=== PATIENT | female | born 1950 | race Caucasian/White ===

== ENCOUNTER 2022-11-09 11:48 | Outpatient (CLI) | payer MEDICARE, MEDICAID, SELFPAY ==
[2022-11-09 12:12] LABS: Basophils Absolute Auto 0.1 K/mm3 (0.0-0.1); Basophils Percent Auto 0.5 % (0.2-1.2); Eosinophils Absolute Auto 0.9 K/mm3 (0-0.3); Eosinophils Percent Auto 4.5 % (0-4.4); Hemoglobin 13.5 g/dL (12.0-15.0); Immature Granulocyte Absolute 0.11 K/mm3 (0.00-0.031); Immature Granulocyte Percent A 0.6 % (0-0.5); Lymphocytes Absolute Auto 3.81 K/mm3 (0.9-3.2); Lymphocytes Percent Auto 19.7 % (18.3-44.2); Mean Corpuscular HGB Conc 32.1 g/dl (32-36); Mean Corpuscular Hemoglobin 28.2 pg (26-34); Mean Corpuscular Volume 87.9 fl (80-100); Mean Platelet Volume 9.6 fl (7.4-10.4); Monocytes Absolute Auto 1.2 K/mm3 (0.1-0.6); Neutrophils Absolute Auto 13.3 K/mm3 (1.3-6.7); Neutrophils Percent Auto 68.7 % (45.5-73.1); Platelet Count Result 339 k/mm3 (150-375); Red Blood Count 4.78 M/mm3 (4.2-5.4); Red Cell Distribution Width 14.5 % (11.5-14.5); White Blood Count 19.4 K/mm3 (4.5-10.0)
[2022-11-09 13:33] LABS: Alanine Aminotransferase 38 U/L (6-35); Albumin Level 4.3 g/dL (3.5-5.1); Alkaline Phosphatase 127 U/L (38-126); Anion Gap 9 mmol/L (8-16); Aspartate Amino Transferase 33 U/L (14-36); Bilirubin,Total 0.6 mg/dL (0.2-1.3); Blood Urea Nitrogen 34 mg/dL (7-17); CRP 0.9 mg/dL (<1.0); Calcium 9.7 mg/dL (8.4-10.2); Carbon Dioxide 28 mmol/L (22-30); Chloride 103 mmol/L (98-107); Estimated Glomerular Filt Rate 40; Glucose 65 mg/dL (65-110); Potassium 4.6 mmol/L (3.4-5.0); Sodium 140 mmol/L (137-145)
[2022-11-09 13:44] LABS: Erythrocyte Sedimentation Rate 16 mm/hr (0-20)
[2022-11-13 14:12] LABS: BCR/abl Prior Result Not Given
[2022-11-13 14:58] LABS: BCR/abl P210 Not Detected
[2022-11-13 14:59] LABS: BCR/abl P210 Chg YES
== END 2022-11-09 11:49 | disposition home or self-care (01) ==
LOC: ANHLAB 11:54
PROVIDERS: Visit Provider Internal Medicine Hematology & Oncology
DX: D72.829 Elevated white blood cell count, unspecified (principal)
CPT/HCPCS: 36415; 80053; 81207; 85025; 85652; 86140; 88184

== ENCOUNTER 2023-04-04 13:35 | Outpatient (CLI) | payer MEDICARE, MEDICAID, SELFPAY ==
[2023-04-04 13:51] LABS: Basophils Absolute Auto 0.1 K/mm3 (0.0-0.1); Basophils Percent Auto 0.4 % (0.2-1.2); Eosinophils Absolute Auto 0.5 K/mm3 (0-0.3); Eosinophils Percent Auto 2.9 % (0-4.4); Hematocrit 40.5 % (37.0-47.0); Hemoglobin 13.2 g/dL (12.0-15.0); Immature Granulocyte Absolute 0.09 K/mm3 (0.00-0.031); Immature Granulocyte Percent A 0.6 % (0-0.5); Lymphocytes Absolute Auto 3.45 K/mm3 (0.9-3.2); Mean Corpuscular HGB Conc 32.6 g/dl (32-36); Mean Corpuscular Hemoglobin 29.1 pg (26-34); Mean Corpuscular Volume 89.4 fl (80-100); Mean Platelet Volume 9.6 fl (7.4-10.4); Monocytes Absolute Auto 1.1 K/mm3 (0.1-0.6); Monocytes Percent Auto 6.8 % (2.6-8.5); Neutrophils Absolute Auto 10.5 K/mm3 (1.3-6.7); Neutrophils Percent Auto 67.3 % (45.5-73.1); Platelet Count Result 322 k/mm3 (150-375); Red Blood Count 4.53 M/mm3 (4.2-5.4); Red Cell Distribution Width 14.1 % (11.5-14.5); White Blood Count 15.7 K/mm3 (4.5-10.0)
[2023-04-04 13:57] LABS: Blood Urea Nitrogen 30 mg/dL (8-26); Carbon Dioxide 23 mmol/L (22-30); Chloride 104 mmol/L (98-109); Estimated Glomerular Filt Rate 49; Glucose 80 mg/dL (70-105); Ionized Calcium (POC) 1.24 mmol/L (1.11-1.31); Potassium 4.2 mmol/L (3.5-4.9); Sodium 140 mmol/L (138-146)
[2023-04-04 14:38] LABS: Alanine Aminotransferase 29 U/L (6-35); Albumin Level 3.9 g/dL (3.5-5.1); Alkaline Phosphatase 91 U/L (38-126); Anion Gap 6 mmol/L (8-16); Aspartate Amino Transferase 23 U/L (14-36); Bilirubin,Total 0.4 mg/dL (0.2-1.3); Blood Urea Nitrogen 31 mg/dL (7-17); Calcium 9.6 mg/dL (8.4-10.2); Carbon Dioxide 26 mmol/L (22-30); Chloride 104 mmol/L (98-107); Estimated Glomerular Filt Rate 49; Glucose 82 mg/dL (65-110); Potassium 4.3 mmol/L (3.4-5.0); Sodium 136 mmol/L (137-145)
== END 2023-04-04 13:36 | disposition home or self-care (01) ==
LOC: ANHLAB 13:38
PROVIDERS: Visit Provider Internal Medicine Hematology & Oncology
DX: D72.829 Elevated white blood cell count, unspecified (principal)
CPT/HCPCS: 36415; 80047; 80053; 85025

== ENCOUNTER 2023-10-04 11:07 | Outpatient (CLI) | payer MEDICARE, MEDICAID, SELFPAY ==
[2023-10-04 11:20] LABS: Basophils Absolute Auto 0.1 K/mm3 (0.0-0.1); Basophils Percent Auto 0.4 % (0.2-1.2); Eosinophils Absolute Auto 0.4 K/mm3 (0-0.3); Eosinophils Percent Auto 2.8 % (0-4.4); Hematocrit 41.8 % (37.0-47.0); Hemoglobin 13.4 g/dL (12.0-15.0); Immature Granulocyte Percent A 0.6 % (0-0.5); Lymphocytes Absolute Auto 3.63 K/mm3 (0.9-3.2); Lymphocytes Percent Auto 23.1 % (18.3-44.2); Mean Corpuscular HGB Conc 32.1 g/dl (32-36); Mean Corpuscular Hemoglobin 28.3 pg (26-34); Mean Corpuscular Volume 88.2 fl (80-100); Mean Platelet Volume 9.4 fl (7.4-10.4); Monocytes Absolute Auto 1.1 K/mm3 (0.1-0.6); Monocytes Percent Auto 6.8 % (2.6-8.5); Neutrophils Absolute Auto 10.4 K/mm3 (1.3-6.7); Neutrophils Percent Auto 66.3 % (45.5-73.1); Platelet Count Result 315 k/mm3 (150-375); Red Blood Count 4.74 M/mm3 (4.2-5.4); Red Cell Distribution Width 13.6 % (11.5-14.5); White Blood Count 15.7 K/mm3 (4.5-10.0)
== END 2023-10-04 11:08 | disposition home or self-care (01) ==
LOC: ANHLAB 11:09
PROVIDERS: Visit Provider Internal Medicine Hematology & Oncology
DX: D72.829 Elevated white blood cell count, unspecified (principal)
CPT/HCPCS: 36415; 85025

== ENCOUNTER 2025-02-17 11:20 | Outpatient (CLI) | payer MEDICARE, MEDICAID, SELFPAY ==
--- OUTSIDE RECORDS SUMMARY | 2025-02-17 11:29 | XMS_ITS | Clinical Summary ---
Author Organization [facility] Address [address] [facility], [place] [address] Phone Care Team Providers Care Asbestos Remover Name Role Phone Ruslan Kellogg MD Unavailable Ren Green MD Primary Care Provider [phone] Allergies Active Allergy Reactions Criticality Noted Date Comments Brimonidine Other (see Comments) 03/23/2016 RED EYE Ramipril Hives 03/23/2016 Azithromycin Diarrhea 03/23/2016 Brinzolamide Other (see Comments) 03/23/2016 RED EYES Celecoxib Shortness of Breath 03/23/2016 Cyclobenzaprine Vomiting,Other (see Comments) 03/23/2016 DIZZINESS,DROZZINE SS Dextroamphetamine Shortness of Breath 03/23/2016 Gabapentin Nausea,Vomiting 03/23/2016 DIZZINESS,DROZZINE S, HOT AND CLAMMY Clotrimazole Hives 03/23/2016 Hydrochlorothiazide Hives 03/23/2016 Hydrocodone-Acetaminophen Nausea,Vomiting 03/23 Hydromorphone Nausea,Other (see Comments) 03/23/2016 DIZZINESS, HOT&CLAMMY, DROZZINESS Kiwi Extract Swelling 03/23/2016 Levofloxacin In D5w Rash 03/23/2016 Trichophyton Shortness of Breath 03/23/2016 Adhesive Tape Itching 03/23/2016 Tramadol Nausea 03/23/2016 DIZZINESS, DROZZINESS Medications Ipratropium-Albut roberto (COMBIVENT IN) take 100 mcg by inhalation 4 times daily. Active fluticasone-salme terol (ADVAIR) 250-50 MCG/DOSE AEROSOL POWDER, BREATH ACTIVATED take 1 Puff by inhalation 2 times daily. Active Tiotropium Wedron Monohydrate (SPIRIVA HANDIHALER IN) take by inhalation daily. Active nystatin 349670 UNIT/GM Powder Apply 100,000 Units 3 times daily. Apply to affected area as directed. Active Nystatin (NYAMYC) 853437 UNIT/GM Powder 100,000 Units by Apply externally route 4 times daily. Active insulin regular (HUMULIN R;NOVOLIN R) 100 UNIT/ML Solution 100 Units by Subcutaneous route 4 times daily (before meals and nightly). Use as directed Active insulin detemir (LEVEMIR) 100 UNIT/ML Solution 100 Units by Subcutaneous route every morning. Active diclofenac sodium (VOLTAREN) 1 % Gel Apply 1 % 4 times daily. Active desoximetasone (TOPICORT) 0.25 % Cream Apply 0.25 % 2 times daily. Active Travoprost, PUNEET Free, 0.004 % Solution Place in affected eye(s). Active furosemide (LASIX) 40 MG Tablet Take 40 mg by mouth daily. Active carvedilol (COREG) 6.25 MG Tablet Take 6.25 mg by mouth 2 times daily. Active meclizine (ANTIVERT) 12.5 MG Tablet Take 12.5 mg by mouth every 8 hours as needed. Active atorvastatin (LIPITOR) 40 MG Tablet Take 40 mg by mouth daily. Active montelukast (SINGULAIR) 10 MG Tablet Take 10 mg by mouth every evening. Active potassium chloride (MICRO-K) 10 MEQ Capsule CR Take 10 mEq by mouth 2 times daily. Active lisinopril (PRINIVIL, ZESTRIL) 5 MG Tablet Take 5 mg by mouth daily. Active albuterol (PROVENTIL, VENTOLIN) (2.5 MG/3ML) 0.083% Nebulizer Soln 2.5 mg by Nebulization route once. Active triamcinolone (KENALOG) 0.1 % Cream Apply 2 times daily. Apply thin film to affected area(s) twice daily until healed. Active Misc. Devices MiscIndications:A sthma without status asthmaticus, mild intermittent, uncomplicated Supply and instructions: 1 Each 0 03/23/20 16 Active hydrocortisone (ANUSOL-HC) 2.5 % Cream Apply daily. Apply to rectum as directed. Active HYDROcodone-aceta minophen (NORCO) 5-325 MG Tablet Take 1 Tablet by mouth every 4 hours as needed for Pain. Active solifenacin (VESICARE) 10 MG Tablet Take 10 mg by mouth daily. Active metFORMIN (GLUCOPHAGE) 500 MG Tablet Take 500 mg by mouth 2 times daily (with meals). Active Loratadine-Pseudo ephedrine (CLARITIN-D 24 HOUR PO) Take by mouth. Activ e Semaglutide (OZEMPIC, 1 MG/DOSE, SC) 5 mg by Subcutaneous route Every Sunday. Active ipratropium-albut roberto (COMBIVENT RESPIMAT) 20-100 MCG/ACT Aerosol Solution Combivent Respimat 20 mcg-100 mcg/actuation solution for inhalation INL 1 PUFF PO QID PRN Active Netarsudil-Latano prost (Rocklatan) 0.02-0.005 % Solution Rocklatan 0.02 %-0.005 % eye drops INSTILL 1 DROP IN BOTH EYES AT BEDTIME Active Dapagliflozin Propanediol (Farxiga) 5 MG Tablet Take by mouth. Activ e INSULIN DEGLUDEC SC by Subcutaneous route. Active doxycycline hyclate (VIBRA-TABS) 100 MG Tablet Take 100 mg by mouth 2 times daily. Active Active Problems Problem Noted Date Diagnosed Date HARINDER on CPAP 03/23/2016 Morbid obesity due to excess calories 03/23/2016 Hypertension 03/23/2016 Type 2 diabetes mellitus without complication Asthma without status asthmaticus 03/23/2016 Encounters Date Type Department Care Team Description 01/01/2025 Telephone [facility] - Pulmonology & Sleep Medicine [facility] [address] [place] [phone] Ruslan Kellogg MD 12/15/2024 Telephone [facility] - Pulmonology & Sleep Medicine - [address] [place] [phone] Ruslan Kellogg MD 12/09/2024 Telephone [facility] - Pulmonology & Sleep Medicine - [address] [place] [phone] Ruslan Kellogg MD from Last 3 Months Family History Medical History Relation Name Comments No Known Problems Brother Diabetes Father Heart Surgery Father No Known Problems Maternal Grandfather No Known Problems Maternal Grandmother Asthma Mother Chronic Obstructive Pulmonary Disease Mother Diabetes Mother No Known Problems Paternal Grandfather No Known Problems Paternal Grandmother Diabetes Sister YUNIEL Relation Name Status Comments Brother Alive Father Alive Maternal Grandfather Maternal Grandmother Mother Alive Paternal Grandfather Paternal Grandmother Sister YUNIEL Alive Social History Tobacco Use Types Packs/Day Years Used Date Smoking Tobacco: Never Smokeless Tobacco: Never Tobacco Cessation:Counseling Given: No Alcohol Use Standard Drinks/Week Comments No 0 (1 standard drink = 0.6 oz pur e alcohol) Sexually Active Control Partners Comments Not Currently Comments No Sex and Gender Information Value Date Recorded Sex Assigned at Not on file Legal Sex Female 12:33 AM CDT Gender Identity Not on file Sexual Orientation Not on file Last Filed Vital Signs Vital Sign Reading Time Taken Comments Blood Pressure 134/70 11/13/2024 11:45 AM SKIN THERAPIST Pulse 94 11/13/2024 11:45 AM SKIN THERAPIST Temperature 36.3 C (97.3 F) 11/13/2024 11:45 AM SKIN THERAPIST Respiratory Rate 18 11/13/2024 11:4 5 AM SKIN THERAPIST Oxygen Saturation 94% 11/13/2024 11: 45 AM SKIN THERAPIST Inhaled Oxygen Concentration - - Weight 100.6 kg (221 lb 11.2 oz) 2024 11:45 AM SKIN THERAPIST Height 165.1 cm (5' 5 ) 11/13/2024 11:4 5 AM SKIN THERAPIST Body Mass Index 36.89 11/13/2024 11:45 AM SKIN THERAPIST Plan of Treatment Upcoming Encounters Date Type Department Care Team (Late st Contact Info) Description 05/15/2025 11:30 AM CDT Office Visit [facility] - Pulmonology & Sleep Medicine - [address] [place] [phone] Ruslan Kellogg MD [address] [place] [phone] Health Maintenance Due Date Last Done Comments DEXA Bone Density 1950 Diabetes: Eye Exam 1950 Diabetes: Foot Exam 1950 Diabetes: Hemoglobin A1c 1950 Hepatitis C Virus (HCV) Screening 1950 Mammogram 1950 TdaP Immunization 1950 Diabetes: Nephropathy Screening 12/20/1969 Cologuard 12/20/2001 Immunochemical Fecal Occult Blood 12/20/2001 Respiratory Syncytial Virus (RSV) Immunization (Adult) (1 - Risk 60-74 years 1-dose series) 2011 Zoster Immunization (2 of 2) 11/05/2018 09/10/2018 SARS-COV-2 Immunization ( season) 2024 06/12/2023, 04/12/2022, 08/30/2021, Additional history exists Colonoscopy 06/12/2026 06/12/2016 Colorectal Cancer Screening 06/12/2026 06/12/2016 Pneumococcal Immunization (50+ years) Completed 06/30/2019, 01/15/2019, 07/19/2017, Additional history exists Pneumococcal Immunization Combined Discontinued 06/30/2019, 01/15/2019, 07/19/2017, Additional history exists Influenza Immunization Completed , 06/12/2023, 07/19/2022, Additional history exists Hepatitis B Immunization Aged Out No longer eligible based on patient's age to complete this topic Meningococcal Immunization (ACWY) Aged Out No longer eligible based on patient's age to complete this topic Rotavirus Immunization Aged Out No lo nger eligible based on patient's age to complete this topic Insurance [place] Member Subscriber Plan / Payer (Ef fective for All Dates) Name:Jessie Macdonald Relation to Subscriber:Self Name:Jessie Macdonald Payer ID:[id number] Group ID:Not on file Type:Not on file Address: [place] [phone] MEDICARE C [facility] Care Teams Asbestos Remover Relationship Specialty Start Date End Date Ren Green MD [address] [place] [phone] PCP - General Internal Medicine 07/16/18 Ruslan Kellogg MD [address] [place] [phone] Consulting Physician Pulmonary Disease 03/23/16
--- OUTSIDE RECORDS SUMMARY | 2025-02-17 11:29 | XMS_ITS | CONTINUITY OF CARE DOCUMENT ---
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 Name Role Phone Yovani Ramos MD Unavailable SOPHIE RAWLS MD Unavailable [phone] SOPHIE RAWLS MD Unavailable PROBLEMS Condition Status Date Provider Notes Asthma active SADE THOMPSON MD CHF active SADE THOMPSON MD Osteoarthrosis, generalized, involving unspecified site active SADE THOMPSON MD Personal history of unspecif ied malignant neoplasm active SADE THOMPSON MD ENCOUNTERS Date Type Provider Location Encounter Diag nosis - In-person encounter Office Visit SADE THOMPSON MD [place] [facility] - In-person encounter Office Visit SADE THOMPSON [facility] [place] [facility] - In-person encounter Office Visit SADE THOMPSON MD [place] [facility] - In-person encounter Office Visit SADE THOMPSON MD [place] [facility] - In-person encounter Office Visit S[facility] - In-person encounter Office Visit S[facility] - In-person encounter Office Visit SADE [facility] - In-[facility] encounter [facility] [place] [facility] - In-person encounter Office Visit SADE THOMPSON [facility] - In-person encounter Office Visit SADE THOM[facility] - In-person encounter Office Visit SADE THOM[facility] - In-person encounter Office Visit SADE THOM[facility] - In-person encounter Office Visit SADE THOM[facility] - In-person encounter Office Visit SADE THOM[facility] - In-person encounter Office Visit SADE TH[facility] - In-person encounter Office Visit SADE TH[facility] - In-person encounter Office Visit SADE TH[facility] - In-person encounter Office Visit SADE TH[facility] - In-person encounter Office Visit SADE TH[facility] - In-person encounter Office Visit SADE [facility] - In-person encounter Office Visit SADE [facility] - In-person encounter Office Visit SADE TH[facility] - In-person encounter Office Visit S[facility] - In-person encounter Office Visit [facility] - In-person encounter Office Visit SADE [facility] - In-person encounter Office Visit SADE [facility] - In-person encounter Office Visit SADE [facility] - In-person encounter Office Visit SADE TH[facility] - In-person encounter Office Visit SADE TH[facility] - In-person encounter Office Visit SADE THOM[facility] - In-person encounter Office Visit SADE [facility] - In-person encounter Office Visit SADE TH[facility] - In-person encounter Office Visit SADE THOMPS[facility] - In-person encounter Office Visit Danielle Chang [facility] - In-person encounter Office Visit Danielle [facility] - In-person encounter Office Visit Danielle Chang [facility] - In-person encounter Office Visit SADE THOMPSON MD [facility] - In-person encounter Office Visit SADE THOMPSON MD [facility] - In-person encounter Office Visit SADE THOMPSON [facility] - In[facility]person encounter Office Visit SADE THOMPSON MD [facility] - In-person encounter Office Visit SADE THOMPSON MD [facility] Personal history of unspecified malignant neoplasm - In-person encounter Office Visit SADE THOMPSON MD [facility] - In-person encounter Office Visit SADE THOMPSON MD [place] [facility] - In-person encounter Office Visit SADE THOMPSON MD [place] [facility] Osteoarthrosis, generalized, involving unspecified site - In-person encounter Office Visit SADE THOMPSON MD [place] [facility] - In-person encounter Office Visit Dianakeeley Chang [place] [facility] - In-person encounter Office Visit Danielle Chang [facility] - In-person encounter Office Visit Danielle Chang [facility] - In-person encounter Office Visit Danielle [facility] - In-person encounter Office Visit Danielle [facility] - In-person encounter Office Visit Danielle [facility] - In-person encounter Office Visit Danielle [facility] - In-person encounter Office Visit Danielle [facility] - In-person encounter Office Visit Danielle [facility] - In-person encounter Office Visit Dianakeeley Bernardo [facility] - In-person encounter Office Visit Danielle [facility] - In-person encounter Office Visit Danielle [facility] - In-person encounter Office Visit Danielle [facility] - In-person encounter Office Visit Danielle Chang [facility] - In-person encounter Office Visit Danielle [facility] - In-person encounter Office Visit Danielle [facility] - In-person encounter Office Visit Danielle [facility] - In-person encounter Office Visit Mercedes Saravia [facility] - In-person encounter Office Visit Danielle [facility] - In-person encounter Office Visit [facility] - In-person encounter Office Visit [facility] Office - In-person encounter Office Visit [facility] Office - In-person encounter Office Visit [facility] Office - In-person encounter Office Visit [facility] Office - In-person encounter Office Visit [facility] Office ALLERGIES Allergy Name Onset Date Reaction Criticality Status Z CARROLL High Criticality active LEVAQUIN Low Criticality active CELEBREX Low Criticality active HYDROCHLOROTHIAZIDE Low Criticality active GABAPENTIN Low Criticality active RESULTS Date Observation Value Provider Reference Range Interpretation Location basophil count, absolute 0.0 x10E3/uL [facility] 0.0-0.2 Eosinophil Absolute Count 0.5 X10E3/UL [facility] 0.0-0.4 High monocyte count, blood, automated 1.1 X10E3/UL [facility] 0.1-0.9 High lymphocyte count, blood, automated 3.4 X10E3/UL [facility] 0.7-3.1 High Absolute Neutrophils 11.3 X10E3/UL [facility] 1.4-7.0 High basophils as percent of blood leukocytes 0 % [facility] Not Estab. eosinophils as percent of blood leukocytes 3 % [facility] Not Estab. monocytes as percent of blood leukocytes 7 % [facility] Not Estab. lymphocytes as percent of blood leukocytes 21 % [facility] Not Estab. neutrophils as percent of blood leukocytes 69 % [facility] Not Estab. platelet count 319 X10E3/UL [facility] [id number] 2592/03/ 02 red blood cell distribution width 15.0 % [facility] 12.3-15.4 mean corpuscular hemoglobin concentration, RBC 32.1 G/DL [facility] 31.5-35.7 mean corpuscular hemoglobin, RBC 28.4 pg [facility] 26.6-33.0 mean corpuscular volume, RBC 88 fL [facility] 79-97 hematocrit, blood 38.6 % [facility] 34.0-46.6 hemoglobin, blood 12.4 g/dL [facility] 11.1-15.9 erythrocyte (RBC) count 4.37 X10E6/UL [facility] 3.77-5.28 leukocyte count, blood 16.4 X10E3/UL [facility] 3.4-10.8 High lipoprotein, beta, serum, point, quantitative, calculated 55 mg/dL [facility] 0-99 very low density lipoproteins 45 mg/dL [facility] 5-40 High HDL cholesterol, serum 37 mg/dL [facility] >39 Low triglyceride, serum, random 225 mg/dL [facility] 0-149 High cholesterol, serum 137 mg/dL [facility] [phone]/03/ 02 alanine aminotransferase (SGPT), serum 16 1/L [facility] 0-32 aspartate aminotransferase (SGOT), serum 18 1/L [facility] 0-40 alkaline phosphatase, serum 84 1/L [facility] 39-117 bilirubin, serum, total 0.3 mg/dL [facility] 0.0-1.2 albumin/globulin ratio, serum 1.5 [facility] 1.2-2.2 globulin, serum 2.9 [facility] 1.5-4.5 albumin, serum 4.3 g/dL [facility] 3.6-4.8 protein, total, serum 7.2 g/dL [facility] 6.0-8.5 calcium, serum 10.5 mg/dL [facility] 8.7-10.3 High carbon dioxide, venous blood 24 mmol/L [facility] 18-29 chloride, serum 99 mmol/L [facility] 96-106 potassium, serum 5.2 mmol/L [facility] 3.5-5.2 sodium, serum 141 mmol/L [facility] 145-267 7937/03/ 02 urea nitrogen/creatinine ratio, serum 24 [facility] 12-28 eGFR if not 42 mL/min/{1.7 3_m2} [facility] >59 Low creatinine, serum 1.32 mg/dL [facility] 0.57-1.00 High urea nitrogen, blood 32 mg/dL [facility] 8-27 High blood glucose, random 105 mg/dL [facility] 65-99 High hemoglobin A1C, blood, as % of total hemoglobin 7.1 % [facility] 4.8-5.6 High thyroid stimulating hormone, serum 0.158 ??IU/ML [facility] 0.270 - 4.200 Low very low density lipoproteins 56.8 mg/dL [facility] 5.0 - 40.0 High LDL/HDL (low-density lipoprotein/high-den sity lipoprotein) ratio 1.9 RATIO [facility] - lipoprotein, beta, serum, point, quantitative, calculated 67.2 (?) [facility] 0.0 - 100.0 HDL cholesterol, serum 36.0 mg/dL [facility] 45.0 - 65.0 Low cholesterol, serum 160.0 mg/dL [facility] 0.0 - 200.0 triglyceride, serum, fasting 284.0 mg/dL [facility] 0.0 - 150.0 High anion gap, serum 20.2 [facility] - albumin/globulin ratio, serum 1.4 g/dL [facility] 1.1 - 2.5 globulin, serum 3.2 [facility] 2.3 - 3.8 urea nitrogen/creatinine ratio, serum 31.4 [facility] Estimated Glomerular Filtration Rate (calc) 40.1 (?) [facility] 59.0 - Low chloride, serum [facility].8 [facility] 107.0 potassium, serum 5.0 mmol/L [facility] 3.5 - 5.1 sodium, serum 140.0 mmol/L [facility] 136.0 - 145.0 creatinine, serum 1.4 mg/dL [facility] 0.5 - 1.0 High carbon dioxide, venous blood 20.0 mmol/L [facility] 23.0 - 31.0 Low albumin, serum 4.5 g/dL [facility] 3.5 - 5.2 calcium, serum 10.1 mg/dL [facility] 8.6 - 10.2 aspartate aminotransferase (SGOT), serum 17.0 1/L [facility] 0.0 - 32.0 alkaline phosphatase, serum 96.0 1/L [facility] 40.0 - 130.0 alanine aminotransferase (SGPT), serum 24.0 1/L [facility] 0.0 - 33.0 protein, total, serum 7.7 g/dL [facility] 6.6 - 8.7 bilirubin, serum, total 0.3 mg/dL [facility] 0.0 - 1.2 urea nitrogen, blood 44.0 mg/dL [facility] 8.0 - 23.0 High blood glucose, random 178.0 mg/dL [facility] 74.0 - 99.0 High red blood cell distribution width, size density 49.2 fL [facility] - immature granulocytes, percentage of total cells, blood 0.7 % [facility] - nucleated red blood cells as percent of blood leukocytes 0.0 % [facility] - red blood cell (erythrocyte) count, per high power field 0.0 10*3/UL [facility] - eosinophils as percent of blood leukocytes 4.1 % [facility] - neutrophils as percent of blood leukocytes 65.6 % [facility] - Absolute Neutrophils 10.5 CELLS/UL [facility] 1.5 - 7.8 High basophils as percent of blood leukocytes 0.6 % [facility] - Absolute Basophils 0.1 CELLS/UL [facility] 0.0 - 0.2 monocytes as percent of blood leukocytes 5.2 % [facility] - Absolute Monocytes 0.8 CELLS/UL [facility] 0.2 - 1.0 lymphocytes as percent of blood leukocytes 23.8 % [facility] - Absolute Lymphocytes 3.8 CELLS/UL [facility] 0.9 - 3.9 mean platelet volume 11.9 (?) [facility] - platelet count 108.0 THOUSAND/UL [facility] 100.0 - 400.0 mean corpuscular hemoglobin concentration, RBC 31.4 G/DL [facility] 31.0 - 38.0 mean corpuscular hemoglobin, RBC 28.6 pg [facility] 25.0 - 35.0 mean corpuscular volume, RBC 91.2 fL [facility] 75.0 - 100.0 hematocrit, blood 40.5 % [facility] 35.0 - 55.0 hemoglobin, blood 12.7 g/dL [facility] 11.5 - 16.5 erythrocyte count, whole blood 4.4 MILLION/UL [facility] 3.5 - 5.5 hemoglobin A1C, blood, as % of total hemoglobin 8.5 % [facility] 4.0 - 5.6 High thyroid stimulating hormone, serum 0.027 ??IU/ML [facility] 0.270 - 4.200 Low very low density lipoproteins 53.4 mg/dL [facility] 5.0 - 40.0 High LDL/HDL (low-density lipoprotein/high-den sity lipoprotein) ratio 1.6 [facility] - lipoprotein, beta, serum, point, quantitative, calculated 67.6 (?) [facility] 0.0 - 100.0 HDL cholesterol, serum 43.0 mg/dL [facility] 45.0 - 65.0 Low cholesterol, serum 164.0 mg/dL [facility] 0.0 - 200.0 triglyceride, serum, fasting 267.0 mg/dL [facility] 0.0 - 150.0 High anion gap, serum 18.4 [facility] - albumin/globulin ratio, serum 1.4 g/dL [facility] 1.1 - 2.5 globulin, serum 3.0 [facility] 2.3 - 3.8 urea nitrogen/creatinine ratio, serum 31.1 [facility] - Estimated Glomerular Filtration Rate (calc) 67.0 (?) [facility] 59.0 - chloride, serum 101.6 mmol/L [facility] 98.0 - 107.0 potassium, serum 4.9 mmol/L [facility] 3.5 - 5.1 sodium, serum 142.0 mmol/L [facility] 136.0 - 145.0 creatinine, serum 0.9 mg/dL [facility] 0.5 - 1.0 carbon dioxide, venous blood 22.0 mmol/L [facility] 23.0 - 31.0 Low albumin, serum 4.2 g/dL [facility] 3.5 - 5.2 calcium, serum 10.5 mg/dL [facility] 8.6 - 10.2 High aspartate aminotransferase (SGOT), serum 26.0 1/L [facility] 0.0 - 32.0 alkaline phosphatase, serum 105.0 1/L [facility] 40.0 - 130.0 alanine aminotransferase (SGPT), serum 33.0 1/L [facility] 0.0 - 33.0 protein, total, serum 7.2 g/dL [facility] 6.6 - 8.7 bilirubin, serum, total 0.4 mg/dL [facility] 0.0 - 1.2 urea nitrogen, blood 28.0 mg/dL [facility] 8.0 - 23.0 High blood glucose, random 192.0 mg/dL [facility] 74.0 - 99.0 High red blood cell distribution width, size density 45.6 fL [facility] - immature granulocytes, percentage of total cells, blood 0.6 % [facility] - nucleated red blood cells as percent of blood leukocytes 0.0 % [facility] - red blood cell (erythrocyte) count, per high power field 0.0 10*3/UL [facility] eosin[facility] as percent of blood leukocytes 3.2 % [facility] - neutrophils as percent of blood leukocytes 65.9 % [facility] - Absolute Neutrophils 10.5 CELLS/UL [facility] 1.5 - 7.8 High basophils as percent of blood leukocytes 0.6 % [facility] - Absolute Basophils 0.1 CELLS/UL [facility] 0.0 - 0.2 monocytes as percent of blood leukocytes 5.9 % [facility] Absolute Monocytes 0.9 CELLS/UL [facility] 0.2 - 1.0 lymphocytes as percent of blood leukocytes 23.8 % [facility] - Absolute Lymphocytes 3.8 CELLS/UL [facility] 0.9 - 3.9 mean platelet volume 11.4 (?) [facility] - platelet count 229.0 THOUSAND/UL [facility] 100.0 - 400.0 mean corpuscular hemoglobin concentration, RBC 31.1 G/DL [facility] 31.0 - 38.0 mean corpuscular hemoglobin, RBC 27.5 pg [facility] 25.0 - 35.0 mean corpuscular volume, RBC 88.4 fL [facility] 75.0 - 100.0 hematocrit, blood 47.3 % [facility] 35.0 - 55.0 hemoglobin, blood 14.7 g/dL [facility] 11.5 - 16.5 erythrocyte count, whole blood 5.4 MILLION/UL [facility] 3.5 - 5.5 hemoglobin A1C, blood, as % of total hemoglobin 10.7 % [facility] 4.0 - 5.6 High thyroid stimulating hormone, serum 0.082 ??IU/ML [facility] 0.270 - 4.200 Low very low density lipoproteins 42.4 mg/dL [facility] 5.0 - 40.0 High LDL/HDL (low-density lipoprotein/high-den sity lipoprotein) ratio 1.7 RATIO [facility] - lipoprotein, beta, serum, point, quantitative, calculated 83.6 (?) [facility] 0.0 - 100.0 HDL cholesterol, serum 48.0 mg/dL [facility] 45.0 - 65.0 cholesterol, serum 174.0 mg/dL [facility] 0.0 - 200.0 triglyceride, serum, fasting 212.0 mg/dL [facility] 0.0 - 150.0 High anion gap, serum 15.6 [facility] - albumin/globulin ratio, serum 2.7 g/dL [facility] 1.1 - 2.5 High globulin, serum 3.3 [facility] 2.3 - 3.8 urea nitrogen/creatinine ratio, serum 27.5 [facility] - Estimated Glomerular Filtration Rate (calc) 48.1 (?) [facility] 59.0 - Low chloride, serum 97.4 mmol/L [facility] 98.0 - 107.0 Low potassium, serum 4.6 mmol/L [facility] 3.5 - 5.1 sodium, serum 139.0 mmol/L [facility] 136.0 - 145.0 creatinine, serum 1.2 mg/dL [facility] 0.5 - 1.0 High carbon dioxide, venous blood 26.0 mmol/L [facility] 23.0 - 31.0 albumin, serum 4.6 g/dL [facility] 3.5 - 5.2 calcium, serum 10.0 mg/dL [facility] 8.6 - 10.2 aspartate aminotransferase (SGOT), serum 20.0 1/L [facility] 0.0 - 32.0 alkaline phosphatase, serum 98.0 1/L [facility] 40.0 - 130.0 alanine aminotransferase (SGPT), serum 29.0 1/L [facility] 0.0 - 33.0 protein, total, serum 7.9 g/dL [facility] 6.6 - 8.7 bilirubin, serum, total 0.4 mg/dL [facility] 0.[facility] - 1.2 urea nitrogen, blood 33.0 mg/dL [facility] 8.0 - 23.0 High blood glucose, random 192.0 mg/dL [facility] 74.0 - 99.0 High red blood cell distribution width, size density 49.1 fL [facility] immature granulocytes, percentage of total cells, blood 0.7 % [facility] nucleated red blood cells as percent of blood leukocytes 0.0 % [facility] red blood cell (erythrocyte) count, per high power field 0.0 10*3/UL [facility] eosinophils as percent of blood leukocytes 3.1 % [facility] neutrophils as percent of blood leukocytes 61.6 % [facility] Absolute Neutrophils 8.4 CELLS/UL [facility] 1.5 - 7.8 [facility] basophils as percent of blood leukocytes 0.6 % [facility] Absolute Basophils 0.1 CELLS/UL [facility] 0.0 - 0.2 monocytes as percent of blood leukocytes 6.6 % [facility] Absolute Monocytes 0.9 CELLS/UL [facility] 0.2 - 1.0 lymphocytes as percent of blood leukocytes 27.4 % [facility] Absolute Lymphocytes 3.8 CELLS/UL [facility] 0.9 - 3.9 mean platelet volume 10.8 (?) [facility] - platelet count 211.0 THOUSAND/UL [facility] 100.0 - 400.0 mean corpuscular hemoglobin concentration, RBC 30.1 G/DL [facility] 31.0 - 38.0 Low mean corpuscular hemoglobin, RBC 27.5 pg [facility] 25.0 - 35.0 mean corpuscular volume, RBC 91.4 fL [facility] 75.0 - 100.0 hematocrit, blood 45.5 % [facility] 35.0 - 55.0 hemoglobin, blood 13.7 g/dL [facility] 11.5 - 16.5 erythrocyte count, whole blood 5.0 MILLION/UL [facility] 3.5 - 5.5 hemoglobin A1C, blood, as % of total hemoglobin 8.0 % [facility] 4.0 - 6.0 High red blood cell distribution width, size density 52.4 fL [facility] - immature granulocytes, percentage of total cells, blood 0.6 % [facility] - nucleated red blood cells as percent of blood leukocytes 0.1 % [facility] - red blood cell (erythrocyte) count, per high power field 0.0 10*3/UL [facility] - eosinophils as percent of blood leukocytes 3.3 % [facility] - neutrophils as percent of blood leukocytes 61.3 % [facility] - Absolute Neutrophils 9.7 CELLS/UL [facility] 1.5 - 7.8 High basophils as percent of blood leukocytes 0.6 % [facility] - Absolute Basophils 0.1 CELLS/UL [facility] 0.0 - 0.2 monocytes as percent of blood leukocytes 5.9 % [facility] - Absolute Monocytes 0.9 CELLS/UL [facility] 0.2 - 1.0 lymphocytes as percent of blood leukocytes 28.3 % [facility] - Absolute Lymphocytes 4.5 CELLS/UL [facility] 0.9 - 3.9 High mean platelet volume 10.5 (?) [facility] - platelet count 343.0 THOUSAND/UL [facility] 100.0 - 400.0 mean corpuscular hemoglobin concentration, RBC 30.3 G/DL [facility] 31.0 - 38.0 Low mean corpuscular hemoglobin, RBC 27.6 pg [facility] 25.0 - 35.0 mean corpuscular volume, RBC 91.2 fL [facility] 75.0 - 100.0 hematocrit, blood 40.3 % [facility] 35.0 - 55.0 hemoglobin, blood 12.2 g/dL [facility] 11.5 - 16.5 erythrocyte count, whole blood 4.4 MILLION/UL [facility] 3.5 - 5.5 hemoglobin A1C, blood, as % of total hemoglobin 7.0 % [facility] 4.0 - 6.0 High very low density lipoproteins 55.0 mg/dL [facility] 5.0 - 40.0 High LDL/HDL (low-density lipoprotein/high-den sity lipoprotein) ratio 1.8 RATIO [facility] - lipoprotein, beta, serum, point, quantitative, calculated 72.0 (?) [facility] 0.0 - 100.0 HDL cholesterol, serum 39.0 mg/dL [facility] 45.0 - 65.0 Low cholesterol, serum 166.0 mg/dL [facility] 0.0 - 200.0 triglyceride, serum, fasting 275.0 mg/dL [facility] 0.0 - 150.0 High thyroid stimulating hormone, serum 0.049 ?IU/ML [facility] 0.270 - 4.200 Low anion gap, serum 19.5 [facility] - albumin/globulin ratio, serum 2.5 g/dL [facility] 1.1 - 2.5 High globulin, serum 3.2 [facility] 2.3 - 3.8 urea nitrogen/creatinine ratio, serum 38.9 [facility] - Estimated Glomerular Filtration Rate (calc) 67.2 (?) [facility] 59.0 - chloride, serum 100.5 mmol/L [facility] 98.0 - 107.0 potassium, serum 5.3 mmol/L [facility] 3.5 - 5.1 High sodium, serum 140.0 mmol/L [facility] 136.0 - 145.0 creatinine, serum 0.9 mg/dL [facility] 0.5 - 0.9 carbon dioxide, venous blood 20.0 mmol/L [facility] 23.0 - 31.0 Low albumin, serum 4.4 g/dL [facility] 3.5 - 5.2 calcium, serum 10.1 mg/dL [facility] 8.6 - 10.2 aspartate aminotransferase (SGOT), serum 16.0 1/L [facility] 0.0 - 32.0 alkaline phosphatase, serum 81.0 1/L [facility] 40.0 - 130.0 alanine aminotransferase (SGPT), serum 23.0 1/L [facility] 0.0 - 33.0 protein, total, serum 7.6 g/dL [facility] 6.6 - 8.7 bilirubin, serum, total 0.3 mg/dL [facility] 0.0 - 1.2 urea nitrogen, blood 35.0 mg/dL [facility] 8.0 - 23.0 High blood glucose, random 142.0 mg/dL [facility] 74.0 - 99.0 High thyroid stimulating hormone, serum 0.03 u[IU]/mL [facility] 0.270-4.20 Low thyroxine, serum, free 1.16 ng/dL [facility] 0.93-1.7 Normal thyroxine, serum, total 7.10 ug/dL [facility] 4.5-11.7 Normal hemoglobin A1C, blood, as % of total hemoglobin 8.2 % [facility] Normal bilirubin, serum, total 0.4 mg/dL [facility] 0-1.2 Normal alanine aminotransferase (SGPT), serum 19 1/L [facility] 0-33 Normal aspartate aminotransferase (SGOT), serum 15 1/L [facility] 0-32 Normal alkaline phosphatase, serum 95 1/L [facility] 35-104 Normal albumin/globulin ratio, serum 1.4 ratio [facility] 1.0-2.6 Normal globulin, serum 2.9 [facility] 1.6-4.0 Normal albumin, serum 4.2 g/dL [facility] 3.97-4.94 Normal protein, total, serum 7.1 g/dL [facility] 6.6-8.7 Normal calcium, serum 9.6 mg/dL [facility] 8.6-10.0 Normal blood glucose, random 226 mg/dL [facility] 74-109 High eGFR if 109 mL/min/{1.7 3_m2} [facility] >60 Normal eGFR if not 90 mL/min/{1.7 3_m2} [facility] >60 Normal urea nitrogen/creatinine ratio, serum 21.4 ratio [facility] 8.0-25.0 Normal creatinine, serum 0.7 mg/dL [facility] 0.50-0.90 Normal urea nitrogen, blood 15 mg/dL [facility] 6-20 Normal carbon dioxide, venous blood 25 mmol/L [facility] 22-29 Normal chloride, serum 98 MEQ/L [facility] 98-107 Normal potassium, serum 4.8 MEQ/L [facility] 3.5-5.1 Normal sodium, serum 140 MEQ/L [facility] 136-145 Normal LDL/HDL (low-density lipoprotein/high-den sity lipoprotein) ratio 1.1 RATIO [facility] 0.2-4.3 Normal VLDL cholesterol 37 mg/dL [facility] 8-41 Normal lipoprotein, beta, serum, point, quantitative, calculated 59 mg/dL [facility] 0-130 Normal cholesterol/HDL ratio, serum, percent 2.8 ratio [facility] 1.5-5.6 Normal HDL cholesterol, serum 52 mg/dL [facility] 65 Low triglyceride, serum, fasting 184 mg/dL [facility] Normal cholesterol, serum 148 mg/dL [facility] 0-199 Normal basophils, absolute, manual 0.07 K/UL [facility] 0.0-0.1 Normal basophils as percent of blood leukocytes 0.6 % [facility] 0.3-0.9 Normal eosinophils, absolute, manual 0.22 K/UL [facility] 0.1-0.5 Normal eosinophils as percent of blood leukocytes 2.0 % [facility] 1.1-7.6 Normal monocyte count, blood 1.14 10*3/mm3 [facility] 0.2-0.7 High monocytes as percent of blood leukocytes 10.1 % [facility] 4.2-11.2 Normal lymphocytes as percent of blood leukocytes 3.53 K/UL [facility] 0.6-3.4 High lymphocytes, absolute 31.4 % [facility] 19.8-46.2 Normal neutrophil count, absolute 6.29 K/uL [facility] 1.9-5.9 High neutrophils as percent of blood leukocytes 55.9 % [facility] 42.7-72.4 Normal mean platelet volume 9.3 % [facility] 7.4-9.9 Normal red blood cell distribution width 12.8 % [facility] 10.9-14.6 Normal platelet count 93 10*3/mm3 [facility] 165-429 Low mean corpuscular hemoglobin concentration, RBC 33.5 % [facility] 32.5-34.5 Normal mean corpuscular hemoglobin, RBC 29.2 pg [facility] 21.5-33.3 Normal mean corpuscular volume, RBC 87 fL [facility] 76-98 Normal hematocrit, blood 38.7 % [facility] 34.4-47.3 Normal hemoglobin, blood 13.0 g/dL [facility] 11.8-15.6 Normal erythrocyte (RBC) count 4.45 M/UL [facility] 3.8-5.5 Normal leukocyte count, blood 11.2 10*3/mm3 [facility] 3.7-8.9 High Clostridium difficile toxin A+B, serum, quantitative Negative [facility] Negative thyroxine, serum, total 9.1 ug/dL [facility] 4.5-12.0 thyroid stimulating hormone, serum 0.031 u[IU]/mL [facility] 0.450-4.500 Low lipoprotein, beta, serum, point, quantitative, calculated 57 mg/dL [facility] 0-99 very low density lipoproteins 23 mg/dL [facility] 5-40 HDL cholesterol, serum 40 mg/dL [facility] >39 triglyceride, serum, random 113 mg/dL [facility] 0-149 cholesterol, serum 120 mg/dL [facility] [phone]/03/ 20 alanine aminotransferase (SGPT), serum 15 1/L [facility] 0-40 aspartate aminotransferase (SGOT), serum 14 1/L [facility] 0-40 alkaline phosphatase, serum 90 1/L [facility] 25-150 bilirubin, serum, total 0.4 mg/dL [facility] 0.0-1.2 albumin/globulin ratio, serum 1.3 [facility] 1.1-2.5 globulin, serum 2.9 [facility] 1.5-4.5 albumin, serum 3.9 g/dL [facility] 3.5-5.5 protein, total, serum 6.8 g/dL [facility] 6.0-8.5 calcium, serum 9.5 mg/dL [facility] 8.7-10.2 carbon dioxide, venous blood 26 mmol/L [facility] 20-32 chloride, serum 104 mmol/L [facility] 97-108 potassium, serum 4.4 mmol/L [facility] 3.5-5.2 sodium, serum 141 mmol/L [facility] [phone]/03/ 20 urea nitrogen/creatinine ratio, serum 24 [facility] 9-23 High eGFR if 110 mL/min/{1.7 3_m2} [facility] >59 eGFR if not 95 mL/min/{1.7 3_m2} [facility] >59 creatinine, serum 0.70 mg/dL [facility] 0.57-1.00 urea nitrogen, blood 17 mg/dL [facility] 6-24 blood glucose, random 104 mg/dL [facility] 65-99 High basophil count, absolute 0.0 x10E3/uL [facility] 0.0-0.2 Eosinophil Absolute Count 0.6 X10E3/UL [facility] 0.0-0.4 High monocyte count, blood, automated 0.8 X10E3/UL [facility] 0.1-1.0 lymphocyte count, blood, automated 4.9 X10E3/UL [facility] 0.7-4.5 High Absolute Neutrophils 9.2 X10E3/UL [facility] 1.8-7.8 High basophils as percent of blood leukocytes 0 % [facility] 0-3 eosinophils as percent of blood leukocytes 4 % [facility] 0-7 monocytes as percent of blood leukocytes 5 % [facility] 4-13 lymphocytes as percent of blood leukocytes 31 % [facility] 14-46 neutrophils as percent of blood leukocytes 60 % [facility] 40-74 platelet count 362 X10E3/UL [facility] [phone]/03/ 20 red blood cell distribution width 14.3 % [facility] 11.7-15.0 mean corpuscular hemoglobin concentration, RBC 31.9 G/DL [facility] 32.0-36.0 Low mean corpuscular hemoglobin, RBC 27.2 pg [facility] 27.0-34.0 mean corpuscular volume, RBC 85 fL [facility] 80-98 hematocrit, blood 42.9 % [facility] 34.0-44.0 hemoglobin, blood 13.7 g/dL [facility] 11.5-15.0 erythrocyte (RBC) count 5.04 X10E6/UL [facility] 3.80-5.10 leukocyte count, blood 15.6 X10E3/UL [facility] 4.0-10.5 High HISTORY OF MEDICATION USE Medication Status Instructions Dates Provider Indications Com ments ADVAIR DISKUS 250-50 MCG/DOSE INHALATION AEROSOL POWDER BREATH ACTIVATED active use one inhalation by mouth twice daily 2 Brissa Patel ACCU-CHEK SOFTCLIX LANCETS active test 6 times daily 8 Brissa Patel dx E11.9 MECLIZINE HCL 12.5 MG ORAL TABLET active take one tablet by mouth twice daily 8 Brissa Patel POTASSIUM CHLORIDE ANTONIO ER 10 MEQ ORAL TABLET EXTENDED RELEASE active 1 TABLET DAILY 1 SADE THOMPSON MD LASIX 40 MG ORAL TABLET active ALTERNATE TAKING 1 TABLET DAILY AND 2 TABLETS DAILY 1 SADE THOMPSON MD LISINOPRIL 5 MG ORAL TABLET active ONE TAB. DAILY 2 SADE THOMPSON MD HUMULIN N 100 UNIT/ML SUBCUTANEOUS SUSPENSION active 15 units twice daily 1 SADE THOMPSON MD LANTUS 100 UNIT/ML SUBCUTANEOUS SOLUTION active INJECT 50 UNITS IN THE MORNING 1 SADE THOMPSON MD POTASSIUM CHLORIDE ANTONIO ER 10 MEQ ORAL TABLET EXTENDED RELEASE completed ONE TAB. DAILY 5 - 9 SADE THOMPSON MD VISINE SOLUTION active 5 SADE THOMPSON MD MONTELUKAST SODIUM 10 MG ORAL TABLET active ONE TABLET DAILY 5 SADE THOMPSON MD LIPITOR 40 MG ORAL TABLET active ONE TAB. DAILY 5 SADE THOMPSON MD LASIX 40 MG ORAL TABLET completed ONE TABLET DAILY 5 - 9 SADE THOMPSON MD ASPIRIN 81 MG ORAL TABLET active ONE TAB. DAILY 5 SADE THOMPSON MD COREG 6.25 MG ORAL TABLET active ONE TAB twice a day 1 Yovani Ramos MD TOPICORT 0.25 % EXTERNAL CREAM completed APPLY LOCALLY TWICE DAILY 5 - 9 SADE THOMPSON MD ADVAIR DISKUS 250-50 MCG/DOSE INHALATION AEROSOL POWDER BREATH ACTIVATED completed 1 PUFF TWICE DAILY 5 - 9 SADE THOMPSON MD SPIRIVA HANDIHALER 18 MCG INHALATION CAPSULE completed 1 PUFF DAILY 5 - 9 SADE THOMPSON MD COMBIVENT RESPIMAT 20-100 MCG/ACT INHALATION AEROSOL SOLUTION active 2 PUFFS FOUR TIMES DAILY 5 SADE THOMPSON MD ALBUTEROL SULFATE (2.5 MG/3ML) 0.083% INHALATION NEBULIZATION SOLUTION active USE IN NEBULIZER THREE TIMES DAILY NEEDED 8 SADE THOMPSON MD CEPHALEXIN 500 MG ORAL CAPSULE completed one tab four times daily until gone - 5 SADE THOMPSON MD MEDROL TABLET THERAPY PACK completed as per instructions - 5 SADE THOMPSON MD INSURANCE PROVIDERS Payer name Policy type / Coverage type [employer] A[employer] MEDICARE ADVANTAGE ([facility] P[facility]) Other [id number] [facility] Medicaid 2 [id number] TREATMENT PLAN Date Name Stress Regaden[facility]on HEMOGLOBIN A1c TSH, 3RD GENERATION W/REFLEX TO FT4 LIPID PANEL COMPREHENSIVE METABO LIC PANEL, W/EGFR CBC (INCLUDES DIFF/P LT) TSH, 3RD GENERATION W/REFLEX TO FT4 HEMOGLOBIN A1c LIPID PANEL COMPREHENSIVE METABO LIC PANEL, W/EGFR CBC (INCLUDES DIFF/P LT) HEMOGLOBIN A1c TSH, 3RD GENERATION W/REFLEX TO FT4 LIPID PANEL COMPREHENSIVE METABO LIC PANEL W/EGFR CBC (INCLUDES DIFF/P LT) TSH, 3RD GENERATION W/REFLEX TO FT4 HEMOGLOBIN A1c LIPID PANEL COMPREHENSIVE METABO LIC PANEL W/EGFR CBC (INCLUDES DIFF/P LT) LIPID PANEL TSH, 3RD GENERATION W/REFLEX TO FT4 HEMOGLOBIN A1c COMPREHENSIVE METABO LIC PANEL W/EGFR CBC (INCLUDES DIFF/P LT) DLCO Order - [id number] FRC Order - [id number] FVC Order - [id number] DLCO Order - [id number] FRC Order - [id number] FVC Order - [id number] HISTORY OF PROCEDURES Procedure Date Procedure Name Provider Procedure Notes S tatus BLOOD COUNT HEMOGLOBIN SADE THOMPSON MD completed FVC - 62512 SADE THOMPSON MD complete d FRC - 99459 SADE THOMPSON MD complete d DLCO - 77085 SADE THOMPSON MD complet ed BLOOD COUNT HEMOGLOBIN SADE THOMPSON MD completed BLOOD COUNT HEMOGLOBIN SADE THOMPSON MD completed ePrescribe - Check t his box if eRx is used SADE THOMPSON MD completed
--- OUTSIDE RECORDS SUMMARY | 2025-02-17 11:29 | XMS_ITS | Data Portability ---
Author Organization [place] [facility] [place] [facility], Main Office Address [address] [place] [address] Care Team Providers Care Medical Assisting Instructor Name Role Phone SOPHIE GREEN Primary Care Provider SOPHIE GREEN Referring Provider Assessment Encounter Date Assessment Date Assessment LastModified by Organization Details LastModified Time 02/21/2024 02/21/2024 This note is dictated and transcribed by [employer]. C[employer] variances may occur. Despite proofreading, typographical errors may occur. Occasional wrong-word or 'bdfdu-i-stvh' substitutions may have occurred due to the inherent limitations of voice recording. Read the chart carefully and recognize, using context, where substitutions have occurred. Not available 02/21/2024 11:49:04 05/06/2024 05/06/2024 This note is dictated and transcribed by [employer]. [employer]per variances may occur. Despite proofreading, typographical errors may occur. Occasional wrong-word or 'zqiuw-o-uxjb' substitutions may have occurred due to the inherent limitations of voice recording. Read the chart carefully and recognize, using context, where substitutions have occurred. Not available 05/07/2024 09:18:45 07/29/2024 07/29/2024 This note is dictated and transcribed by [employer]. C[employer]per variances may occur. Despite proofreading, typographical errors may occur. Occasional wrong-word or 'oykoy-v-rqwk' substitutions may have occurred due to the inherent limitations of voice recording. Read the chart carefully and recognize, using context, where substitutions have occurred. Not available 07/29/2024 14:32:22 11/05/2024 11/05/2024 This note is dictated and transcribed by [employer]. C[employer]per variances may occur. Despite proofreading, typographical errors may occur. Occasional wrong-word or 'ljwgs-h-ocgz' substitutions may have occurred due to the inherent limitations of voice recording. Read the chart carefully and recognize, using context, where substitutions have occurred. Not available 11/06/2024 08:42:03 02/10/2025 02/10/2025 This note is dictated and transcribed by [employer]. C[employer] Mason Helper variances may occur. Despite proofreading, typographical errors may occur. Occasional wrong-word or 'ahwaq-z-pyzm' substitutions may have occurred due to the inherent limitations of voice recording. Read the chart carefully and recognize, using context, where substitutions have occurred. Not available 02/10/2025 11:49:46 Plan of Treatment Reminders Order Date Submit Date Provider Last Modified By Organization Details Last Modified Time Details Appointments Establish ed Patient 15 2024 11:00A M Howard Hauser DPM Not available Not available Not available Lab None recorded. Referral None recorded. Procedures None recorded. Surgeries None recorded. Imaging None recorded. Medication Orders None recorded. Patient TargetsNo targets recorded. Patient InstructionsNo instructions recorded. Reason for Referral None Reported. Results Created Date Observation Date Name Description Value Unit Range Abnormal Flag Note LastModifiedBy Organization Detail LastModifiedTime 03/28/20 24 03/28/2024 DEXA, axial skele ton [facility] [address] [place] [address] Patien t Name: CHIKI MACDONALD Access ion #: [id number] Sex: F : 1950 2 Dictat ed By: Morena Portillo Attend ing Physic rafy: JULIUS GREEN Orderi Physic rafy: JULIUS GREEN Exam Date: 2023 12:19 PM Exam Name: XR DEXA-H IPS PELVIS SPINE Admitt ing Diagno sis(es ): INDICA TION: 73 years old, Female ; post menopa usal state. Osteop orosis screen ing. DEXA SCAN: BONE DENSIT Y REPORT : AP SPINE (L1-L4 ) : T Score: 7.0, this is likely over measur ed due to sclero tic degene rative endpla te change s. LEFT HIP TOTAL : T Score: 0.7 RT HIP TOTAL : T Score: 0.2 TOTAL BILAT HIP AVG: T Score: 0.5 10 YEAR FRACTU RE RISK* Not provid ed. IMPRES ANKITA: Normal bone minera l densit y of the bilate ral hips and lumbar spine. ------ ------ ------ ------ ------ ------ ------ ------ ----- *FRAX versio n 3.08. Fractu re probab ility calcul ated for an untrea marilee patien t. Fractu re probab ility may be lower if the patien t has receiv ed treatm ent. T-scor e: compar betito by rosa robles deviat ion ([place]) to a young adult popula tion, matche d for sex and ethnic ity (used for postme nopaus al women and men >50 years) and classi fied by WHO criter ia. Page 1 [facility] [address] [place] [address] [phone] Patien t Name: CHIKI MACDONALD Access ion #: [id number] Sex: F : 1950 2 Dictat ed By: Morena Portillo Attend ing Physic rafy: SINAI MORTENSEN [facility] Physic rafy: JULIUS GREEN Exam Date: 2023 12:19 PM Exam Name: XR DEXA-H IPS PELVIS SPINE Admitt ing Diagno sis(es ): -1.0: normal <-1.0 to >-2.5: osteop enia -2.5: osteop orosis -2.5 plus fragil ity fractu re: severe osteop orosis Z-scor e: compar ed by [place] to an age, sex, and ethnic ity popula tion (used for premen opausa l women, men <50 years, and childr en instea d of T-scor e WHO criter ia 4) <-2.0: below expect ed range/ low bone densit y for age, and a cause should be sought Electr onical ly Signed by: Morena Portillo at 2023 12:38: 41 PM Page 2 [email or web address] [facility] (Imaging) [address] [place], [address], 04/06/2024 10:52:59 04/18/2004/16/2024 MAMMO , scree ben, digit al, bilat eral [facility] [address] [place] [address] Patien t Name: CHIKI MACDONALD Access ion #: [id number] Sex: F : 1950 5 Dictat ed By: Morena Portillo Attend ing Physic rafy: JULIUS GREEN Orderi ng Physic rafy: JULIUS GREEN Exam Date: 2023 12:55 PM Exam Name: MG DIG MAMMO SCRN BILAT Admitt ing Diagno sis(es ): CLINIC AL INDICA TION: Screen ing COMPAR BETITO STUDY: 04/25/21 ; 0 TECHNI QUE: Using a full field digita l 2D mammog jimmy unit CC and MLO views of both breast s are perfor med. FINDIN GS: BREAST COMPOS ITION: B - There are scatte red areas of fibrog landul ar densit y in the bilate ral breast s. No suspic ious masses , rain ectura l distor tion, asymme tries or suspic ious calcif icatio ns in both breast s. IMPRES ANKITA: No eviden ce of malign thomas. FOLLOW UP RECOMM ENDATI ON: Recomm end annual mammog alyx. BIRADS : 2 - Benign Electr onical ly Signed by: Morena Portillo at 2023 13:57: 38 PM Page 1 [email or web address] [facility] ([facility]) [address] [place], [address], 06/05/2024 11:20:59 Result Notes None recorded. Problems Name Problem SNOMED Code Status Onset Date Resolution Date Notes Provider Name and Address Organization Details Recorded Time Metatarsa lgia 09095800 Completed 201810/01/2019 Not Available [facility] 3 01:18:01 Paronychi a of toe of right foot 24970371522 053490 Active 2020 Not Available [facility] 3 20:40:18 Paronychi a of toe of right foot 47768834095 035803 Completed 201910/14/2020 Not Available [facility] 3 01:18:01 History of diabetic foot ulcer 00967739742 775933 Active 2020 Not Available [facility] 3 20:40:18 Leukocyto sis 508779023 Active 2022 Not Available [facility] 3 20:40:18 Hammer toe 028074079 Active 2017 Howard Hauser DPM [address], [address], [place], [address] , [employer] 5 13:50:00 Hammer toe 465102664 Active 2020 Not Available [facility] 3 20:40:18 Postopera tive care Active 2021 Not Available [facility] 3 20:40:18 Hyperchol esterolem ia 10821478 Active 2017 Not Available [facility] 3 20:40:18 Pain of right shoulder joint 75827306042 057921 Active 2021 Not Available [facility] 3 20:40:18 White blood cell count outside reference range 336787763 Active 2022 Not Available [facility] 3 20:40:18 Asthma 504412326 Active 2017 Not Available [facility] 3 20:40:18 Callosity on toe 459215067 Active 2017 Howard Hauser DPM [address], [address], [place], [address] , [employer] 5 13:49:48 Abdominal pain 50742697 Active 2021 Not Available [facility] 3 20:40:18 Neuropath y due to diabetes mellitus 092304630 Active 2017 Not Available [facility] 3 20:40:18 Ankle pain 362437925 Completed 201810/14/2020 Not Available [facility] 3 01:18:02 Unable to cut own toenails 373343851 Active 2021 Not Available [facility] 3 20:40:18 Ulcer of toe 469164326 Active 2020 Not Available [facility] 3 20:40:18 Ulcer of toe 462590815 Completed 201710/01/2019 Not Available [facility] 3 01:18:02 Ulcer of toe 823744805 Active 2021 Not Available [facility] 3 20:40:18 Type 2 diabetes mellitus without complicat ion 329360233 Active 2021 Not Available [facility] 3 20:40:18 Sinusitis 62917030 Active 2021 Not Available [facility] 3 20:40:18 Disorder of eye 361405018 Active 2017 Not Available [facility] 3 20:40:18 Arthritis 8711198 Active 2017 Not Available [facility] 3 20:40:18 Hypertens anu disorder 00589300 Active 2017 Not Available [facility] 3 20:40:18 Neuropath y 214147899 Active 2021 Not Available [facility] 3 20:40:18 Vertigo 236265195 Active 2021 Not Available [facility] 3 20:40:18 Periphera l arterial occlusive disease 642288107 Active 2017 Not Available [facility] 3 20:40:18 Onychomyc osis of toenails 565548603 Active 2020 Not Available [facility] 3 20:40:18 Lymphedem a of lower extremity 184984755 Active 2017 Not Available [facility] 3 20:40:18 Dizziness 387183276 Active 2017 Not Available [facility] 3 20:40:18 Obesity 355648312 Active 2017 Not Available [facility] 3 20:40:19 Diabetic periphera l neuropath y 721579379 Active 2017 Not Available [facility] 3 20:40:19 Avulsion of toenail 800318851 Completed 201810/01/2019 Not Available [facility] 3 01:18:03 Pressure ulcer of toe of left foot stage 1 Active 2020 Not Available [facility] 3 20:40:19 Pain of right knee joint 76697236792 4100 Active 2021 Not Available [facility] 3 20:40:19 Foot pain 88334095 Completed 201810/01/2019 Not Available [facility] 3 01:18:04 Coronary arteriosc lerosis 26912668 Active 2017 Not Available [facility] 3 20:40:19 Blister of toe without infection 76637330 Completed 201810/01/2019 Not Available [facility] 3 01:18:04 Hyperlipi demia 20610177 Active 2017 Not Available [facility] 3 20:40:19 Essential hypertens ion 54793884 Active 2017 Not Available [facility] 3 20:40:19 Diabetes mellitus 88149123 Active 2017 Not Available [facility] 3 20:40:19 Sleep apnea 13662094 Active 2017 Not Available [facility] 3 20:40:19 Sebaceous cyst of skin 545246102 Active 2021 Not Available [facility] 3 20:40:19 Leukopeni a 53122205 Active 2022 Not Available [facility] 3 20:40:19 Cardiomyo betzy 64115190 Active 2021 Not Available [facility] 3 20:40:19 Disorder of intestine 52321319 Active 2017 Not Available [facility] 3 20:40:19 Dystrophi simon mccabe 92544561 Active 2021 Howard Hauser DPM [address], [address], [place], [address] , [employer] 5 13:50:24 Dystrophi simon santouium 74828318 Completed 201810/14/2020 Howard Hauser DPM [address], [address], [place], [address] , [employer] 5 13:50:24 Type 2 diabetes mellitus 09338658 Active 2022 Not Available [facility] 3 20:40:19 Open wound of toe 439111770 Active 2022 Not Available [facility] 3 20:40:18 Hammer toe 907417131 Active 2022 Not Available [facility] 3 20:40:18 Skin ulcer of toe due to diabetes mellitus type 2 76088554498 957152 Active 2022 Not Available [facility] 3 20:40:18 Open wound of toe 628954370 Active 2023 Howard Hauser DPM [address], [address], [place], [address] , [employer] 4 09:32:41 Acquired right mallet toe 81256581103 313747 Active 2023 Howard Hauser DPM [address], [place], [address] , [employer] 4 13:02:46 Notes:Some problems listed i n Documents: #[id number], #[id number] could not be added to this patient's chart. Please review these documents and add these problems to the patient's chart manually as needed. Problem Notes None recorded. Procedures Surgical History Date Name Laterality Status Provider Name and Address Organization Details Recorded Time 025 Nail Debridement completed [address], [place], [address], [email or web address] [facility] [email or web address] 02/10/2025 13:47:29 025 Callus Debridement 2-[address], [place], [address], [email or web address] [facility] [email or web address] 02/10/2025 13:47:18 025 Nail Debridement completed T[address], [address], [place], [address], [email or web address] [facility] [email or web address] 11/06/2024 08:37:15 025 Callus Debridement 2-4 completed T[address], [address], [place], [address], [email or web address] [facility] [email or web address] 11/06/2024 08:37:19 024 Nail Debridement completed TAMAR [address], [address], [place], [address], [email or web address] 07/29/2024 14:30:29 024 Blank Procedure Note completed T[address], [address], [place], [address], [email or web address] [facility] [email or web address] 07/29/2024 14:34:38 024 Callus Debridement, One completed TAMAR [address], [address], [place], [address], [email or web address] [facility] [email or web address] 07/29/2024 14:31:14 024 Nail Debridement completed T[address], [address], [place], [address], [facility] [employer] [facility] [employer] 05/07/2024 09:19:46 024 Callus Debridement, One completed TAMAR [address], [address], [place], [address], [facility] 05/07/2024 09:18:04 024 Flexor Tenotomy completed Howard Hauser DPM [address], [address], [place], [address], [facility] [employer] [facility] 02/12/2024 13:58:36 024 Callus Debridement 2-4 completed Howard Hauser DPM [address], [address], [place], [address], [facility] [employer] [facility] 02/12/2024 14:01:29 024 Nail Debridement completed Howard Hauser DPM [address], [address], [place], [address], [facility] [employer] [facility] 11/15/2023 09:32:26 024 Wound Care-Podiatry completed Howard Hauser DPM [address], [address], [place], [address], [facility] [employer] [facility] 11/13/2023 14:07:43 023 Nail Debridement completed Howard Hauser DPM [address], [address], [place], [address], [facility] [employer] [facility] 08/07/2023 14:55:36 023 Wound Care-Podiatry completed Howard Hauser DPM [address], [address], [place], [address], [facility] [employer] [facility] 08/07/2023 14:55:22 023 Callus Debridement, One completed Howard Hauser DPM [address], [address], [place], [address], [facility] [employer] [facility] 08/07/2023 14:55:59 023 Nail Debridement completed Howard Hauser DPM [address], [address], [place], [address], [facility] [employer] [facility] 04/26/2023 16:01:34 023 Wound Care-Podiatry completed Howard Hauser DPM [address], [address], [place], [address], [facility] [employer] [facility] [place] [facility] 04/26/2023 16:01:13 023 Callus Debridement, One completed Howard Hauser DPM [address], [address], [place], [address], [facility] [place] [facility] 04/26/2023 16:02:47 023 Nail Debridement completed Howard Hauser DPM [address], [address], [place], [address], [facility] [employer] [facility] [place] [facility] 01/25/2023 12:33:07 023 Callus Debridement 2-4 completed Howard Hauser DPM [address], [address], [place], [address], [facility] [place] [facility] 01/25/2023 12:32:58 019 Most Recent Bone Density completed Not Available [facility] 11/22/2022 01:12:00 016 Date of Last Colonoscopy completed Not Available [facility] 11/22/2022 01:12:00 016 Colon ca scrn not hi rsk ind completed Not Available [facility] 11/22/2022 01:12:02 Hysterectomy completed Not Available [facility] 11/22/2022 01:12:02 Gastrointestinal Surgery completed Not Available [facility] 11/22/2022 01:12:02 Tonsillectomy completed Not Available [facility] 11/22/2022 01:12:02 Appendectomy completed Not Available [facility] 11/22/2022 01:12:02 Imaging Results None recorded. Procedure Notes None recorded. Medical Equipment None Reported. Allergies Allergen ID Allergen Name Allergen Category Reaction Reaction Severity Criticality Documentation Date Start Date Code Code System Note Provider Name and Address Organization Details Recorded Time 2331 Ultram medicatio n dizziness nausea Not available Not available Not available 11/22/2022 19938 6 RxNorm Not Available [facility] 01:25:00 2332 pantopraz ole medicatio n diarrhea severe Not available 11/22/2022 69831 RxNorm Not Available [facility] 3 01:25:00 2333 nickel environme nt rash Not available Not available 11/22/2022 56530 29 RxNorm Not Available [facility] 3 01:25:00 2334 mold extract environme nt other Not available Not available 11/22/2022 87675 8 RxNorm sinus drain age Not Available [facility] 3 01:25:01 2335 Levaquin medicatio n rash Not available Not available 11/22/2022 21228 2 RxNorm Not Available [facility] 3 01:25:01 2336 kiwi fruit extract food edema Not available Not available 11/22/2022 46300 01 RxNorm Not Available [facility] 3 01:25:01 2337 hydrocodo ne Not available vomiting Not available Not available 11/22/2022 5489 RxNorm high dose Not Available [facility] 3 01:25:01 2338 hydrochlo rothiazid e medicatio n hives Not available Not available 11/22/2022 5487 RxNorm Not Available [facility] 3 01:25:01 2339 Gyne-Lotr imin medicatio n hives Not available Not available 11/22/2022 51184 5 RxNorm Not Available [facility] 3 01:25:01 2340 gabapenti n medicatio n dizziness Not available Not available 11/22/2022 30007 RxNorm Not Available [facility] 3 01:25:01 2341 Dilaudid medicatio n dizziness Not available Not available 11/22/2022 57396 3 RxNorm Not Available [facility] 3 01:25:02 2342 Acetamino phen / Propoxyph milena medicatio n respirato ry distress Not available Not available 11/22/2022 00940 RxNorm Not Available [facility] 3 01:25:02 2343 cyclobenz aprine medicatio n dizziness Not available Not available 11/22/2022 07387 RxNorm Not Available [facility] 3 01:25:02 2344 Celebrex medicatio n respirato ry distress Not available Not available 11/22/2022 66414 7 RxNorm Not Available [facility] 3 01:25:02 2345 cefdinir medicatio n Not available Not available Not available 11/22/20222018 76615 RxNorm Not Available [facility] 3 01:25:02 2346 Azopt medicatio n eye redness Not available Not available 11/22/2022 24970 2 RxNorm Not Available [facility] 3 01:25:02 2347 azithromy luz medicatio n diarrhea severe Not available 11/22/2022 87057 RxNorm Not Available [facility] 3 01:25:02 2348 Augmentin medicatio n diarrhea vomiting severe moderate Not available 11/22/20222021 80242 2 RxNorm Not Available [facility] 3 01:25:03 2349 Altace medicatio n hives Not available Not available 11/22/2022 22995 8 RxNorm Not Available [facility] 3 01:25:03 2350 Alphagan medicatio n eye redness Not available Not available 11/22/2022 73349 8 RxNorm Not Available [facility] 3 01:25:03 2351 adhesive tape environme nt,medica tion hives Not available Not available 11/22/2022 55131 UNK Not Available [facility] 3 01:25:03 Medications Name Sig Start Date Stop Date Status Note LastModified by Organization Details LastModified Time Prescriptio n - Change active Not Available Not Available N ot Available insulin syringe/u-1 00/1ml/31g x 5/1 6 31g x 5/16 1 ml misc 02/11 completed Not Available Not Available Not Available furosemide 40 mg tablet TAKE 1 TABLET BY MOUTH EVERY DAY active Not Available Not Available No t Available latanoprost 0.005 % eye drops INSTILL 1 DROP INTO EACH EYE EVERY NIGHT AT BEDTIME active Not Available Not Available No t Available atorvastati n 40 mg tablet TAKE 1 TABLET BY MOUTH EVERY DAY IN THE EVENING active Not Available Not Available No t Available terbinafine HCl 1 % topical cream APPLY TO THE AFFECTED AND SURROUNDI NG AREAS OF SKIN BY TOPICAL ROUTE ONCE DAILY 02/11 completed Not Available Not Available Not Available metformin 500 mg tablet TK 1 T PO BID 07/22 completed Not Available Not Available Not Available fluticasone 250 mcg-salmete rol 50 mcg/dose blistr powdr for inhalation INHALE 1 PUFF BY MOUTH TWICE DAILY active Not Available Not Available No t Available carvedilol 6.25 mg tablet TAKE 1 TABLET BY MOUTH DAILY active Not Available Not Available No t Available doxycycline hyclate 100 mg capsule TAKE 1 CAPSULE BY MOUTH TWICE DAILY FOR 10 DAYS active Not Available Not Available No t Available desoximetas one 0.25 % topical cream APPLY A THIN LAYER TO THE AFFECTED AREA(S) BY TOPICAL ROUTE 2 TIMES PER DAY ; RUB IN GENTLY AND COMPLETEL Y 02/15 completed Not Available Not Available Not Available clindamycin HCl 300 mg capsule Take 1 capsule every 6 hours by oral route as directed for 7 days. active Not Available Not Available No t Available albuterol sulfate 2.5 mg/3 mL (0.083 %) solution for nebulizatio n Inhale 1 mL every 6 hours by inhalatio n route as needed for 90 days. active Not Available Not Available No t Available hydrocodone 5 mg-acetamin ophen 325 mg tablet TK 1 T PO BID 03/20 completed Not Available Not Available Not Available prednisone 20 mg tablet Take 2 tablets every day by oral route for 5 days. active Not Available Not Available No t Available Accu-Chek Softclix Lancets U 6 TIMES A DAY active Not Available Not Available No t Available meclizine 12.5 mg tablet TAKE 1 TABLET BY MOUTH FOUR TIMES DAILY NEEDED active Not Available Not Available No t Available potassium chloride ER 10 mEq tablet,exte nded release TK 1 T PO QD 05/21 completed Not Available Not Available Not Available acetaminoph en 300 mg-codeine 30 mg tablet TAKE 1 TABLET BY MOUTH EVERY 6 HOURS NEEDED FOR SEVERE PAIN 02/15 completed Not Available Not Available Not Available acetaminoph en 500 mg tablet Take 2 tablets 3 times a day by oral route. 04/27 completed Not Available Not Available Not Available triamcinolo ne acetonide 0.1 % topical cream APPLY TOPICALLY TO RASH DAILY active Not Available Not Available No t Available amoxicillin 500 mg tablet 08/26 completed Not Available Not Available Not Available glimepiride 1 mg tablet TAKE 1/2 TABLET BY MOUTH EVERY DAY IN THE MORNING active Not Available Not Available No t Available cefadroxil 500 mg capsule TK ONE C PO BID 03/20 completed Not Available Not Available Not Available OneTouch Ultra Test strips USE TO TEST BLOOD SUGAR FOUR TIMES DAILY active Not Available Not Available No t Available cephalexin 500 mg capsule TK ONE C PO BID 03/20 completed Not Available Not Available Not Available Humulin R Regular U-100 Insulin 100 unit/mL injection solution ADMINISTE R 15 UNITS UNDER THE SKIN DAILY active Not Available Not Available No t Available pantoprazol e 40 mg tablet,laine yed release TAKE 1 TABLET BY MOUTH EVERY DAY 05/17 completed Not Available Not Available Not Available erythromyci n 5 mg/gram (0.5 %) eye ointment APPLY SMALL AMOUNT TO SURGICAL SITE THREE TIMES DAILY BEGINNING AFTER SURGERY 02/11 completed Not Available Not Available Not Available docusate sodium 100 mg capsule Take 2 capsules twice a day by oral route as needed. 2017 active Not Available Not Available Not Avai lable Advil 200 mg tablet Take 2 tablets every 6 hours by oral route. 04/27 completed Not Available Not Available Not Available omeprazole 20 mg capsule,del ayed release TAKE 1 CAPSULE BY MOUTH EVERY DAY active Not Available Not Available No t Available insulin syringe U-100 with needle 1 mL 31 gauge x 5/16 USE 6 TIMES PER DAY DIRECTED active Not Available Not Available No t Available montelukast 10 mg tablet TAKE 1 TABLET BY MOUTH DAILY active Not Available Not Available No t Available bisacodyl 5 mg tablet,laine yed release TAKE 6 TABLET BY MOUTH ONCE AT 8 AM ON 05/29 active Not Available Not Available No t Available lisinopril 5 mg tablet TAKE 1 TABLET BY MOUTH DAILY active Not Available Not Available No t Available mupirocin 2 % topical ointment APPLY A SMALL AMOUNT TO THE AFFECTED AREA ON TOE ULCERS THREE TIMES DAILY active Not Available Not Available No t Available azelastine 137 mcg (0.1 %) nasal spray [place] 2 sprays twice a day by intranasa l route for 30 days. active Not Available Not Available No t Available Aspir-81 mg tablet,laine yed release Take 1 tablet every day by oral route. 2017 active Not Available Not Available Not Avai lable insulin syringe U-100 with needle 1 mL 30 gauge x 7/16 U UTD 6 TIMES D 04/27 completed Not Available Not Available Not Available ondansetron 4 mg disintegrat ing tablet DISSOLVE 1 T ON TONGUE Q 8 H PRN 04/20 completed Not Available Not Available Not Available cefdinir 300 mg capsule Take 1 capsule twice a day by oral route for 7 days. active Not Available Not Available No t Available metformin ER 500 mg tablet,exte nded release 24 hr TK 1 T PO BID 03/18 completed Not Available Not Available Not Available acetaminoph en 500 mg capsule Take 2 capsules every 6 hours by oral route. 2021 active Not Available Not Available Not Avai lable doxycycline hyclate 100 mg tablet Take 1 tablet twice a day by oral route for 7 days. active Not Available Not Available No t Available gentamicin 0.1 % topical ointment APPLY A SMALL AMOUNT TO TOE ULCER THREE TIMES DAILY active Not Available Not Available No t Available amoxicillin 500 mg-potassiu m clavulanate 125 mg tablet TAKE 1 TABLET BY MOUTH EVERY 12 HOURS FOR 10 DAYS DIRECTED 10/19 completed Not Available Not Available Not Available Acetaminoph en W/Codeine 300 mg-30 mg tablet TAKE 1 TAB Q 8HRS PRN PAIN 02/15 completed Not Available Not Available Not Available Pneumovax-2 3 25 mcg/0.5 mL injection syringe active Not Available Not Available Not Available Alcohol Prep Pads USE 6 TIMES DAILY DIRECTED active Not Available Not Available No t Available Spiriva with HandiHaler 18 mcg and inhalation capsules INHALE THE CONTENTS OF 1 CAPSULE VIA INHALATIO N DEVICE EVERY DAY active Not Available Not Available No t Available Vesicare 10 mg tablet TK 1 T PO LATE DAY 03/20 completed Not Available Not Available Not Available ascorbic acid (vitamin C) 09/08 completed Not Available Not Available Not Available Vitamin C 2021 active Not Available Not Available Not Avai lable Tussin 10/23 completed Not Available Not Available Not Available nystatin 04/20 completed dupl Not Available Not Available Not Available Aspir-81 take 1 tab daily 02/19 completed Not Available Not Available Not Available Metamucil 2017 active Not Available Not Available Not Avai lable latanoprost 03/18 completed Not Available Not Available Not Available Proctozone- HC 09/08 completed Not Available Not Available Not Available multivitami n 2021 active Not Available Not Available Not Avai lable Levemir U-100 Insulin 100 unit/mL subcutaneou s solution INJECT SUBCUTANE OUS 100 UNITS EVERY MORNING AND 70 UNITS EVERY EVENING 02/11 completed Not Available Not Available Not Available BD Ultra-Fine Short Pen Needle 31 gauge x 02/06 USE TO INJECT INSULIN DAILY DIRECTED active Not Available Not Available No t Available CoQ-10 2021 active Not Available Not Available Not Avai lable Xyzal 5 mg tablet Take 1 tablet every day by oral route. 02/19 completed Not Available Not Available Not Available Voltaren 1 % topical gel APPLY 2 GRAM TO THE AFFECTED AREA(S) BY TOPICAL ROUTE 4 TIMES PER DAY 04/20 completed Not Available Not Available Not Available Gavilyte-C 240 gram-22.72 gram-6.72 gram-5.84 gram oral solution MIX AND DRINK 1/2 BY MOUTH 5 PM ON 05/29 AND 1/2 AT 5 AM ON 05/30 active Not Available Not Available No t Available Prevnar 13 (PF) 0.5 mL intramuscul ar syringe ADM 0.5ML IM UTD 03/20 completed Not Available Not Available Not Available alpha lipoic acid 600 mg capsule Take 1 capsule every day by oral route. active Not Available Not Available No t Available Vitamin D3 50 mcg (2,000 unit) capsule Take 1 capsule twice a day by oral route. 2017 active Not Available Not Available Not Avai lable Combivent Respimat 20 mcg-100 mcg/actuati on solution for inhalation INHALE 1 PUFF BY MOUTH FOUR TIMES DAILY NEEDED active Not Available Not Available No t Available Farxiga 5 mg tablet TAKE 1 TABLET BY MOUTH EVERY DAY active Not Available Not Available No t Available Tresiba FlexTouch U-100 insulin 100 unit/mL (3 mL) subcutaneou s pen ADMINISTE R 125 UNITS UNDER THE SKIN EVERY DAY active Not Available Not Available No t Available Fluzone High-Dose 8316-2090 (PF) 180 mcg/0.5 mL intramuscul ar syringe ADM 0.5ML IM UTD 03/20 completed Not Available Not Available Not Available Ozempic 0.25 mg or 0.5 mg (2 mg/1.5 mL) subcutaneou s pen injector INJECT 0.5 MG UNDER THE SKIN ONCE EVERY WEEK 05/16 completed Not Available Not Available Not Available OneTouch Ultra Blue Test Strip USE TO TEST BLOOD SUGAR FOUR TIMES DAILY active Not Available Not Available No t Available Wixela Inhub 05/16 completed Not Available Not Available Not Available Rocklatan 0.02 %-0.005 % eye drops INSTILL 1 DROP IN BOTH EYES AT BEDTIME FOR 30 TO 90 DAYS active Not Available Not Available No t Available BD Melani 2nd Gen Pen Needle 32 gauge x 5/32 USE DAILY active Not Available Not Available No t Available OneTouch Ultra2 Meter USE DIRECTED TO CHECK SUGAR THREE TIMES DAILY active Not Available Not Available No t Available OneTouch Delica Plus Lancet 33 gauge USE DIRECTED FOUR TIMES DAILY active Not Available Not Available No t Available OneTouch Delica Plus Lancet 30 gauge USE TO TEST BLOOD SUGAR FOUR TIMES DAILY 02/11 completed Not Available Not Available Not Available Flucelvax Quad (PF) 60 mcg (15 mcg x 4)/0.5 mL IM syringe active Not Available Not Available N ot Available Flucelvax Quad (PF) 60 mcg (15 mcg x 4)/0.5 mL IM syringe ADM 0.5ML IM UTD active Not Available Not Available No t Available Ozempic 1 mg/dose (4 mg/3 mL) subcutaneou s pen injector INJECT 1MG UNDER THE SKIN WEEKLY active Not Available Not Available No t Available [facility] COVID-19 Antigen Rapid Home Test kit DIRECTED 05/16 completed Not Available Not Available Not Available Ozempic 0.25 mg or 0.5 mg (2 mg/3 mL) subcutaneou s pen injector INJECT 0.5 MG UNDER THE SKIN EVERY WEEK 05/21 /2024 completed Not Available Not Available Not Available Vince 100,000 unit/gram topical powder APPLY TOPICALLY TO THE AFFECTED AREA TWICE DAILY active Not Available Not Available No t Available Vitals Date Recorded Body height Body mass index (BMI) Body weight Heart rate Respiratory rate Oxygen saturation Oxygen saturation in Arterial blood by Pulse oximetry Systolic And Diastolic Provider Name and Address Organization Details Last Updated DateTime 5 165.1 cm 35.3 kg/m2 38836.5 8 g 98 /min 14 /min 98 % 98 % 103/49 mm[Hg] Zarina Pena [facility] [employer] [facility] 5 14:33:06 Date Recorded Body height Body mass index (BMI) Body weight Provider Name and Address Organization Details Last Updated DateTime 02/10/2025 165.1 cm 35.3 kg/m2 60833.58 g NASIMA Mistry [facility] [employer] [facility] 02/10/2025 11:18:05 Date Recorded Heart rate Respiratory rate Oxygen saturation Oxygen saturation in Arterial blood by Pulse oximetry Systolic And Diastolic Provider Name and Address Organization Details Last Updated DateTime 5 86 /min 14 /min 98 % 98 % 106/57 mm[Hg] Zarina Pena [facility] [employer] [facility] 5 11:22:39 Date Recorded Body height Body mass index (BMI) Body weight Heart rate Respiratory rate Oxygen saturation Oxygen saturation in Arterial blood by Pulse oximetry Systolic And Diastolic Provider Name and Address Organization Details Last Updated DateTime 4 165.1 cm 35.3 kg/m2 06016.5 8 g 100 /min 14 /min 98 % 98 % 88/55 mm[Hg] Zarina Pena [facility] [employer] [facility] 4 11:31:10 Date Recorded Body height Body mass index (BMI) Body weight Heart rate Respiratory rate Body temperature Oxygen saturation Oxygen saturation in Arterial blood by Pulse oximetry Systolic And Diastolic Provider Name and Address Organization Details Last Updated DateTime 4 165.1 cm 35.3 kg/m2 91388.5 8 g 90 /min 18 /min 98.3 [degF] 98 % 98 % 140/80 mm[Hg] Ana Chang [facility] [employer] [facility] 4 17:15:47 Date Recorded Body height Body mass index (BMI) Body weight Heart rate Respiratory rate Oxygen saturation Oxygen saturation in Arterial blood by Pulse oximetry Systolic And Diastolic Provider Name and Address Organization Details Last Updated DateTime 4 165.1 cm 35.3 kg/m2 44775.5 8 g 68 /min 14 /min 98 % 98 % 107/63 mm[Hg] Zarina Pena [place] [facility] 4 12:45:57 Social History Question Answer Notes LastModified by Organizat ion Details LastModified Time Tobacco Smoking Status Never Smoker Not Available [employer] 11/22/2022 01:11:26 Do You Have An Advance Directive? Yes MIGRATION.[id number] Information not available 11/22/2022 Are You Blind Or Do You Have Difficulty Seeing? No MIGRATION.05323 04690 Information not available 11/22/2022 What Is Your Level Of Caffeine Consumption? None MIGRATION.97784 46195 Information not available 11/22/2022 How Much Tobacco Do You Chew? None MIGRATION.95464 37011 Information not available 11/22/2022 In The 14 Days Before Symptom Onset, Have You Had Close Contact With A Laboratory-confi rmed COVID-19 While That Case Was Ill? No MIGRATION.65335 [id number] Information not available 11/22/2022 In The 14 Days Before Symptom Onset, Have You Had Close Contact With A Person Who Is Under Investigation For COVID-19 While That Person Was Ill? No MIGRATION.91360 [id number] Information not available 11/22/2022 Are You Deaf Or Do You Have Serious Difficulty Hearing? No MIGRATION.30907 65653 Information not available 11/22/2022 What Type Of Diet Are You Following? REGULAR MIGRATION.74799 66233 Information not available 11/22/2022 Which Illicit Or Recreational Drugs Have You Used? None MIGRATION.56376 40334 Information not available 11/22/2022 What Is The Highest Grade Or Level Of School You Have Completed Or The Highest Degree You Have Received? [id number] MIGRATION.76316 30267 Information not available 11/22/2022 Have There Been Any Changes To Your Family Or Social Situation? No MIGRATION.97665 83048 Information not available 11/22/2022 What Is The Fluoride Status Of Your Home? Unknown MIGRATION.52111 57047 Information not available 11/22/2022 Are There Any Guns Present In Your Home? No MIGRATION.66570 01100 Information not available 11/22/2022 Do You Use Insect Repellent Routinely? No MIGRATION.25876 03490 Information not available 11/22/2022 Where Do You Live? [place]House MIGRATION.07529 23490 Information not available 11/22/2022 Do You Have A Medical Power Of Tailor Garment Fitter? Yes MIGRATION.61900 28474 Information not available 11/22/2022 What Was The Date Of Your Most Recent Tobacco Screening? 02/10/2025 Information not available 02/10/2025 Do You Have Any Pets? No MIGRATION.51286 88375 Information not available 11/22/2022 What Is Your Relationship Status? Single MIGRATION.30458 56480 Information not available 11/22/2022 Do You Use Your Seat Belt Or Car Seat Routinely? Yes MIGRATION.97855 09170 Information not available 11/22/2022 Do You Have Smoke And Carbon Monoxide Detectors In Your Home? Yes MIGRATION.96170 26193 Information not available 11/22/2022 Are You Passively Exposed To Smoke? No MIGRATION.08572 94566 Information not available 11/22/2022 Are There Any Smokers In Your House? No MIGRATION.59318 65902 Information not available 11/22/2022 How Much Tobacco Do You Smoke? No MIGRATION.73558 83155 Information not available 11/22/2022 What Types Of Sporting Activities Do You Participate In? None MIGRATION.40771 64041 Information not available 11/22/2022 Do You Use Sunscreen Routinely? Yes MIGRATION.23226 86955 Information not available 11/22/2022 Has Tobacco Cessation Counseling Been Provided? No Not Needed-ne daria Smoked MIGRATION.91593 85189 Information not available 11/22/2022 How Many Years Have You Smoked Tobacco? 0 MIGRATION.16554 84966 Information not available 11/22/2022 Have You Recently Traveled Abroad? No MIGRATION.33753 00050 Information not available 11/22/2022 Do You Have Difficulty Walking Or Climbing Stairs? Yes MIGRATION.98791 28991 Information not available 11/22/2022 Do You Have Any Dietary Restrictions? No MIGRATION.33634 73851 Information not available 11/22/2022 Sex: Female Functional Status Question Answer Note LastModified by Organizat ion Details LastModified Time Do you use any illicit or recreational drugs? No MIGRATION.28398 09770 Information not available 11/22/2022 Do you or have you ever used any other forms of tobacco or nicotine? No MIGRATION.11971 55034 Information not available 11/22/2022 What is your level of alcohol consumption? None MIGRATION.08974 77837 Information not available 11/22/2022 Do you or have you ever used smokeless tobacco? Never used smokeless tobacco MIGRATION.36245 32975 Information not available 11/22/2022 Do you have transportation difficulties? No MIGRATION.38625 13026 Information not available 11/22/2022 Are you able to walk? YESASSIST uses walker MIGRATION.10291 24746 Information not available 11/22/2022 Do you have difficulty doing errands alone? No MIGRATION.29215 42201 Information not available 11/22/2022 Are you able to care for yourself? Yes MIGRATION.32083 62681 Information not available 11/22/2022 What is your occupation? disabled MIGRATION.25991 82373 Information not available 11/22/2022 Do you have difficulty dressing or bathing? Yes MIGRATION.98191 06887 Information not available 11/22/2022 Do you or have you ever used e-cigarettes or vape? Never used electronic cigarettes MIGRATION.49151 42966 Information not available 11/22/2022 What is your exercise level? None MIGRATION.89127 12034 Information not available 11/22/2022 Mental Status Question Answer Note LastModified by Organizat ion Details LastModified Time Do you feel stressed (tense, restless, nervous, or anxious, or unable to sleep at night)? [id number] MIGRATION.[id number] 26 Information not available 11/22/2022 Do you have difficulty concentrating, remembering or making decisions? No MIGRATION.84447905 26 Information not available 11/22/2022 Family History Relationship Description Onset Age of this Age Resolved Age Notes LastModified by Organization Details LastModified Time Mother Chronic obstructive pulmonary disease MIGRATION.[id number] Not available 11/22/2022 01:12:07 Mother Hypertensive disorder MIGRATION.427 [id number] Not available 11/22/2022 01:12:07 Mother Glaucoma MIGRATION.347 [id number] Not available 11/22/2022 01:12:07 Mother Diabetes mellitus MIGRATION.499 [id number] Not available 11/22/2022 01:12:07 Father Diabetes mellitus MIGRATION.130 [id number] Not available 11/22/2022 01:12:07 Father Heart disease MIGRATION.851 [id number] Not available 11/22/2022 01:12:07 Maternal Grandfather Diabetes mellitus MIGRATION.943 [id number] Not available 11/22/2022 01:12:07 Paternal Grandmother Diabetes mellitus MIGRATION.258 [id number] Not available 11/22/2022 01:12:07 Sister Glaucoma MIGRATION.384 [id number] Not available 11/22/2022 01:12:07 Medical History Condition Response NERVE DISEASE Y BLINDNESS N RHEUMATIC FEVER N KIDNEY STONES N BLADDER PROBLEMS N OTHER # 1 Y POLIO N LUNG DISEASE/DISORDER N RADIATION / CHEMOTHERAPY N COPD Y Other # 2 N BLOOD DISEASES N SURGERY N EAR OR HEARING PROBLEMS N MUMPS N BOWEL PROBLEMS N DEPRESSION (INCLUDING POST ) N STROKE/TIA N ULCERS N BENIGN PROSTATIC HYPERPLASIA N MEASLES N MYOCARDIAL INFARCTION N OBESITY N GERD/NAUSEA N ANEURYSM Y URINARY/BLADDER/KIDNEY PROBLEMS N INPATIENT PSYCH CARE N CORONARY ARTERY DISEASE (CAD) Y ADDICTION CONCERNS N ENDOMETRIOSIS N Impotence N USE OF BLOOD THINNERS N SKIN PROBLEMS N GASTROINTESTINAL DISORDER N PERIPHERAL VASCULAR DISEASE N MUSCLE,JOINT OR BONE PROBLEMS N GASTROINTESTINAL BLEEDING N BLOOD CLOTS N ASTHMA N CATARACTS N ERECTILE DYSFUNCTION N VARICOSITIES N GI PROBLEMS N Low Testosterone N INFERTILITY N AIDS/HIV N LIVER DISEASE N MALE HYPOGONADISM N HYPERTENSION Y Deficiency N ANXIETY DISORDER N BLOOD TRANSFUSION N ANEMIA/BLOOD DISORDER N CHRONIC EAR INFECTIONS N BRONCHITIS N TUBERCULOSIS N GLAUCOMA N DIVERTICULITIS N SLEEP APNEA Y CHICKENPOX N INFECTIOUS DISEASE N HEART ARRHYTHMIA N PROSTATE N INSOMNIA N HIGH CHOLESTEROL / HYPERLIPIDEMIA Y HYPERTHYROIDISM N EYE PROBLEMS Y NEUROLOGICAL PROBLEMS N EDEMA N CHRONIC PAIN SYNDROME N HYPOTHYROIDISM N CAROTID BLOCKAGE N CONSTIPATION N BACK / NECK PROBLEMS N HAVE YOU BEEN HOSPITALIZED OR SEEN IN [facility] IN THE PAST YEAR ? N ATHEROSCLEROSIS N BREAST PROBLEMS N DIALYSIS N ECZEMA N OSTEOPOROSIS Y ARTHRITIS N NO SIGNIFICANT PAST MEDICAL HISTORY N APPENDICITIS N DIABETES, TYPE Y BAD TEETH N ENT N HEARTBURN / REFLUX N AUTISM SPECTRUM DISORDER (ASD) N HEPATITIS / LIVER DISEASE N PULMONARY DISEASE N GOUT N SLEEP DISORDER N ALZHEIMER'S DISEASE N Brain Problems N HERPES N DEMENTIA N HEADACHES/MIGRAINES N SEIZURES/EPILEPSY N VASCULAR DISEASE N PACEMAKER N Blood Disorder N DIZZINESS Y HEART DISEASE/HEART PROBLEMS N KIDNEY DISEASE N MULTIPLE SCLEROSIS N CARDIAC ARRHYTHMIA N CANCER: SPECIFY Y ANESTHESIA COMPLICATIONS N ATRIAL FIBRILLATION N Gall Stones N PULMONARY EMBOLISM N AUTOIMMUNE DISEASE N Gynecological History Statement/Question Response Date of Last Mammogram 10/16/2019 Date of Last Colonoscopy 06/12/2016 Most Recent Bone Density 01/22/2019 Obstetrics History GPAL:G 0 P 0 0 0 0 Immunizations Vaccine Type Date Status Note Provider Nam e and Address Organization Details Recorded Time COVID-19, mRNA, LNP-S, PF, 30 mcg/0.3 mL dose 1 completed Not Available [facility] 09/10/2023 20:40:19 COVID-19, mRNA, LNP-S, PF, 30 mcg/0.3 mL dose 1 completed Not Available [facility] 09/10/2023 20:40:19 Influenza, high-dose, trivalent, PF 0 completed Not Available [facility] 09/10/2023 20:40:20 Influenza, split virus, quadrivalent, preservative 9 completed Not Available [facility] 09/10/2023 20:40:19 pneumococcal polysaccharide PPV23 9 completed Not Available [facility] 09/10/2023 20:40:19 zoster recombinant 8 completed Not Available [facility] 09/10/2023 20:40:19 Pneumococcal conjugate PCV 13 7 completed Not Available [facility] 09/10/2023 20:40:20 tetanus toxoid, unspecified formulation 2 completed Not Available [facility] 09/10/2023 20:40:19 COVID-19, mRNA, LNP-S, PF, 30 mcg/0.3 mL dose 1 completed Not Available [facility] 09/10/2023 20:40:19 Influenza, high-dose, trivalent, PF 7 completed Not Available [facility] 09/10/2023 20:40:20 Influenza, high-dose, quadrivalent, PF 1 completed Not Available [facility] 09/10/2023 20:40:19 pneumococcal polysaccharide PPV23 9 completed Not Available [facility] 09/10/2023 20:40:19 Influenza, high-dose, trivalent, PF 8 completed Not Available [facility]/10[facility]23 20:40:20 Past Encounters Encounter ID Performer Location Encounter Start Date Encounter Closed Date Diagnosis/Indication Diagnosis SNOMED-CT Code Diagnosis ICD10 Code Diagnosis Note [id number] Sophie Green MD [facility] [address] [place] [address] [id number] 12/15/2020 00:00:00 12/19/2020 17:11:31 [id number] [facility] IGRATION_ DEFAULT_1 _1 , 12/31/2020 00:00:00 12/31/2020 11:51:02 [id number] Howard Hauser DPM [facility] [place] [address] [place] [id number] 01/13/2021 00:00:00 01/13/2021 13:46:08 [id number] Howard Hauser DPM [facility] [place] [address] [place] [address] [id number] 04/14/2021 00:00:00 04/14/2021 12:34:24 [id number] Sophie Green MD [facility] [address] [id number] 1 04/20/2021 00:00:00 04/24/2021 20:50:30 [id number] Howard aHuser DPM [facility] [place] [address] [place] [address] [id number] 07/14/2021 00:00:00 07/14/2021 11:18:00 [id number] Sophie Green MD [facility] [address] [id number] 1 07/20/2021 00:00:00 07/30/2021 21:00:17 [id number] Howard Hauser DPM [facility] [place] [address] [place] [address] [id number] 07/21/2021 00:00:00 07/21/2021 12:19:40 [id number] Howard Hauser DPM [facility] [place] [address] [place] [address] [id number] 0 07/28/2021 00:00:00 07/28/2021 17:45:52 [id number] [facility] [address] [place] [id number] 0 08/04/2021 00:00:00 08/08/2021 08:50:32 [id number] Howard Hauser DPM [facility] [place] [address] [place] [address] [id number] 0 08/23/2021 00:00:00 08/23/2021 16:13:47 [id number] Sophie Green MD [facility] [address] [place] [id number] 1 08/24/2021 00:00:00 09/11/2021 21:40:21 [id number] [facility] [address] [place] [address] [id number] 0 10/13/2021 00:00:00 10/13/2021 12:16:02 [id number] Sophie Green MD [facility] [address] [place] [address] [id number] 1 10/19/2021 00:00:00 10/19/2021 21:37:55 [id number] Howard Hauser DPM [facility] [place] [address] [place] [address] [id number] 10/20/2021 00:00:00 10/20/2021 17:21:07 [id number] Howard Hauser DPM [facility] [place] [address] [place] [address] [id number] 10/25/2021 00:00:00 11/03/2021 13:23:18 [id number] Howard Hauser DPM [facility] [place] [address] [place] [address] [id number] 0 11/07/2021 00:00:00 11/07/2021 12:20:14 [id number] Howard Hauser DPM [facility] [place] [address] [place] [address] [id number] 0 11/14/2021 00:00:00 11/14/2021 12:46:10 [id number] Howard Hauser DPM [facility] [place] [address] [place] [address] [id number] 0 11/21/2021 00:00:00 11/21/2021 11:46:51 [id number] Howard Hauser DPM [facility] [place] [address] [place] [address] [id number] 0 12/12/2021 00:00:00 12/12/2021 12:19:50 [id number] Howard Hauser DPM [facility] [place] [address] [place] [address] [id number] 0 12/26/2021 00:00:00 12/26/2021 15:17:08 [id number] Howard Hauser DPM [facility] [place] [address] [place] [phone] 0 01/02/2022 00:00:00 01/20/2022 14:32:58 [id number] Howard Hauser DPM [facility] [place] [address] [place] [phone] 0 01/09/2022 00:00:00 01/17/2022 22:52:13 [id number] Howard Hauser DPM [facility] [place] [address] [place] [phone] 0 01/16/2022 00:00:00 01/16/2022 21:54:23 [id number] Howard Hauser DPM [facility] [place] [address] [place] [phone] 0 01/26/2022 00:00:00 01/26/2022 15:19:09 [id number] Sophie Green MD [facility] [place] [address] [address] 1 02/15/2022 00:00:00 02/15/2022 22:14:08 [id number] Howard Hauser DPM [facility] [place] [address] [place] [phone] 0 04/27/2022 00:00:00 04/27/2022 12:46:18 [id number] Sophie Green MD [facility] [address] [address] 1 05/17/2022 00:00:00 05/18/2022 08:04:41 [id number] [facility] [address] [place] [phone] 0 08/02/2022 00:00:00 08/08/2022 11:09:55 [id number] Sophie Green MD [facility] [address] [address] 1 09/08/2022 00:00:00 09/08/2022 21:56:24 [id number] Howard Hauser DPM [facility] [place] [address] [place] [address]12[address]920 0 10/26/2022 00:00:00 10/26/2022 14:04:51 [id number] Sophie Green MD [facility] [address] [address] 1 01/12/2023 11:01:53 01/12/2023 11:54:06 Diabetes mellitus 31745717 E11.9 Essential hypertension 58113165 I10 Diabetic p eripheral neuropathy 382089540 E11.42 Hypercholesterolemia 136 33012 E78.00 Leukocytosis 593040565 D 72.829 [id number] Howard Hauser DPM [facility] [place] [address] [place] [phone] 0 01/25/2023 11:40:19 01/25/2023 12:35:41 Dystrophia unguium 18608484 L60.3 Nails 1 through 10 were debrided with sharp mechanical debridemen t without incident. Nails were debrided and greater than 50% length and thickness where needed. Hammer toe 352257698 M20 .41 Continue offloading with conservati ve therapy and diabetic shoe gear Diabetic p eripheral neuropathy 287938558 E11.42 Patient educated on neuropathy , diabetes, diabetic diet, and daily foot exams. Patient is to check feet daily for new wounds, blisters, redness to prevent infection and ulceration s to the feet. Patient will return to clinic in 3 months for diabetic foot workup. Callosity on toe 20100101 L84 Debrided without incidentCo ntinue offloading with diabetic shoes and insolesMon itor for wounds daily if presents to medical attention immediatel y Unable to cut own toenails 277528527 Z74.1 [id number] Howard Hauser DPM [facility] [place] [address] [phone] 0 04/26/2023 15:46:00 04/30/2023 11:04:57 Open wound of toe 349817023 S91.104A right 2nd toedebride d per notewound care reviewed with the patientFol low up in 1 week for wound care Dystrophia unguium 90134 009 L60.3 Nails 1 through 10 were debrided with sharp mechanical debridemen t without incident. Nails were debrided and greater than 50% length and thickness where needed. Neuropathy due to diabetes mellitus 825688557 E11.42 continue diabetic shoe gear and insoles Hammer toe 559558745 M20 .41 Continue offloading with conservati ve therapy and diabetic shoe gear Callosity on toe 20100101 L84 Debrided without incidentLe ft great toe and 2nd toeContinu e offloading with diabetic shoes and insolesMon itor for wounds daily if presents to medical attention immediatel y [id number] Howard Hauser DPM [facility] [place] [address] [place] [id number] 0 05/01/2023 10:18:50 05/01/2023 11:09:20 Open wound of toe 200954599 S91.104A right 2nd toe - improved by approximat bre 50%patient did not obtain x-rays recommend obtainingc ontinue daily wound care with gentamicin ointmentwo und care reviewed with the patientFol low up in 1 week for wound care Hammer toe 364410246 M20 .41 Continue offloading with conservati ve therapy and diabetic shoe gear [id number] Sophie Green MD [facility] Internal Med [facility] 2043 [facility], [address] [address] 1 05/16/2023 11:17:01 05/16/2023 12:47:45 Diabetes mellitus 82684127 E11.9 Asthma 566979169 J45.90 9 Essential hypertension 52069248 I10 Hypercholesterolemia 136 43862 E78.00 Neuropathy 993202475 G62 .9 [id number] Sophie Green MD [facility] Internal Med [facility] [address] [address] 1 07/09/2023 11:04:56 07/09/2023 13:10:54 Diabetes mellitus 23769733 E11.9 Coronary arteriosclerosis 15841355 I25.10 Pre-surger y evaluation 320824155 Z01.485 [id number] Howard Hauser DPM [facility] [place] [address] [place] [phone] 0 08/07/2023 12:09:07 08/07/2023 16:25:10 Diabetic peripheral neuropathy 774089960 E11.42 Patient educated on neuropathy , diabetes, diabetic diet, and daily foot exams. Patient is to check feet daily for new wounds, blisters, redness to prevent infection and ulceration s to the feet. Patient will return to clinic in 3 months for diabetic foot workup. Dystrophia unguium 95476 009 L60.3 Nails 1 through 10 were debrided with sharp mechanical debridemen t without incident. Nails were debrided and greater than 50% length and thickness where needed. Skin ulcer of toe due to diabetes mellitus type 2 [id number] 6624701 E11.621 right 2nd toedebride d without incidentco ntinue offloading daily wound care to prevent infectionf ollow-up 2 weeks if not healed [id number] Sophie Green MD [facility] Internal Med [facility] 2043 [facility], [address] [address] 1 09/12/2023 11:07:05 09/12/2023 12:41:29 Diabetes mellitus 91985017 E11.9 Neuropathy due to diabetes mellitus 090275695 E11.42 Coronary arteriosclerosis 69412266 I25.10 Essential hypertension 50316411 I10 Hyperlipidemia 22371216 E78.5 [id number] Howard Hauser DPM [facility] [place] [address] [phone] 0 11/13/2023 12:12:37 11/15/2023 09:40:56 Diabetic peripheral neuropathy 439184392 E11.42 Patient educated on neuropathy , diabetes, diabetic diet, and daily foot exams. Patient is to check feet daily for new wounds, blisters, redness to prevent infection and ulceration s to the feet. Patient will return to clinic in 3 months for diabetic foot workup. Dystrophia unguium 80095 009 L60.3 Nails 1 through 10 were debrided with sharp mechanical debridemen t without incident. Nails were debrided and greater than 50% length and thickness where needed. Open wound of toe 164750 002 S91.104A right 2nd toe - improved by approximat bre 50%patient did not obtain x-rays recommend obtainingc ontinue daily wound care with gentamicin ointmentwo und care reviewed with the patientFol low up in 1 week for wound care [id number] Howard Hauser DPM [facility] [place] [address] [place] [address] [phone] 0 02/12/2024 12:31:51 02/12/2024 14:14:07 Acquired right mallet toe 0608893418 8705355 M20.5X1 right secondflex or tenotomy today, right second toedressin gs reviewedre turn in 10 days for follow up Ulcer of toe 192269477 L 97.509 right 2nd toewound debrided without incidentda prosper wound care with betadine wet to dry dressingso ffloading all timesfollo w-up in 1-2 weeks Dystrophia unguium 85360 009 L60.3 Nails 1 through 10 were debrided with sharp mechanical debridemen t without incident. Nails were debrided and greater than 50% length and thickness where needed. Callosity on toe 20100101 L84 Debrided without incidentbi lateral 2nd toeContinu e offloading with diabetic shoes and insolesMon itor for wounds daily if presents to medical attention immediatel y Neuropathy due to diabetes mellitus 679026511 E11.42 continue diabetic shoe gear and insolescon tinue diabetes management per PCP recommenda tions [id number] Howard Hauser DPM [facility] [place] [address] [address] 0 02/21/2024 11:25:46 02/21/2024 11:53:53 Skin ulcer of toe due to diabetes mellitus type 2 [id number] 1126652 E11.621 right 2nd toeHealedf ollow-up 3 months Postoperative care 93497 9007 Z48.89 follow-up flexor tenotomy right 2nd toeplantar loading rectus 2nd toe, rightincis ion area healedcont inue diabetic shoes and insoles [id number] Howard Hauser DPM [facility] [place] [address] [address] 0 05/06/2024 17:08:48 05/21/2024 14:10:32 Diabetes mellitus 75949905 E11.9 Continue diabetic control per PCP recommenda tion Neuropathy due to diabetes mellitus 970536939 E11.42 continue diabetic shoe gear and insolescon tinue diabetes management per PCP recommenda tions Callosity on toe 20100101 L84 Debrided without incidentri ght 2nd toeContinu e offloading with diabetic shoes and insolesMon itor for wounds daily if presents to medical attention immediatel y Dystrophia unguium 02718 009 L60.3 Nails 1 through 10 were debrided with sharp mechanical debridemen t without incident. Nails were debrided and greater than 50% length and thickness where needed. [id number] Howard Hauser DPM [facility] [place] [address] [address] 0 07/29/2024 12:25:01 09/19/2024 11:20:22 Diabetes mellitus 76418675 E11.9 Continue diabetic control per PCP recommenda tion Neuropathy due to diabetes mellitus 849556407 E11.42 continue diabetic shoe gear and insolescon tinue diabetes management per PCP recommenda tions Callosity on toe 20100101 L84 Debrided without incidentri ght 2nd toeContinu e offloading with diabetic shoes and insolesMon itor for wounds daily if presents to medical attention immediatel y Acquired r ight mallet toe [id number] 2595089 M20.5X1 right secondrepe at flexor tenotomy today, right second toedressin gs reviewedfo llow up as needed [id number] Howard Hauser DPM [facility] [address] [place] [address] 11/05/2024 14:13:15 11/05/2024 14:52:13 Diabetes mellitus 32511835 E11.9 Continue diabetic control per PCP recommenda tion Neuropathy due to diabetes mellitus 674239029 E11.42 continue diabetic shoe gear and insolescon tinue diabetes management per PCP recommenda tions Callosity on toe 20100101 L84 Debrided without incidentCo ntinue offloading with diabetic shoes and insolesMon itor for wounds daily if presents to medical attention immediatel y Dystrophia unguium 63870 009 L60.3 Nails 1 through 10 were debrided with sharp mechanical debridemen t without incident. Nails were debrided and greater than 50% length and thickness where needed. [id number] Howard Hauser DPM [facility] [place] [address] [facility] [address] [place] [address] 02/10/2025 11:15:12 02/12/2025 16:24:14 History of diabetic foot ulcer 1200129282 0733950 Z86.31 Diabetes mellitus 624679 09 E11.9 Continue diabetic control per PCP recommenda tion Callosity on toe 20100101 L84 Debrided without incidentCo ntinue offloading with diabetic shoes and insolesMon itor for wounds daily if presents to medical attention immediatel y Hammer toe 077108247 M20 .41 M20.42 Continue offloading with conservati ve therapy and diabetic shoe gear Dystrophia unguium 96352 009 L60.3 Nails 1 through 10 were debrided with sharp mechanical debridemen t without incident. Nails were debrided and greater than 50% length and thickness where needed. Health Concerns Section Related Observation LastModified by Organization Detai ls LastModified Time None Recorded Concern Status LastModified by Organization Details LastModified Time None Recorded Advance Directives Directive Y: Payers Encounter Date Sequence Insurance Name Policy Number Policy Jones Covered Member ID Jones Member ID Guarantor Name 02/21/2024 1 [facility] (MEDICARE REPLACEMENT/A DVANTAGE - PPO) [id number] Jessieyas Macdonald [id number] Jessie J Torres 02/21/2024 2 [place] Jessieyas Macdonald [id number] Jessie Deanne Macdonald 05/06/2024 1 [facility] (MEDICARE REPLACEMENT/A DVANTAGE - PPO) [id number] Jessieyas Macdonald [id number] Jessieyas Macdonald 05/06/2024 2 [place] Jessieyas Macdonald [id number] Jessie J Torres 07/29/2024 1 [facility] (MEDICARE REPLACEMENT/A DVANTAGE - PPO) [id number] Jessieyas Macdonald [id number] Jessie J Torres 07/29/2024 2 [place] Jessieyas Macdonald [id number] Jessie J Torres 11/05/2024 1 [facility] (MEDICARE REPLACEMENT/A DVANTAGE - PPO) [id number] Jessieyas Macdonald [id number] Jessie Deanne Macdonald 11/05/2024 2 [place] Jessieyas Macdonald [id number] Jessie J Torres 02/10/2025 1 [facility] (MEDICARE REPLACEMENT/A DVANTAGE - PPO) [id number] Jessieyas Macdonald [id number] Jessie J Torres 02/10/2025 2 [place] Jessie Macdonald [id number] Jessie Macdonald Notes Date Note Type Note Provider Name and Address Organization Details Recorded Time 02/21/2024 text/html . Patient is a 73-year-old female who returns for follow-up on flexor tenotomy of the 2nd toe right foot. Patient has done very well she is healed all wounds to the toe. Patient has no open infection and has a stable rectus toe with plantar loading of the foot. Patient denies any other complaints. Howard Hauser DPM [address], [place], [address], [employer] 02/21/2024 11:50:16 05/06/2024 text/html Patient is a 73-year-old female diabetic with neuropathy who returns for foot care. Patient has a callus to the distal 2nd toe right foot. Patient denies any open wounds or infection she requests her nails be cut as they are long. Patient denies any other complaints. Howard Hauser DPM [address], [place], [address], [employer] 05/07/2024 09:21:07 07/29/2024 text/html . Patient is a 73-year-old diabetic female with neuropathy who returns for diabetic foot care she states she has pain to the distal left 2nd toe due to a mallet toe deformity. Patient states that she continues have pain to this toe she has a painful callus to the area but denies any open wounds. Patient states her nails are also long would like to have them cut. Patient states that she continues have numbness and tingling of all of her toes and feet. Patient denies any other complaints. Howard Hauser DPM [address], [place], [address], [employer] 07/29/2024 14:36:11 11/05/2024 text/html . Patient is a 73-year-old female diabetic shoe returns the office for routine diabetic foot care she states overall she is doing well she has minor callusing secondary to hammertoe deformities and elongated toenails but denies any open wounds. Patient denies any other complaints. Howard Hauser DPM [address], [place], [address], [employer] 11/06/2024 08:42:53 02/10/2025 text/html . Patient is 74-year-old female diabetic who returns for diabetic foot care overall she is doing well she continues have numbness and tingling she has mild hammertoes which she developed some mild callusing she denies any further wounds to the toes post surgery. Patient still has mild deformities she was urged to utilize crest pads but she does not. Patient does wear diabetic shoe gear. Patient denies any other complaints and would like her nails cut. Howard Hauser, TAMAR [address] [facility], [facility] [address], [place], [address], [place] [facility] 02/10/2025 13:51:32 OBGyn Episode No OBEpisode recorded.
--- OUTSIDE RECORDS SUMMARY | 2025-02-17 11:29 | XMS_ITS | Clinical Summary ---
Author Organization [facility] Clarita Ashton Address [address] [address] Care Team Providers Care Forestry Faculty Member Name Role Phone Ren Green MD Primary Care Provider [phone] Allergies Active Allergy Reactions Criticality Noted Date Comments Adhesive Hives,Itching High 03/23/2016 Azithromycin Diarrhea,Other (See Comments) High 03/23/2016 Reaction: Diarrhea, Brimonidine Other (See Comments) Low 03/23/2016 RED EYE RED EYE Reaction: Other Reaction: Other, Brinzolamide Other (See Comments),Itching Low 03/23/2016 RED EYES RED EYES Celecoxib Anaphylaxis,Shortn ess of Breath/Wheezing High 11/23/2015 Reaction: Short of breath, Clotrimazole Hives,Rash High 03/23/2016 Reaction: Other Cyclobenzaprine Dizziness,Nausea and Vomiting,Other (See Comments) Low 03/23/2016 DIZZINESS,DROZZI NESS DIZZINESS,DROZZI NESS Reaction: Dizziness, Drowsiness, Nausea, , Reaction: Drowsiness, Dizziness, Nausea, Gabapentin Dizziness,Other (See Comments) Low 11/23/2015 DIZZINESS,DROZZI BASSEM, HOT AND CLAMMY DIZZINESS,DROZZI BASSEM, HOT AND CLAMMY Reaction: Dizziness, Drowsiness, Vomiting, Hydrochlorothiazide Hives High 11/23/2015 Reaction: Hives, Hydrocodone Nausea and Vomiting Low 11/09/2022 Reaction: Nausea, Vomiting, Hydrocodone-Acetaminophen Nausea and Vomiting,Hives High 03/23/2016 Hydromorphone Dizziness,Nausea and Vomiting,Other (See Comments) Low 03/23/2016 DIZZINESS, HOT&CLAMMY, DROZZINESS DIZZINESS, HOT&CLAMMY, DROZZINESS Reaction: Drowsiness, Dizziness, Nausea, Levofloxacin Rash Low 11/23/2015 Reaction: Rash, Mold Shortness of Breath/Wheezing High 11/09/2022 Propoxyphene N-Acetaminophen Anaphylaxis ,Shortn ess of Breath/Wheezing High 11/09/2022 Ramipril Hives High 03/23/2016 Tramadol Dizziness,Nausea and Vomiting,Other (See Comments) Low 03/23/2016 DIZZINESS, DROZZINESS DIZZINESS, DROZZINESS Reaction: Dizziness, Drowsiness, Nausea, Medications acetaminophen 325 mg Capsule 500mg PRN Activ e albuterol (PROVENTIL,DANIAL MARCOS) 2.5 mg /3 mL (0.083 %) Solution for Nebulization albuterol sulfate 2.5 mg/3 mL (0.083 %) solution for nebulization Active BD Single Use Swabs Regular Pads, Medicated USE UP TO 6 TIMES DAILY TO STERILIZE AREA DIRECTED 2 Active aspirin (ECOTRIN EC) 81 mg Tablet, Delayed Release (E.C.) daily. Activ e atorvastatin (LIPITOR) 40 mg tablet TAKE 1 TABLET BY MOUTH EVERY DAY IN THE EVENING 3 Active Carboxymethylcel lulose Sodium 0.25 % solution lubricant eye drops Active carvediloL (COREG) 6.25 mg tablet Take 6.25 mg by mouth daily. 3 Active dapagliflozin (Farxiga) 5 mg Tablet Farxiga 5 mg tablet TAKE 1 TABLET BY MOUTH EVERY DAY Active docusate sodium (COLACE) 100 mg capsule every 12 hours Activ e fluticasone propion-salmeter oL (ADVAIR DISKUS,WIXELA INHUB) 250-50 mcg/dose disk inhaler fluticasone 250 mcg-salmeterol 50 mcg/dose blistr powdr for inhalation INHALE 1 PUFF BY MOUTH TWICE DAILY Active fluticasone propion-salmeter oL (ADVAIR DISKUS,WIXELA INHUB) 250-50 mcg/dose disk inhaler Take 1 Puff by inhalation 2 times daily. Active furosemide (LASIX) 40 mg tablet Take 40 mg by mouth daily. 2 Active glimepiride (AMARYL) 1 mg tablet Take 1 mg by mouth daily. 2 Active insulin detemir U-100 (Levemir U-100 Insulin) 100 unit/mL vial Levemir U-100 Insulin 100 unit/mL subcutaneous solution INJECT 100 UNITS UNDER THE SKIN EVERY MORNING THEN 70 UNITS EVERY EVENING Active insulin regular (HumuLIN R Regular U-100 Insuln) 100 unit/mL vial Humulin R Regular U-100 Insulin 100 unit/mL injection solution Active ipratropium-albu teroL (Combivent Respimat) 20-100 mcg/actuation Mist Combivent Respimat 20 mcg-100 mcg/actuation solution for inhalation INHALE 1 PUFF BY MOUTH FOUR TIMES DAILY NEEDED Active lancets Accu-Chek Softclix Lancets U 6 TIMES A DAY Active lisinopriL (PRINIVIL) 5 mg tablet Take 5 mg by mouth daily. 3 Active meclizine (ANTIVERT) 12.5 mg tablet meclizine 12.5 mg tablet TAKE 1 TABLET BY MOUTH FOUR TIMES DAILY NEEDED Active multivitamin (DAILY-FERNANDO) tablet daily. Active naproxen sodium (ALEVE) 220 mg Capsule 220MG PRN Active netarsudiL-latan oprost (Rocklatan) 0.02-0.005 % Drops Rocklatan 0.02 %-0.005 % eye drops INSTILL 1 DROP IN BOTH EYES AT BEDTIME Active omeprazole (PriLOSEC) 20 mg Capsule, Delayed Release(E.C.) Take 20 mg by mouth daily. 2 Active psyllium husk (METAMUCIL) 0.4 gram Capsule Metamucil Active semaglutide (Ozempic) 0.25 mg or 0.5 mg(2 mg/1.5 mL) Pen Injector Ozempic 0.25 mg or 0.5 mg (2 mg/1.5 mL) subcutaneous pen injector INJECT 0.5 MG UNDER THE SKIN ONCE EVERY WEEK Active tiotropium (Spiriva with HandiHaler) 18 mcg capsule Spiriva with HandiHaler 18 mcg and inhalation capsules INHALE THE CONTENTS OF 1 CAPSULE VIA INHALATION DEVICE EVERY DAY Active coenzyme Q10 30 mg Capsule co enzyme q 10 30 mg Active calcium as carbonate 215 mg calcium (500 mg) Tablet, Chewable unsure med dosage prn Active Cholecalciferol, Vitamin D3, 50 mcg (2,000 unit) Capsule every 12 hours Activ e glucose 4 gram Tablet, Chewable unsure med dosage 1 tab prn Active Active Problems No known active problems Encounters Date Type Department Care Team Description 11/21/2024 Orders Only [facility] Oncology and Hematology - [address] [place] [address] Alton Ocampo MD Leukocytosis, unspecified type (Primary Dx) from Last 3 Months Family History Medical History Relation Name Comments Heart Disease Brother 1 Diabetes Brother 2 Diabetes Brother 3 Diabetes Father Heart Disease Father Breast Cancer Mother Diabetes Mother Diabetes Sister 1 Diabetes Sister 2 Relation Name Status Comments Brother 1 Alive Brother 2 Alive Brother 3 Alive Father Mother Alive Sister 1 Alive Sister 2 Alive Social History Tobacco Use Types Packs/Day Years Used Date Smoking Tobacco: Never Smokeless Tobacco: Never Tobacco Cessation:Counseling Given: Not Answered Alcohol Use Standard Drinks/Week Comments Never 0 (1 standard drink = 0.6 oz pur e alcohol) Comments Unknown Sex and Gender Information Value Date Recorded Sex Assigned at Not on file Legal Sex Female 3:35 PM [facility] Gender Identity Not on file Sexual Orientation Not on file Last Filed Vital Signs Vital Sign Reading Time Taken Comments Blood Pressure 96/59 10/04/2023 11:23 AM [facility] Pulse 99 10/04/2023 11:23 AM [facility] Temperature 35.9 C (96.6 F) 10/04/2023 11:23 AM [facility] Respiratory Rate 10 10/04/2023 11:23 AM [facility] Oxygen Saturation 95% 10/04/2023 11:23 AM [facility] Inhaled Oxygen Concentration - - Weight 94.8 kg (209 lb) 10/04/2023 11:23 AM [facility] Height - - Body Mass Index - - Plan of Treatment Upcoming Encounters Date Type Department Care Team (Late st Contact Info) Description 03/13/2025 10:30 AM CDT Office Visit [facility] Oncology and Hematology - [address] [place] [phone] Alton Ocampo MD [address] [facility] [address] [place] [address] Health Maintenance Due Date Last Done Comments DIABETES ANNUAL FOOT EXAM 12/20/1969 DIABETES ANNUAL RETINAL EXAM 12/20/1969 DIABETES HBA1C Q 6 MONTHS 12/20/1969 DIABETES MICROALBUMIN ANNUAL SCREEN 12/20/1969 LDL CHOLESTEROL ANNUAL 12/20/1969 DTAP/TDAP/TD VACCINES (1 - Tdap) 12/20/1970 BREAST CANCER SCREENING 1991 FIT-DNA Q 3 years 12/20/1996 FIT/FOBT Q 1 year 12/20/1996 Flex Sig/CT Colonography Q 5 years 12/20/1996 RSV VACCINE (60+ or ) (1 - Risk 60-74 years 1-dose series) 2011 OSTEOPOROSIS SCREENING 12/20/2016 ZOSTER VACCINE (2 of 2) 11/05/2018 09/10/2018 INFLUENZA VACCINE (#1) 2024 1, 07/02/2020, 07/02/2020, Additional history exists COLORECTAL SCREENING 06/12/2026 06/12/2016 Colorectal Cancer Screening 06/12/2026 PNEUMOCOCCAL VACCINE 50+ YEARS Completed 1 , 01/15/2019, 07/19/2017, Additional history exists Insurance MEDICAID [place] Care Teams Forestry Faculty Member Relationship Specialty Start Date End Date Ren Green MD [address] [place] [phone] PCP - General Internal Medicine 11/09/22
--- OUTSIDE RECORDS SUMMARY | 2025-02-17 11:30 | XMS_ITS | Continuity of Care Document ---
Author Organization [facility] Address [address] [place] [address] Phone Care Team Providers Care Lieutenant Colonel Name Role Phone Kim Trinidad Unavailable Unavailable Procedures Procedure Date Office/outpatient Visit, Est Visual Field Examination(s) Office/outpatient Visit, Est Office/outpatient Visit, Est Visual Field Examination(s) Eye Exam Established Pt Office/outpatient Visit, Est Office/outpatient Visit, Est Visual Field Examination(s) Office/outpatient Visit, Est Optic Nerve Head Eval Office/outpatient Visit, Est Fundus Photography W/ Report Optic Nerve Head Eval Visual Functional Status Assessed Visual Field Examination-Professional Ma Visual Field Examination(s) BF Plastic Sphcyl [place] To +/-4d .12-2d Frames Deluxe Tax - Medical Refraction Eye Exam & Treatment Special Reports Or Forms Advance Directives Directive Yes / No Effective Date File Name No Information Encounters Encounter Description Practice Location Reason(s) For Visit Diagnoses Date Provider Providers Copied on Encounter Office[facility]outpat ient Visit, [facility], [id number] [place] [address] [address], [place], [place], [id number], [place] tel:[phone] [facility] No Information 0 Kim Shaikh [address] [facility] , [address], [place], [place], [facility], [place]. tel:[phone] [facility], [address] [place] [address] [address], [place], [place], [id number], tel:[phone] [facility] No Information 0 Kim Shaikh [address] , [address], [place], [place], [facility], [place]. tel:[phone] Referring Provider: [facility] [address] [facility] [address], [place], [facility]. tel:[phone] Office/outpat ient Visit, [facility], [address] [place] [address] [address], [place], [place], [id number], [place] tel:[phone] [facility] [place] No Information 0 Kim Shaikh [address] [facility] , [address], [place], [facility], [place]. tel:[phone] Office/outpat ient Visit, [facility], [address] [place] [address] [address], [place], [place], [id number], [place] tel:[phone] SEC [facility] [place] No Information 200 9 Kim Shaikh [address] , [address], [place], [facility], [place]. tel:[phone] [facility], [address] [place] [address] [address], [place], [place], [address], [place] tel:[phone] [facility] No Information 6200 9 Kim Shaikh [address] , [address], [place], [facility], [place]. tel:[phone] Referring Provider: Trinidad Najera, [address], [place], [address]. tel:[phone] [facility], [address], [place], [place], [address], [place] tel:[phone] [facility] No Information Olivier-2 5-200 9 Kim Abdi. [address] , [address], [place], [facility], [place]. tel:[phone] Office/outpat ient Visit, [facility], [address] [place] [address] [address], [place], [place], [id number], [place] tel:[phone] [facility] [place] No Information Mar-1 2-200 9 Kim Abdi. [facility] , [address], [place], [facility], [place]. tel:[phone] Office/outpat ient Visit, [facility], [address] [place] [address] [address], [place], [place], [id number], [place] tel:[phone] [facility] [place] No Information Sep-1 1-200 8 Kim Shaikh [address] [facility] , [address], [place], [facility], [place]. tel:[phone] [facility], [address] [place] [address] [address], [place], [place], [address], [place] tel:[phone] [facility] No Information January-2 0-200 8 Kim Abdi. [address] [facility] , [address], [place], [facility], [place]. tel:[phone] Referring Provider: Trinidad aNjera, [address], [place], [facility]. tel:[phone] Office/outpat ient Visit, [facility], [address] [place] [address] [address], [place], [place], [address], [place] tel:[phone] [facility] No Information 0-200 8 Kim Abdi. [address] , [address], [place], [facility], . tel:[phone] Office/outpat ient Visit, [facility], [address], [place], [place], [address], tel:[phone] [facility] No Information May-2 0-200 7 Kim Abdi. [address] , [address], [place], [facility], . tel:[phone] Referring Provider: Trinidad Najera, [address], [place], [facility]. tel:[phone] [facility], [address] [place] [address] [address], [place], [place], [address], tel:[phone] SEC [facility] No Information 7200 7 Kim Abdi. [facility] , [address], [place], [facility], [place]. tel:[phone] Referring Provider: Trinidad Najera, [address], [place], [facility]. tel:[phone] [facility], [address] [place] [address] [address], [place], [place], [address], [place] tel:[phone] SEC [facility] No Information 6200 7 Kim Abdi. [facility] , [address], [place], [facility], [place]. tel:[phone] Referring Provider: Trinidad Najera, [address] [facility] [address], [place], [facility]. tel:[phone] [facility], [address] [place] [address] [address], [place], [place], [id number], tel:[phone] SEC [facility] No Information 0 3-200 7 [facility] . [address], [address], [place], [place], [id number], . tel:[phone] Referring Provider: Trinidad Najera, [address] [place] [address] [address], [place], [address]. tel:[phone] sulting Provider: Casey Alves, [address] [place] [address], [place], [facility]. tel:[phone] [facility], [address], [place], [place], [address], tel:[phone] SEC [facility] No Information 3-200 7 Kim Abdi. [address] [place] [address] , [address], [place], [address], [place]. tel:[phone] [facility], [address], [place], [place], [address], [place] tel:[phone] SEC [facility] No Information 0200 7 Kim Abdi. [address] [place] [address] , [address], [place], [address], [place]. tel:[phone] Family History Family Member Type Diagnosis Age At Onset No Information Payers Payer name Insurance type Covered republican ID Authoriza tion(s) No Information Social History Type Description Quantity Date Captured Comments Sex Female Smoking Status No Information Chief Complaint And Reason For Visit No Information Reason For Referral Reason For Referral No Information History Of Present Illness Encounter Date Complaint History Of Prese nt Illness No Information Functional Status Date Functional Assessmen t No Information Instructions Date Instruction Additional Infor mation No Information Assessments Type Assessment Date No Information Patient Care Teams Name Effective Dates (start - stop) Status Members No Information
--- OUTSIDE RECORDS SUMMARY | 2025-02-17 11:30 | XMS_ITS | Data Portability ---
[facility] [address] [place] [address] Care Team Providers Care Dietary Tech Name Role Phone SOPHIE GREEN Primary Care Provider [phone] FLORY HAYWARD Museum Director MARY BETH CORNELL Lab Instructor JESSE SOTO Printing Plate Clerk PAL SAEED House Nurse CHASIDY LE Addiction Therapist GIRISH CÁRDENAS Medical Oncologist [phone] Assessment Encounter Date Assessment Date Assessment LastModified by Organization Details LastModified Time 04/23/2024 04/23/2024 doxycycline for 10 days she will call in 2-3 days with update any fever chills confusion or if she develops any significant worsening over the next few days go to ER [email or web address] Not available 04/25/2024 21:41:42 06/17/2024 06/17/2024 flu shot. Healthy lifestyle care instructions. Refill triamcinolone. Problems in the assessment and plan have been discussed in the management of those problems. Patient has been given the opportunity to ask questions all questions have been answered to patient's satisfaction she will follow up on me in 3 months [email or web address] Not available 07/13/2024 17:48:31 08/19/2024 08/19/2024 her medical problems appear to be stable healthy lifestyle care instructions blood work for biochemical management of disease processes and medications. She will follow up with me in 3 months. All questions answered Not available 08/23/2024 20:04:08 11/14/2024 11/14/2024 continue current therapy diagnosis in the assessment and plan have been discussed she will follow up in 3 months she wants a Navage system to irrigate her sinuses and she wants to see if her insurance company will pay for it we will write for it to be used as directed on the container see me in 3 months Not available 11/15/2024 20:55:43 02/12/2025 02/12/2025 Overall she appears to be stable we will obtain blood work continue with the current therapy questions have been answered follow up in 3-4 months [email or web address] Not available 02/14/2025 17:14:06 Plan of Treatment Reminders Order Date Submit Date Provider Last Modified By Organization Details Last Modified Time Details Appointments ANY 15 2024 11:00A M Sophie Green MD Not available Not available Not available Lab HbA1c (hemoglob in A1c), blood 2024 025 [email or web address] [facility], [address], [place], [address], 02/12/2025 17:58:05 lipid panel, serum 2024 025 [email or web address] [facility], [address], [place], [address], 02/12/2025 17:58:05 CBC w/ auto diff 2024 025 [email or web address] [facility], [address], [place], [address], 02/12/2025 17:58:05 CMP, serum or plasma 2024 025 [email or web address] [facility], [address], [place], [address], 02/12/2025 17:58:05 HbA1c (hemoglob in A1c), blood 2024 025 [email or web address] [facility], [address], [place], [address], 11/15/2024 08:25:18 lipid panel, serum 2024 025 [email or web address] [address], [place], [address], 11/15/2024 08:25:16 CBC w/ auto diff 2024 025 [facility], [address], [place], [address], 11/15/2024 08:25:19 CMP, serum or plasma 2024 025 [facility], [address], [place], [address], 11/15/2024 08:25:17 HbA1c (hemoglob in A1c), blood 2023 024 [facility], [address], [place], [address], 08/20/2024 10:15:11 lipid panel, serum 2023 024 [facility], [address], [place], [address], 08/20/2024 10:15:08 CMP, serum or plasma 2023 024 [facility], [address], [place], [address], 08/20/2024 10:15:10 CBC w/ auto diff 2023 024 [facility], [address], [place], [address], 08/20/2024 10:15:13 Referral None recorded. Procedures None recorded. Surgeries None recorded. Imaging None recorded. Medication Orders triamcino lone acetonide 0.1 % topical cream 2023 024 [email or web address] [id number], [address], [place], [place], [id number], 06/17/2024 18:18:32 doxycycli ne hyclate 100 mg capsule 2023 [id number], [address], [place], [place], [id number], 06/17/2024 14:26:55 Patient TargetsNo targets recorded. Patient Instructions Encounter Date Encounter Id Patient Instructions Last Modified By Organization Details Last Modified Time 06/17/2024 [id number] A healthy lifestyle: care instructions [email or web address] Not available 06/17/2024 18:18:32 08/19/2024 [id number] A healthy lifestyle: care instructions [email or web address] Not available 08/19/2024 16:39:48 11/14/2024 [id number] A healthy lifestyle: care instructions [email or web address] Not available 11/14/2024 12:47:57 02/12/2025 [id number] A healthy lifestyle: care instructions [email or web address] Not available 02/12/2025 17:58:05 Reason for Referral None Reported. Results Created Date Observation Date Name Description Value Unit Range Abnormal Flag Note LastModifiedBy Organization Detail LastModifiedTime 08/19/2008/20/2024 LIPID PANEL cholesterol, total 118 mg/dL 100-19 9 Not Available [facility] ([facility]) [address], [place], [address], 08/20/2024 10:15:08 08/19/2008/20/2024 LIPID PANEL triglyceride s 173 mg/dL 0-149 above high normal Not Available [facility] ([facility]) [address] [place], [address], 08/20/2024 10:15:08 08/19/2008/20/2024 LIPID PANEL HDL cholesterol 36 mg/dL >39 below low normal Not Available [facility] ([facility]) [address] [place], [address], 08/20/2024 10:15:08 08/19/20 24 08/20/2024 LIPID PANEL VLDL cholesterol getachew 29 mg/dL 5-40 Not Available [facility] ([facility]) [address] [place], [address], 08/20/2024 10:15:08 08/19/20 24 08/20/2024 LIPID PANEL LDL chol calc ([facility]) 53 mg/dL 0-99 Not Available [facility] ([facility]) [address] [place], [address], 08/20/2024 10:15:08 08/19/20 24 08/20/2024 COMP. METAB OLIC PANEL (14) glucose 115 mg/dL 70-99 above high normal Not Available [facility] ([facility]) [address] [place], [address], 08/20/2024 10:15:10 08/19/20 24 08/20/2024 COMP. METAB OLIC PANEL (14) BUN 25 mg/dL 8-27 Not Available [facility] ([facility]) [address] [place], [address], 08/20/2024 10:15:10 08/19/20 24 08/20/2024 COMP. METAB OLIC PANEL (14) creatinine 0.92 mg/dL 0.57-1 .00 Not Available [facility] ([facility]) [address] [place], [address], 08/20/2024 10:15:10 08/19/20 24 08/20/2024 COMP. METAB OLIC PANEL (14) eGFR 66 mL/mi n/1.7 3 >59 Not Available [facility] ([facility]) [address] [place], [address], 08/20/2024 10:15:10 08/19/20 24 08/20/2024 COMP. METAB OLIC PANEL (14) BUN/creatini ne ratio 27 12-28 Not Available [facility] ([facility]) [address], [place], [address], 08/20/2024 10:15:10 08/19/20 24 08/20/2024 COMP. METAB OLIC PANEL (14) sodium 143 mmol/ L 134-14 4 Not Available [facility] ([facility]) [address] [place], [address], 08/20/2024 10:15:10 08/19/20 24 08/20/2024 COMP. METAB OLIC PANEL (14) potassium 4.3 mmol/ L 3.5-5. 2 Not Available [facility] ([facility]) [address] [place], [address], 08/20/2024 10:15:10 08/19/20 24 08/20/2024 COMP. METAB OLIC PANEL (14) chloride 106 mmol/ L 96-106 Not Available [facility] ([facility]) [address] [place], [address], 08/20/2024 10:15:10 08/19/20 24 08/20/2024 COMP. METAB OLIC PANEL (14) carbon dioxide, total 22 mmol/ L 20-29 Not Available [facility] ([facility]) [address] [place], [address], 08/20/2024 10:15:10 08/19/20 24 08/20/2024 COMP. METAB OLIC PANEL (14) calcium 9.4 mg/dL 8.7-10 .3 Not Available [facility] ([facility]) [address] [place], [address], 08/20/2024 10:15:10 08/19/20 24 08/20/2024 COMP. METAB OLIC PANEL (14) protein, total 6.7 g/dL 6.0-8. 5 Not Available [facility] ([facility]) [address] [place], [address], 08/20/2024 10:15:10 08/19/20 24 08/20/2024 COMP. METAB OLIC PANEL (14) albumin 3.9 g/dL 3.8-4. 8 Not Available [facility] ([facility]) [address], [place], [address], 08/20/2024 10:15:10 08/19/20 24 08/20/2024 COMP. METAB OLIC PANEL (14) globulin, total 2.8 g/dL 1.5-4. 5 Not Available [facility] ([facility]) [address], [place], [address], 08/20/2024 10:15:10 08/19/20 24 08/20/2024 COMP. METAB OLIC PANEL (14) bilirubin, total 0.3 mg/dL 0.0-1. 2 Not Available [facility] ([facility]) [address], [place], [address], 08/20/2024 10:15:10 08/19/20 24 08/20/2024 COMP. METAB OLIC PANEL (14) alkaline phosphatase 112 IU/L 44-121 Not Available [facility]) [address], [place], [address], 08/20/2024 10:15:10 08/19/20 24 08/20/2024 COMP. METAB OLIC PANEL (14) AST (SGOT) 17 IU/L 0-40 Not Available [facility] ([facility]) [address], [place], [address], 08/20/2024 10:15:10 08/19/20 24 08/20/2024 COMP. METAB OLIC PANEL (14) ALT (SGPT) 18 IU/L 0-32 Not Available [facility] ([facility]) [address], [place], [address], 08/20/2024 10:15:10 08/19/20 24 08/20/2024 HEMOG LOBIN A1C hemoglobin A1C 6.5 % 4.8-5. 6 above high normal Predi abete s: 5.7 - 6.4 Diabe johnie: >6.4 Glyce ugo contr ol for adult s with diabe johnie: <7.0 Not Available [facility] ([facility]) [address] [place], [address], 08/20/2024 10:15:11 08/19/20 24 08/20/2024 CBC WITH DIFFE RENTI AL/PL ATELE T WBC 15.8 x10e3 /uL 3.4-10 .8 above high normal Eff ectiv e Decem carl 2023 profi jennifer [id number] 5 WBC will be made* * non-o rdera ble as a stand -leticia e order code. Not Available [facility] ([facility]) [address], [place], [address], 08/20/2024 10:15:12 08/19/20 24 08/20/2024 CBC WITH DIFFE RENTI AL/PL ATELE T RBC 5.09 x10e6 /uL 3.77-5 .28 Not Available [facility] ([facility]) [address], [place], [address], 08/20/2024 10:15:12 08/19/20 24 08/20/2024 CBC WITH DIFFE RENTI AL/PL ATELE T hemoglobin 13.9 g/dL 11.1-1 5.9 Not Available [facility] ([facility]) [address] [place], [address], 08/20/2024 10:15:12 08/19/20 24 08/20/2024 CBC WITH DIFFE RENTI AL/PL ATELE T hematocrit 43.0 % 34.0-4 6.6 Not Available [facility] ([facility]) [address] [place], [address], 08/20/2024 10:15:12 08/19/20 24 08/20/2024 CBC WITH DIFFE RENTI AL/PL ATELE T MCV 85 fL 79-97 Not Available [facility] ([facility]) [address], [place], [address], 08/20/2024 10:15:12 08/19/20 24 08/20/2024 CBC WITH DIFFE RENTI AL/PL ATELE T MCH 27.3 pg 26.6-3 3.0 Not Available [facility] ([facility]) [address], [place], [address], 08/20/2024 10:15:12 08/19/20 24 08/20/2024 CBC WITH DIFFE RENTI AL/PL ATELE T MCHC 32.3 g/dL 31.5-3 5.7 Not Available [facility] ([facility]) [address] [place], [address], 08/20/2024 10:15:12 08/19/20 24 08/20/2024 CBC WITH DIFFE RENTI AL/PL ATELE T RDW 13.2 % 11.7-1 5.4 Not Available [facility] ([facility]) [address] [place], [address], 08/20/2024 10:15:12 08/19/20 24 08/20/2024 CBC WITH DIFFE RENTI AL/PL ATELE T platelets 279 x10e3 /uL 150-45 0 Not Available [facility] ([facility]) [address] [place], [address], 08/20/2024 10:15:12 08/19/20 24 08/20/2024 CBC WITH DIFFE RENTI AL/PL ATELE T neutrophils 72 % notest ab. Not Available [facility] ([facility]) [address] [place], [address], 08/20/2024 10:15:12 08/19/20 24 08/20/2024 CBC WITH DIFFE RENTI AL/PL ATELE T lymphs 19 % notest ab. Not Available [facility] ([facility]) [address] [place], [address], 08/20/2024 10:15:12 08/19/20 24 08/20/2024 CBC WITH DIFFE RENTI AL/PL ATELE T monocytes 7 % notest ab. Not Available [facility] ([facility]) [address], [place], [address], 08/20/2024 10:15:12 08/19/20 24 08/20/2024 CBC WITH DIFFE RENTI AL/PL ATELE T eos 2 % notest ab. Not Available [facility] ([facility]) [address], [place], [address], 08/20/2024 10:15:12 08/19/20 24 08/20/2024 CBC WITH DIFFE RENTI AL/PL ATELE T basos 0 % notest ab. Not Available [facility] ([facility]) [address] [place], [address], 08/20/2024 10:15:12 08/19/20 24 08/20/2024 CBC WITH DIFFE RENTI AL/PL ATELE T neutrophils (absolute) 11.3 x10e3 /uL 1.4-7. 0 above high normal Not Available [facility] ([facility]) [address] [place], [address], 08/20/2024 10:15:12 08/19/20 24 08/20/2024 CBC WITH DIFFE RENTI AL/PL ATELE T lymphs (absolute) 3.0 x10e3 /uL 0.7-3. 1 Not Available [facility] ([facility]) [address] [place], [address], 08/20/2024 10:15:12 08/19/20 24 08/20/2024 CBC WITH DIFFE RENTI AL/PL ATELE T monocytes(ab solute) 1.0 x10e3 /uL 0.1-0. 9 above high normal Not Available [facility] ([facility]) [address] [place], [address], 08/20/2024 10:15:12 08/19/20 24 08/20/2024 CBC WITH DIFFE RENTI AL/PL ATELE T eos (absolute) 0.3 x10e3 /uL 0.0-0. 4 Not Available [facility] ([facility]) [address], [place], [address], 08/20/2024 10:15:12 08/19/20 24 08/20/2024 CBC WITH DIFFE RENTI AL/PL ATELE T baso (absolute) 0.1 x10e3 /uL 0.0-0. 2 Not Available [facility] ([facility]) [address] [place], [address], 08/20/2024 10:15:12 08/19/20 24 08/20/2024 CBC WITH DIFFE RENTI AL/PL ATELE T immature granulocytes 0 % notest ab. Not Available [facility] ([facility]) [address] [place], [address], 08/20/2024 10:15:12 08/19/20 24 08/20/2024 CBC WITH DIFFE RENTI AL/PL ATELE T immature grans (abs) 0.0 x10e3 /uL 0.0-0. 1 Not Available [facility] ([facility]) [address] [place], [address], 08/20/2024 10:15:12 11/14/19 25 11/15/2024 LIPID PANEL cholesterol, total 112 mg/dL 100-19 9 Not Available [facility] ([facility]) [address] [place], [address], 11/15/2024 08:25:16 11/14/19 25 11/15/2024 LIPID PANEL triglyceride s 135 mg/dL 0-149 Not Available [facility] ([facility]) [address] [place], [address], 11/15/2024 08:25:16 11/14/19 25 11/15/2024 LIPID PANEL HDL cholesterol 41 mg/dL >39 Not Available [facility] ([facility]) [address] [place], [address], 11/15/2024 08:25:16 11/14/19 25 11/15/2024 LIPID PANEL VLDL cholesterol getachew 24 mg/dL 5-40 Not Available [facility] ([facility]) [address] [place], [address], 11/15/2024 08:25:16 11/14/19 25 11/15/2024 LIPID PANEL LDL chol calc ([facility]) 47 mg/dL 0-99 Not Available [facility] ([facility]) [address] [place], [address], 11/15/2024 08:25:16 11/14/19 25 11/15/2024 COMP. METAB OLIC PANEL (14) glucose 89 mg/dL 70-99 Not Available [facility] ([facility]) [address] [place], [address], 11/15/2024 08:25:17 11/14/19 25 11/15/2024 COMP. METAB OLIC PANEL (14) BUN 30 mg/dL 8-27 above high normal Not Available [facility] ([facility]) [address] [place], [address], 11/15/2024 08:25:17 11/14/19 25 11/15/2024 COMP. METAB OLIC PANEL (14) creatinine 0.95 mg/dL 0.57-1 .00 Not Available [facility] ([facility]) [address] [place], [address], 11/15/2024 08:25:17 11/14/19 25 11/15/2024 COMP. METAB OLIC PANEL (14) eGFR 64 mL/mi n/1.7 3 >59 Not Available [facility] ([facility]) [address] [place], [address], 11/15/2024 08:25:17 11/14/19 25 11/15/2024 COMP. METAB OLIC PANEL (14) BUN/creatini ne ratio 32 12-28 above high normal Not Available [facility] ([facility]) [address] [place], [address], 11/15/2024 08:25:17 11/14/19 25 11/15/2024 COMP. METAB OLIC PANEL (14) sodium 139 mmol/ L 134-14 4 Not Available [facility] ([facility]) [address] [place], [address], 11/15/2024 08:25:17 11/14/19 25 11/15/2024 COMP. METAB OLIC PANEL (14) potassium 4.5 mmol/ L 3.5-5. 2 Not Available [facility] ([facility]) [address] [place], [address], 11/15/2024 08:25:17 11/14/19 25 11/15/2024 COMP. METAB OLIC PANEL (14) chloride 102 mmol/ L 96-106 Not Available [facility] ([facility]) [address] [place], [address], 11/15/2024 08:25:17 11/14/19 25 11/15/2024 COMP. METAB OLIC PANEL (14) carbon dioxide, total 22 mmol/ L 20-29 Not Available [facility] ([facility]) [address] [place], [address], 11/15/2024 08:25:17 11/14/19 25 11/15/2024 COMP. METAB OLIC PANEL (14) calcium 10.0 mg/dL 8.7-10 .3 Not Available [facility] ([facility]) [address], [place], [address], 11/15/2024 08:25:17 11/14/19 25 11/15/2024 COMP. METAB OLIC PANEL (14) protein, total 6.6 g/dL 6.0-8. 5 Not Available [facility] ([facility]) [address] [place], [address], 11/15/2024 08:25:17 11/14/19 25 11/15/2024 COMP. METAB OLIC PANEL (14) albumin 4.0 g/dL 3.8-4. 8 Not Available [facility] ([facility]) [address], [place], [address], 11/15/2024 08:25:17 11/14/19 25 11/15/2024 COMP. METAB OLIC PANEL (14) globulin, total 2.6 g/dL 1.5-4. 5 Not Available [facility] ([facility]) [address] [place], [address], 11/15/2024 08:25:17 11/14/19 25 11/15/2024 COMP. METAB OLIC PANEL (14) bilirubin, total 0.4 mg/dL 0.0-1. 2 Not Available [facility] ([facility]) [address] [place], [address], 11/15/2024 08:25:17 11/14/19 25 11/15/2024 COMP. METAB OLIC PANEL (14) alkaline phosphatase 115 IU/L 44-121 Not Available [facility] ([facility]) [address] [place], [address], 11/15/2024 08:25:17 11/14/19 25 11/15/2024 COMP. METAB OLIC PANEL (14) AST (SGOT) 18 IU/L 0-40 Not Available [facility] ([facility]) [address], [place], [address], 11/15/2024 08:25:17 11/14/1911/15/2024 COMP. METAB OLIC PANEL (14) ALT (SGPT) 15 IU/L 0-32 Not Available [facility] ([facility]) [address], [place], [address], 11/15/2024 08:25:17 11/14/19 25 11/15/2024 HEMOG LOBIN A1C hemoglobin A1C 6.4 % 4.8-5. 6 above high normal Predi abete s: 5.7 - 6.4 Diabe johnie: >6.4 Glyce ugo contr ol for adult s with diabe johnie: <7.0 Not Available [facility] ([facility]) [address], [place], [address], 11/15/2024 08:25:18 11/14/1911/15/2024 CBC WITH DIFFE RENTI AL/PL ATELE T WBC 19.4 x10e3 /uL 3.4-10 .8 above high normal Not Available [facility] ([facility]) [address], [place], [address], 11/15/2024 08:25:19 11/14/19 25 11/15/2024 CBC WITH DIFFE RENTI AL/PL ATELE T RBC 4.94 x10e6 /uL 3.77-5 .28 Not Available [facility] ([facility]) [address] [place], [address], 11/15/2024 08:25:19 11/14/1911/15/2024 CBC WITH DIFFE RENTI AL/PL ATELE T hemoglobin 13.7 g/dL 11.1-1 5.9 Not Available [facility] ([facility]) [address] [place], [address], 11/15/2024 08:25:19 11/14/19 25 11/15/2024 CBC WITH DIFFE RENTI AL/PL ATELE T hematocrit 43.1 % 34.0-4 6.6 Not Available [facility] ([facility]) [address], [place], [address], 11/15/2024 08:25:19 11/14/19 25 11/15/2024 CBC WITH DIFFE RENTI AL/PL ATELE T MCV 87 fL 79-97 Not Available [facility] ([facility]) [address] [facility], [place], [address], 11/15/2024 08:25:19 11/14/1911/15/2024 CBC WITH DIFFE RENTI AL/PL ATELE T MCH 27.7 pg 26.6-3 3.0 Not Available [facility] ([facility]) [address] [place], [address], 11/15/2024 08:25:19 11/14/1911/15/2024 CBC WITH DIFFE RENTI AL/PL ATELE T MCHC 31.8 g/dL 31.5-3 5.7 Not Available [facility] ([facility]) [address] [facility], [place], [address], 11/15/2024 08:25:19 11/14/1911/15/2024 CBC WITH DIFFE RENTI AL/PL ATELE T RDW 13.0 % 11.7-1 5.4 Not Available [facility] ([facility]) [address] [place], [address], 11/15/2024 08:25:19 11/14/1911/15/2024 CBC WITH DIFFE RENTI AL/PL ATELE T platelets 301 x10e3 /uL 150-45 0 Not Available [facility] ([facility]) [address] [place], [address], 11/15/2024 08:25:19 11/14/19 25 11/15/2024 CBC WITH DIFFE RENTI AL/PL ATELE T neutrophils 72 % notest ab. Not Available [facility] ([facility]) [address] [place], [address], 11/15/2024 08:25:19 11/14/19 25 11/15/2024 CBC WITH DIFFE RENTI AL/PL ATELE T lymphs 19 % notest ab. Not Available [facility] ([facility]) [address] [place], [address], 11/15/2024 08:25:19 11/14/19 25 11/15/2024 CBC WITH DIFFE RENTI AL/PL ATELE T monocytes 6 % notest ab. Not Available [facility] ([facility]) [address] [facility], [place], [address], 11/15/2024 08:25:19 11/14/1911/15/2024 CBC WITH DIFFE RENTI AL/PL ATELE T eos 2 % notest ab. Not Available [facility] ([facility]) [address] [place], [address], 11/15/2024 08:25:19 11/14/1911/15/2024 CBC WITH DIFFE RENTI AL/PL ATELE T basos 0 % notest ab. Not Available [facility] ([facility]) [address] [place], [address], 11/15/2024 08:25:19 11/14/1911/15/2024 CBC WITH DIFFE RENTI AL/PL ATELE T neutrophils (absolute) 13.9 x10e3 /uL 1.4-7. 0 above high normal Not Available [facility] ([facility]) [address] [place], [address], 11/15/2024 08:25:19 11/14/19 25 11/15/2024 CBC WITH DIFFE RENTI AL/PL ATELE T lymphs (absolute) 3.8 x10e3 /uL 0.7-3. 1 above high normal Not Available [facility] ([facility]) [address] [facility], [place], [address], 11/15/2024 08:25:19 11/14/19 25 11/15/2024 CBC WITH DIFFE RENTI AL/PL ATELE T monocytes(ab solute) 1.1 x10e3 /uL 0.1-0. 9 above high normal Not Available [facility] ([facility]) [address] [facility], [place], [address], 11/15/2024 08:25:19 11/14/1911/15/2024 CBC WITH DIFFE RENTI AL/PL ATELE T eos (absolute) 0.4 x10e3 /uL 0.0-0. 4 Not Available [facility] ([facility]) [address] [place], [address], 11/15/2024 08:25:19 11/14/1911/15/2024 CBC WITH DIFFE RENTI AL/PL ATELE T baso (absolute) 0.1 x10e3 /uL 0.0-0. 2 Not Available [facility] ([facility]) [address] [facility], [place], [address], 11/15/2024 08:25:19 11/14/1911/15/2024 CBC WITH DIFFE RENTI AL/PL ATELE T immature granulocytes 1 % notest ab. Not Available [facility] ([facility]) [address] [place], [address], 11/15/2024 08:25:19 11/14/1911/15/2024 CBC WITH DIFFE RENTI AL/PL ATELE T immature grans (abs) 0.2 x10e3 /uL 0.0-0. 1 above high normal (An eleva marilee perce ntage of Immat ure Granu locyt es has not been found to be clini chris signi fican t as a sole clini getachew predi ctor of disea se. Does NOT inclu de bands or blast cells . Pregn thomas assoc iated physi ologi getachew leuko cytos is may also show incre ased immat ure granu locyt es witho ut clini getachew signi fican ce.) Not Available [facility] ([facility]) [address], [place], [address], 11/15/2024 08:25:19 03/28/20 24 03/28/2024 bone densi ty No observ ation record ed. [facility] [address] [place], [address], 04/02/2024 14:29:56 04/18/20 24 04/16/2024 MAMMO , scree ben, bilat eral No observ ation record ed. [facility] [address] [place], [address], 04/29/2024 11:20:36 Result Notes None recorded. Problems Name Problem SNOMED Code Status Onset Date Resolution Date Notes Provider Name and Address Organization Details Recorded Time Type 2 diabetes mellitus 41277040 Active 2023 Sophie Green MD Attn: Ga de leon,[address] [place], [address], [facility] 4 12:04:42 Essential hypertension 80333514 Active 2023 Sophie Green MD Attn: Ga de leon,[address] [place], [place], [address], [place] [facility] 4 12:04:43 Hyperlipidemia 24389931 Active 2023 Sophie Green MD Attn: Ga de leon,[address] [place], [address], [place] [facility] 4 12:04:46 Chronic obstructive pulmonary disease 36692801 Active 2023 Sophie Green MD Attn: Ga de leon,[address] [place], [address], [facility] - [facility] 4 12:04:47 Chronic rhinitis 10168145 Active 2023 Sophie Green MD Attn: Ga de leon,[address] [facility], [place], [address], [facility] - [facility] 4 12:04:48 Gastroesophage al reflux disease without esophagitis 416152402 Active 2023 Sophie Green MD Attn: Ga de leon,[address] [facility], [place], [address], [facility] - [facility] 4 12:04:51 Chronic diastolic heart failure 665755895 Active 2023 Sophie Green MD Attn: Ga de leon,[address] [facility], [place], [address], [facility] - [place] 4 12:05:15 Problem Notes None recorded. Procedures Surgical History Date Name Laterality Status Provider Name and Address Organization Details Recorded Time 05/30/20 24 Upper gi endoscopy performed completed Abi Sandoval LPN [facility] 06/12/2024 11:04:35 hysterectomy completed [facility] 12:11:31 tonsillectomy completed [facility] 12:11:38 appendectomy completed [facility] 12:11:44 procedure on aorta completed [facility] 03/19/2024 12:12:03 hammer toe operation completed [facility] 03/19/2024 12:12:09 Imaging Results None recorded. Procedure Notes None recorded. Medical Equipment None Reported. Allergies Allergen ID Allergen Name Allergen Category Reaction Reaction Severity Criticality Documentation Date Start Date Code Code System Note Provider Name and Address Organization Details Recorded Time 260751 hydrocodo ne Not available nausea vomiting Not available Not available Not available 12/03/2023 5489 RxNoNASIMA Arnold, [place] - [place] 14:50:27 837228 nickel environme nt rash Not available Not available 12/03/2023 13114 29 RxNorm Emmanuelle Rizzo RMA [place], [place] [facility] 4 14:50:48 872886 metformin medicatio n diarrhea Not available Not available 12/03/2023 6809 RxNorm Emmanuelle Rizzo R[place] [facility] 4 14:50:58 296885 Levaquin medicatio n rash Not available Not available 12/03/2023 97732 2 RxNorm Emmanuelle Rizzo R[place] [facility] 4 14:51:09 018084 mold extract environme nt Not available Not available Not available 12/03/2023 31537 8 RxNorm Emmanuelle Riz[place] R[place] [facility] 4 14:51:28 606724 amoxicill in medicatio n vomiting Not available Not available 12/03/2023 723 RxNorm Emmanuelle Rizzo R[place] [facility] 4 14:51:39 584951 potassium medicatio n diarrhea Not available Not available 12/03/2023 8588 RxNorm Emmanuelle Rizzo R[place] [facility] 4 14:52:09 761118 Alphagan medicatio n eye redness Not available Not available 12/03/2023 19974 8 RxNorm BETTY Perez, [place] [facility] 5 10:16:33 559335 Darvocet- N medicatio n dyspnea Not available Not available 12/03/2023 53545 UNK Emmanuelle Rizzo RMA [place] [facility] 4 14:52:59 032304 Dilaudid medicatio n Not available Not available Not available 12/03/2023 21227 3 RxNorm clamm y and hot flash es Emmanuelle Rizzo RMA [place] [facility] 4 14:53:30 811404 hydrochlo rothiazid e medicatio n Not available Not available Not available 12/03/2023 5487 RxNorm Emmanuelle Riz[place] R[place] [facility] 4 14:53:47 686673 Medicinal product acting as adhesive (product) environme nt,medica tion hives itching Not available Not available high 11/14/20242015 23327 2009 SNOMED BETTY Perez, [place] [facility] 5 10:16:27 316164 Altace medicatio n hives Not available Not available 11/14/2024 59032 8 RxNorm BETTY Perez, [place] - [facility] 5 10:16:36 057700 Augmentin medicatio n diarrhea vomiting severe moderate Not available 11/14/20242021 03837 2 RxNorm BETTY Perez, [place] [facility] 5 10:16:40 153554 azithromy luz medicatio n diarrhea severe Not available 11/14/2024 96796 RxNorm BETTY Perez, [place] [facility] 5 10:16:45 096364 brimonidi ne medicatio n Not available Not available low 11/14/20242015 50976 5 RxNorm RED EYE RED EYE React ion: Other React ion: Other , BETTY Perez, [place] [facility] 5 10:16:49 992798 brinzolam hina medicatio n itching Not available low 11/14/20242015 38276 1 RxNorm RED EYES RED EYES BETTY Perez, [place] [facility] 5 10:16:59 Medications Name Sig Start Date Stop Date Status Note LastModified by Organization Details LastModified Time OneTouch Ultra Blue Test Strips test blood sugars four times daily as directed 2023 active Not Available Not Available Not Avai lable furosemide 40 mg tablet TAKE 1 TABLET BY MOUTH EVERY DAY active Not Available Not Available No t Available atorvastati n 40 mg tablet TAKE 1 TABLET BY MOUTH EVERY DAY IN THE EVENING active Not Available Not Available No t Available fluticasone 250 mcg-salmete rol 50 mcg/dose blistr powdr for inhalation INHALE 1 PUFF BY MOUTH TWICE DAILY active Not Available Not Available No t Available carvedilol 6.25 mg tablet TAKE 1 TABLET BY MOUTH DAILY active Not Available Not Available No t Available doxycycline hyclate 100 mg capsule TAKE 1 CAPSULE BY MOUTH TWICE DAILY FOR 10 DAYS 06/17 completed Not Available Not Available Not Available meclizine 12.5 mg tablet TAKE 1 TABLET BY MOUTH FOUR TIMES DAILY NEEDED active Not Available Not Available No t Available aspirin 81 mg tablet,laine yed release Take 1 tablet every day by oral route. active Not Available Not Available No t Available acetaminoph en 500 mg tablet Take 2 tablets every 6 hours by oral route. active Not Available Not Available No t Available triamcinolo ne acetonide 0.1 % topical cream APPLY TOPICALLY TO RASH DAILY active Not Available Not Available No t Available glimepiride 1 mg tablet TAKE 1/2 TABLET BY MOUTH EVERY DAY IN THE MORNING active Not Available Not Available No t Available InToTallyToPhizzle Ultra Test strips USE TO TEST BLOOD SUGAR FOUR TIMES DAILY active Not Available Not Available No t Available Humulin R Regular U-100 Insulin 100 unit/mL injection solution ADMINISTE R 15 UNITS UNDER THE SKIN DAILY active Not Available Not Available No t Available erythromyci n 5 mg/gram (0.5 %) eye ointment APPLY SMALL AMOUNT TO SURGICAL SITE THREE TIMES DAILY BEGINNING AFTER SURGERY 06/17 completed Not Available Not Available Not Available [...] MOUTH ONCE AT 8 AM ON 05/29 completed Not Available Not Available Not Available lisinopril 5 mg tablet TAKE 1 TABLET BY MOUTH DAILY active Not Available Not Available No t Available Visine 0.05 % eye drops As needed active Not Available Not Availabl e Not Available gentamicin 0.1 % topical ointment APPLY A SMALL AMOUNT EXTERNALL Y TO THE AFFECTED AREA OF TOE ULCER THREE TIMES DAILY 06/17 completed Not Available Not Available Not Available Alcohol Prep Pads USE 6 TIMES DAILY DIRECTED active Not Available Not Available No t Available Spiriva with HandiHaler 18 mcg and inhalation capsules INHALE THE CONTENTS OF 1 CAPSULE VIA INHALATIO N DEVICE EVERY DAY active Not Available Not Available No t Available aspirin 03/19 completed Not Available Not Available Not Available Co Q-10 Daily active Not Available Not Avail able Not Available Humulin 70/30 U-100 Insulin inject 5-20 units subcutane ously under skin up to 3 times per day per sliding scale as needed active Not Available Not Available No t Available Tums As needed active Not Available Not Yesica ilable Not Available Levemir U-100 Insulin 100 unit/mL subcutaneou s solution INJECT SUBCUTANE OUS 100 UNITS EVERY MORNING AND 70 UNITS EVERY EVENING 12/02 completed Not Available Not Available Not Available BD Ultra-Fine Short Pen Needle 31 gauge x 02/06 USE TO INJECT INSULIN DAILY DIRECTED 2023 active Not Available Not Available Not Avai lable Gavilyte-C 240 gram-22.72 gram-6.72 gram-5.84 gram oral solution MIX AND DRINK 1/2 BY MOUTH 5 PM ON 05/29 AND 1/2 AT 5 AM ON 05/30 completed Not Available Not Available Not Available Combivent Respimat 20 mcg-100 mcg/actuati on solution for inhalation INHALE 1 PUFF BY MOUTH FOUR TIMES DAILY NEEDED active Not Available Not Available No t Available Multi Vitamin Daily active Not Available Not Available Not Available Farxiga 5 mg tablet TAKE 1 TABLET BY MOUTH EVERY DAY active Not Available Not Available No t Available Tresiba FlexTouch U-100 insulin 100 unit/mL (3 mL) subcutaneou s pen ADMINISTE R 125 UNITS UNDER THE SKIN EVERY DAY active Not Available Not Available No t Available Rocklatan 0.02 %-0.005 % eye drops INSTILL 1 DROP IN BOTH EYES AT BEDTIME FOR 30 TO 90 DAYS active Not Available Not Available No t Available BD Melani 2nd Gen Pen Needle 32 gauge x 32 USE DAILY 2024 active Not Available Not Available Not Avai lable OneTouch Ultra2 Meter USE DIRECTED TO CHECK [...] injector INJECT 1MG UNDER THE SKIN WEEKLY 2024 active Not Available Not Available Geeta mckeon [facility] COVID-19 Antigen Rapid Home Test kit DIRECTED 12/02 completed Not Available Not Available Not Available Ozempic 0.25 mg or 0.5 mg (2 mg/3 mL) subcutaneou s pen injector INJECT 0.5 MG UNDER THE SKIN EVERY WEEK 11/19 completed Not Available Not Available Not Available Klayesta 100,000 unit/gram topical powder APPLY TOPICALLY TO THE AFFECTED AREA TWICE DAILY active Not Available Not Available No t Available Vitals Date Recorded Body height Body mass index (BMI) Body weight Provider Name and Address Organization Details Last Updated DateTime 11/14/2024 165.1 cm 36.5 kg/m2 94733.45 g Anjelica Dobbins MA [facility] 11/14/2024 10:33:39 Date Recorded Heart rate Oxygen saturation Oxygen saturation in Arterial blood by Pulse oximetry Systolic And Diastolic Provider Name and Address Organization Details Last Updated DateTime 11/14/2024 94 /min 97 % 97 % 120/62 mm[Hg] Geri Whitfield MA [facility] 5 10:25:36 Date Recorded Body height Body mass index (BMI) Body weight Heart rate Oxygen saturation Oxygen saturation in Arterial blood by Pulse oximetry Systolic And Diastolic Provider Name and Address Organization Details Last Updated DateTime 5 165.1 cm 37.2 kg/m2 544833. 25 g 94 /min 98 % 98 % 120/64 mm[Hg] Kalee Stone MA [facility] 5 15:12:57 Date Recorded Body height Body mass index (BMI) Body weight Heart rate Oxygen saturation Oxygen saturation in Arterial blood by Pulse oximetry Systolic And Diastolic Provider Name and Address Organization Details Last Updated DateTime 4 165.1 cm 36.2 kg/m2 11407.7 g 93 /min 95 % 95 % 108/62 mm[Hg] Kalee Stone MA [facility] 4 14:38:43 Date Recorded Body height Body mass index (BMI) Body weight Heart rate Oxygen saturation Oxygen saturation in Arterial blood by Pulse oximetry Systolic And Diastolic Provider Name and Address Organization Details Last Updated DateTime 4 165.1 cm 36.2 kg/m2 09920.0 6 g 92 /min 95 % 95 % 98/62 mm[Hg] Geri Whitfield MA [facility] 4 14:26:05 Date Recorded Body height Body mass index (BMI) Body weight Heart rate Oxygen saturation Oxygen saturation in Arterial blood by Pulse oximetry Systolic And Diastolic Provider Name and Address Organization Details Last Updated DateTime 4 165.1 cm 36.4 kg/m2 26762.2 9 g 92 /min 94 % 94 % 132/68 mm[Hg] Kalee Stone MA [facility] 4 14:24:46 Social History Question Answer Notes LastModified by Organizat ion Details LastModified Time Tobacco Smoking Status Never Smoker Ewa Lockwood MA [facility] 11/19/2023 15:08:08 Do You Have An Advance Directive? Yes Information not available 03/19/2024 Are You Blind Or Do You Have Difficulty Seeing? Yes Glaucoma Information not available 03/19/2024 What Is Your Level Of Caffeine Consumption? Occasional Information not available 03/19/2024 In The 14 Days Before Symptom Onset, Have You Had Close Contact With A Laboratory-confi rmed COVID-19 While That Case Was Ill? No Information not available 04/23/2024 In The 14 Days Before Symptom Onset, Have You Had Close Contact With A Person Who Is Under Investigation For COVID-19 While That Person Was Ill? No Information not available 04/23/2024 Have You Been To An Area Known To Be High Risk For COVID-19? No Information not available 04/23/2024 Are You Deaf Or Do You Have Serious Difficulty Hearing? No Information not available 11/19/2023 What Type Of Diet Are You Following? DIABETIC Information not available 03/19/2024 What Is The Highest Grade Or Level Of School You Have Completed Or The Highest Degree You Have Received? [id number] Information not available 03/19/2024 Are There Any Guns Present In Your Home? No Information not available 11/19/2023 In The Past 7 Days, How Many Days Did You Exercise? 0 Information not available 03/19/2024 In The Past 7 Days, How Much Pain Have You Mize? Some Information not available 03/19/2024 In General, Would You Say You Health Is: Good Information not available 03/19/2024 How Would You Describe The Condition Of Your Mouth And Teeth- Including False Teeth Or Dentures? Good Information not available 03/19/2024 Each Night, How Many Hours Of Sleep Do You Get? 7 Information not available 03/19/2024 Has Anyone Ever Told You That You Snore? Yes Information not available 03/19/2024 In The Past 7 Days, How Often Have You Mize Sleepy In The Daytime? Usually Information not available 03/19/2024 # Alcohol Drinks Per Week 0 Information not available 03/19/2024 What Was The Date Of Your Most Recent Tobacco Screening? 02/12/2025 Non Smoker Information not available 02/12/2025 What Is Your Relationship Status? Single Information not available 11/19/2023 Do You Use Your Seat Belt Or Car Seat Routinely? Yes Information not available 11/19/2023 Do You Have Smoke And Carbon Monoxide Detectors In Your Home? Yes Information not available 11/19/2023 Do You Use Sunscreen Routinely? No Information not available 03/19/2024 Has Tobacco Cessation Counseling Been Provided? No Information not available 11/19/2023 Sex: Female Functional Status Question Answer Note LastModified by Organizat ion Details LastModified Time Do you use any illicit or recreational drugs? No Information not available 11/19/2023 Do you or have you ever used any other forms of tobacco or nicotine? No Information not available 11/19/2023 What is your level of alcohol consumption? None Information not available 11/19/2023 Are you currently employed? No Information not available 03/19/2024 Are you able to care for yourself? Yes Information n ot available 11/19/2023 What is your exercise level? Occasional Information not available 03/19/2024 Mental Status Question Answer Note LastModified by Organization D etails LastModified Time Do you feel stressed (tense, restless, nervous, or anxious, or unable to sleep at night)? [id number] Information not available 03/19/2024 Family History Relationship Description Onset Age of this Age Resolved Age Notes LastModified by Organization Details LastModified Time Mother Asthma [email or web address] Not availabl e 12/03/2023 14:16:17 Mother Diabetes mellitus [email or web address] Not available 11/22 14:16:22 Medical History Condition Response Coronary Artery Disease N Other N Atrial Fibrillation N High Blood Pressure Y Kidney or Bladder Problems N Thyroid Problems N GI Problems N Depression N COPD N Blood Clots N Skin Problems N Anemia N Heart Attack ([place]) N Anxiety Disorder N Diabetes Y Muscle, Joint, or Bone Problems N Seizures/Epilepsy N Acid Reflux (GERD) N Cancer Y Stroke N Asthma Y Allergies N High Cholesterol Y Hepatitis N Liver Disease N Headaches N Heart Failure N Osteoporosis N Gynecological History Statement/Question Response If Post Menopausal, Age at Menopause 51 Current Control Method Menopause Obstetrics History GPAL:G 0 P 0 0 0 0 Immunizations Vaccine Type Date Status Note Provider Nam e and Address Organization Details Recorded Time Influenza, MDCK, quadrivalent, PF 9 completed Ewa Lockwood [place], [place] [facility] 11/19/2023 15:30:46 Influenza, MDCK, quadrivalent, PF 0 completed Ewa Lock[place] [facility] 11/19/2023 15:30:46 zoster recombinant 8 completed Ewa Lockwood [place] [facility] 11/19/2023 15:30:46 Influenza, high-dose, quadrivalent, PF 2 completed Ewa Lockwood [place] [facility] 11/19/2023 15:30:46 Influenza, high-dose, quadrivalent, PF 1 BETTY Smith[place] [facility] 11/19/2023 15:30:46 MMR 3 completed Ewa Lockwood [place] [facility] 11/19/2023 15:30:46 Influenza, adjuvanted, quadrivalent, PF 3 completed BETTY [place] [facility] 11/19/2023 15:30:46 COVID-19, mRNA, LNP-S, PF, 30 mcg/0.3 mL dose 1 completed BETTY [place] [facility] 11/19/2023 15:30:46 COVID-19, mRNA, LNP-S, PF, 30 mcg/0.3 mL dose 1 completed BETTY [place] [facility] 11/19/2023 15:30:46 COVID-19, mRNA, LNP-S, PF, 30 mcg/0.3 mL dose 1 [place] BETTY [place] [facility] 11/19/2023 15:30:47 COVID-19, mRNA, LNP-S, PF, 30 mcg/0.3 mL dose, rafael-sucrose 2 completed BETTY [place] [facility] 11/19/2023 15:30:47 COVID-19, mRNA, LNP-S, PF, rafael-sucrose, 30 mcg/0.3 mL 3 completed BETTY [place] [facility] 11/19/2023 15:30:47 pneumococcal polysaccharide PPV23 9 completed BETTY [place] [facility] 11/19/2023 15:30:47 pneumococcal polysaccharide PPV23 9 [place] BETTY [place] [facility] 11/19/2023 15:30:47 tetanus toxoid, unspecified formulation 2 completed BETTY [place] [facility] 11/19/2023 15:30:47 Pneumococcal conjugate PCV 13 7 [place] BETTY [place] [facility] 11/19/2023 15:30:47 Influenza, high-dose, trivalent, PF 8 [place] BETTY [place] [facility] 11/19/2023 15:30:47 Influenza, high-dose, trivalent, PF 7 completed Ewa Lockwood [place] [facility] 11/19/2023 15:30:47 Influenza, high-dose, trivalent, PF 4 completed Sophie Green MD Attn: Accounting,[address] [facility], [place], [address], [facility] - [facility] 07/13/2024 17:46:53 Past Encounters Encounter ID Performer Location Encounter Start Date Encounter Closed Date Diagnosis/Indication Diagnosis SNOMED-CT Code Diagnosis ICD10 Code Diagnosis Note [id number] Sophie Green MD [facility] (Adult Med) [address] [place] [address] 11/19/2023 14:45:48 11/19/2023 15:41:44 Type 2 diabetes mellitus 50383498 E11.9 Coronary atherosclerosis 963461471 I25.10 Essential hypertension 71301457 I10 Hyperlipidemia 55672914 E78.5 Obstructiv e sleep apnea syndrome 05727113 G47.33 Obesity 707876019 E66.9 Chronic pa inful neuropathy due to diabetes mellitus 595367207 E11.40 Gastroesop hageal reflux disease without esophagitis 543947022 K21.9 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 9434029319 0091134 J44.9 [id number] Sophie Green MD [facility] (Adult Med) [address] [place] [address] 12/03/2023 13:54:46 12/03/2023 15:03:50 Type 2 diabetes mellitus 11102215 E11.9 Essential hypertension 47537727 I10 Renewal of prescription 199400707 Z76.0 [id number] Sophie Green MD [facility] (Adult Med) [address] [place] [address] 03/04/2024 14:04:30 03/04/2024 15:09:54 Type 2 diabetes mellitus 42115359 E11.9 Essential hypertension 86248059 I10 Hyperlipidemia 85216703 E78.5 Chronic ob structive pulmonary disease 61486577 J44.9 Chronic rhinitis 5469950 6 J31.0 Gastroesop hageal reflux disease without esophagitis 555896909 K21.9 Chronic di astolic heart failure 297824661 I50.32 [id number] MD [facility] (Adult Med) [address] [place] [address] 03/19/2024 11:07:40 03/19/2024 12:38:29 Adult health examination 291039816 Z00.00 Health Risk Assessment collected and reviewed [facility] state 764 [address]93 Z78.0 Screening mammography 24 387137 Z12.31 Screening for malignant neoplasm of colon 070553391 Z12.11 Obesity 049771076 E66.8 [id number] Sophie Green MD [facility] (Adult Med) [address] [place] [address] 04/23/2024 14:19:22 04/23/2024 15:25:46 Cellulitis of right lower limb 3271222327 6796923 L03.834 [id number] Sophie Green MD [facility] (Adult Med) [address] [place] [address] 06/17/2024 14:00:22 06/17/2024 15:17:13 Obesity 720379250 E66.8 Chronic dermatitis 88078 007 L30.9 Administra tion of influenza vaccine 54571388 Z23 Chronic di astolic heart failure 727019586 I50.32 Chronic ob structive pulmonary disease 36841495 J44.9 Chronic rhinitis 2855485 6 J31.0 Essential hypertension 80916884 I10 Gastroesop hageal reflux disease without esophagitis 885443120 K21.9 Hyperlipidemia 22738159 E78.5 Type 2 robert betes mellitus 02603481 E11.9 [id number] MD [facility] (Adult Med) [address] [place] [phone] 08/19/2024 14:05:56 08/19/2024 15:27:18 Obesity 938568956 E66.9 Essential hypertension 71780052 I10 Type 2 robert betes mellitus 90846258 E11.9 Chronic di astolic heart failure 900368692 I50.32 Gastroesop hageal reflux disease without esophagitis 241790837 K21.9 Hyperlipidemia 84907248 E78.5 Chronic ob structive pulmonary disease 61937601 J44.9 [id number] Sophie Green MD [facility] (Adult [facility]) [address] [place] [address] 11/14/2024 10:04:58 11/14/2024 11:14:57 Body mass index 30+ - obesity 077235323 Z68.36 Obesity 604747275 E66.9 Essential hypertension 24466930 I10 Type 2 robert betes mellitus 06652790 E11.9 Sinusitis 56508407 J32.9 Gastroesop hageal reflux disease without esophagitis 193428001 K21.9 Chronic ob structive pulmonary disease 48941392 J44.9 Chronic di astolic heart failure 538424330 I50.32 Hyperlipidemia 61184371 E78.5 [id number] Sophie Green MD [facility] [address] [place] [address] 02/12/2025 14:53:46 02/12/2025 16:12:00 Obese class II 0343192013 62189 E66.812 Essential hypertension 18427476 I10 Type 2 robert betes mellitus 68656525 E11.9 Chronic di astolic heart failure 307655621 I50.32 Hyperlipidemia 34330624 E78.5 Chronic rhinitis 0683854 6 J31.0 Chronic ob structive pulmonary disease 24679048 J44.9 Gastroesop hageal reflux disease without esophagitis 722882735 K21.9 Health Concerns Section Related Observation LastModified by Organization Detai ls LastModified Time None Recorded Concern Status LastModified by Organization Details LastModified Time None Recorded Advance Directives Directive Y: Payers Encounter Date Sequence Insurance Name Policy Number Policy Jones Covered Member ID Jones Member ID Guarantor Name 04/23/2024 1 [facility] (MEDICARE REPLACEMENT/AD VANTAGE - HMO) [id number] Jessie Macdonald [id number] Jessie Macdonald 04/23/2024 2 [place] MEDICARE REPLACEMENT PRIMARY) Jessie Macdonald [id number] Jessie Macdonald 06/17/2024 1 [facility] (MEDICARE REPLACEMENT/AD VANTAGE - HMO) [id number] Jessie Macdonald [id number] Jessie Macdonald 06/17/2024 2 [place]ICARE REPLACEMENT PRIMARY) Jessie Alicea Torres [id number] Jessie Macdonald 08/19/2024 1 [facility] (MEDICARE REPLACEMENT/AD VANTAGE - HMO) [id number] Jessie Alicea Torres [id number] Jessie Macdonald 08/19/2024 2 [place] MEDICARE REPLACEMENT PRIMARY) Jessie Alicea Torres [id number] Jessie Alicea Torres 11/14/2024 1 [facility] (MEDICARE REPLACEMENT/AD VANTAGE - HMO) [id number] Jessie Alicea Torres [id number] Jessie Alicea Torres 11/14/2024 2 [place] MEDICARE REPLACEMENT PRIMARY) Jessie Alicea Torres [id number] Jessie Alicea Torres 02/12/2025 1 [facility] (MEDICARE REPLACEMENT/AD VANTAGE - HMO) [id number] Jessie Alicea Torres [id number] Jessie Alicea Torres 02/12/2025 2 [place] MEDICARE REPLACEMENT PRIMARY) Jessie Alicea Torres [id number] Jessie Alicea Torres Notes Date Note Type Note Provider Name and Address Organization Details Recorded Time 04/23/2024 text/html acute appointmen t for a red swollen leg that is painful denies trauma but I she has been working with her 2nd toe on all of this on her right lower extremity Sophie Green MD Attn: Accounting, [address] [place], [address], [facility] - [facility] 04/25/2024 21:41:57 06/17/2024 text/html Diabetes no polyphasia no polydipsia hypertension no headache COPD asthma needs refill of Spiriva . Diastolic heart failure appears to be stable does carry a little bit of water in her legs but they are not been any decompensated cardiopulmonary symptoms. GERD no nausea no vomiting. Her rhinitis is stable . Her chronic dermatitis flared up a little bit she needs a refill of her triamcinolone Sophie Green MD Attn: Accounting, [address] [place], [address], [facility] 07/13/2024 17:48:51 08/19/2024 text/html hypertension no headache or dizziness. Diabetes no polyphagia polydipsia no hypoglycemic spells does not take sugars that often but when she does they are below 150. GERD no nausea or vomiting. Dyslipidemia does try to follow a low-fat diet COPD no cough or wheezing. Stasis dermatitis use of the triamcinolone on that seems to help quite a bit Sophie Green MD Attn: Accounting[address] [place], [address], [place] [facility] 08/23/2024 20:04:29 11/14/2024 text/html Diabetes no polyphasia no polydipsia hypertension no headache COPD asthma needs refill of Spiriva . Diastolic heart failure appears to be stable does carry a little bit of water in her legs but they are not been any decompensated cardiopulmonary symptoms. GERD no nausea no vomiting. Her rhinitis is stable . Her chronic dermatitis flared up a little bit she needs a refill of her triamcinolone Sophie Green MD Attn: Accounting[address] [facility], [place], [address], [facility] 11/15/2024 20:56:04 02/12/2025 text/html Diabetes no polyphasia no polydipsia hypertension no headache COPD asthma needs refill of Spiriva . Diastolic heart failure appears to be stable does carry a little bit of water in her legs but they are not been any decompensated cardiopulmonary symptoms. GERD no nausea no vomiting. Her rhinitis is stable . Her chronic dermatitis flared up a little bit she needs a refill of her triamcinolone Sophie Green MD Attn: Accounting[address] [place], [address], [place] [facility] 02/14/2025 17:53:44 OBGyn Episode No OBEpisode recorded.
[2025-02-17 11:45] LABS: Basophils Absolute Auto 0.1 K/mm3 (0.0-0.1); Basophils Percent Auto 0.4 % (0.2-1.2); Eosinophils Absolute Auto 0.3 K/mm3 (0-0.3); Eosinophils Percent Auto 2.4 % (0-4.4); Hematocrit 41.2 % (37.0-47.0); Hemoglobin 13.2 g/dL (12.0-15.0); Immature Granulocyte Absolute 0.05 K/mm3 (0.00-0.031); Immature Granulocyte Percent A 0.3 % (0-0.5); Lymphocytes Absolute Auto 3.08 K/mm3 (0.9-3.2); Lymphocytes Percent Auto 21.4 % (18.3-44.2); Mean Corpuscular Volume 87.5 fl (80-100); Mean Platelet Volume 9.7 fl (7.4-10.4); Monocytes Percent Auto 6.6 % (2.6-8.5); Neutrophils Absolute Auto 9.9 K/mm3 (1.3-6.7); Neutrophils Percent Auto 68.9 % (45.5-73.1); Platelet Count Result 298 k/mm3 (150-375); Red Blood Count 4.71 M/mm3 (4.2-5.4); Red Cell Distribution Width 14.5 % (11.5-14.5); White Blood Count 14.4 K/mm3 (4.5-10.0)
[2025-02-17 12:42] LABS: Alanine Aminotransferase 26 U/L (6-35); Albumin Level 3.7 g/dL (3.5-5.1); Alkaline Phosphatase 114 U/L (38-126); Anion Gap 7 mmol/L (4-12); Aspartate Amino Transferase 31 U/L (14-36); Bilirubin,Total 0.6 mg/dL (0.2-1.3); Blood Urea Nitrogen 21 mg/dL (7-17); Calcium 9.3 mg/dL (8.4-10.2); Carbon Dioxide 28 mmol/L (22-30); Chloride 107 mmol/L (98-107); Cholesterol 114 mg/dL (0-200); Estimated Glomerular Filt Rate > 60; Glucose 93 mg/dL (65-110); HDL Direct 40 mg/dL; Potassium 3.3 mmol/L (3.4-5.0); Sodium 142 mmol/L (137-145); Triglycerides 110 mg/dL (<150)
[2025-02-17 12:53] LABS: LDL Cholesterol Direct 41 mg/dL
[2025-02-17 13:17] LABS: Hemoglobin A1C 6.2 % (<5.7)
== END 2025-02-17 11:21 | disposition home or self-care (01) ==
LOC: ANHLAB 11:25
PROVIDERS: PCP Internal Medicine; Visit Provider Internal Medicine
DX: E11.9 Type 2 diabetes mellitus without complications (principal); I10 Essential (primary) hypertension
CPT/HCPCS: 36415; 80053; 80061; 83036; 85025

== ENCOUNTER 2025-03-06 11:39 | Outpatient (CLI) | payer MEDICARE, MEDICAID, SELFPAY ==
--- OUTSIDE RECORDS SUMMARY | 2025-03-06 11:43 | XMS_ITS | Clinical Summary ---
Author Organization [facility] Clarita Ashton Address [address] [address] Care Team Providers Care [facility] [employer] Name Role Phone Ren Green MD Primary Care Provider [phone] Allergies Active Allergy Reactions Criticality Noted Date [...] Active Active Problems No known active problems Family History Medical History Relation Name Comments [...] on file Legal Sex Female 3:35 PM [employer] Gender Identity Not on file Sexual Orientation Not on file Last Filed Vital Signs Vital Sign Reading Time Taken Comments Blood Pressure 96/59 10/04/2023 11:23 AM [employer] Pulse 99 10/04/2023 11:23 AM [employer] Temperature 35.9 C (96.6 F) 10/04/2023 11:23 AM [employer]ANT Respiratory Rate 10 10/04/2023 11:23 AM [employer] CONSULTANT Oxygen Saturation 95% 10/04/2023 11:23 AM [employer] CONSULTANT Inhaled Oxygen Concentration - - Weight 94.8 kg (209 lb) 10/04/2023 11:23 AM [employer]SULT[employer] Height - - Body Mass Index - - Plan of Treatment Upcoming Encounters Date Type Department Care Team (Late st Contact Info) Description 03/13/2025 10:30 AM CDT Office Visit [facility] Oncology and Hematology [facility] [address] [facility] [address] [place] [address] Alton Ocampo MD [address] [place] [address] Health Maintenance Due Date Last [...] 2024 1, 07/02/2020, 07/02/2020, Additional history exists [place] ([place]) Preventative Visit/Annual Wellness Visit 09/24/2024 COLORECTAL SCREENING 06/12/2026 06/12/2016 Colorectal Cancer Screening 06/12/2026 PNEUMOCOCCAL VACCINE 50+ YEARS Completed 1 , 01/15/2019, 07/19/2017, Additional history exists Insurance [place] Care Teams [employer] Relationship Specialty Start Date End Date Ren Green MD [address] [place] [id number] PCP - General Internal Medicine 11/09/22
--- OUTSIDE RECORDS SUMMARY | 2025-03-06 11:43 | XMS_ITS | Data Portability ---
Author Organization [place] - [facility] [employer] [facility], Main Office Address [address] [place] [address] Care Team Providers Care Principal Gifts Officer Name Role Phone SOPHIE GREEN Primary Care Provider SOPHIE GREEN Referring Provider Assessment Encounter Date Assessment Date Assessment LastModified by Organization Details LastModified Time 02/21/2024 02/21/2024 This note is dictated and transcribed by [employer]. Patient Care Assistant variances may occur. Despite proofreading, typographical errors may occur. Occasional wrong-word or 'tqzoo-j-oepi' substitutions may have occurred due to the inherent limitations of voice recording. Read the chart carefully and recognize, using context, where substitutions have occurred. Not available 02/21/2024 11:49:04 05/06/2024 05/06/2024 This note is dictated and transcribed by [employer]. Patient Care Assistant variances may occur. Despite proofreading, typographical errors may occur. Occasional wrong-word or 'gonik-w-psda' substitutions may have occurred due to the inherent limitations of voice recording. Read the chart carefully and recognize, using context, where substitutions have occurred. Not available 05/07/2024 09:18:45 07/29/2024 07/29/2024 This note is dictated and transcribed by [employer]. Patient Care Assistant variances may occur. Despite proofreading, typographical errors may occur. Occasional wrong-word or 'loydo-q-palv' substitutions may have occurred due to the inherent limitations of voice recording. Read the chart carefully and recognize, using context, where substitutions have occurred. Not available 07/29/2024 14:32:22 11/05/2024 11/05/2024 This note is dictated and transcribed by [employer]. Patient Care Assistant variances may occur. Despite proofreading, typographical errors may occur. Occasional wrong-word or 'gsbzl-m-ndgn' substitutions may have occurred due to the inherent limitations of voice recording. Read the chart carefully and recognize, using context, where substitutions have occurred. Not available 11/06/2024 08:42:03 02/10/2025 02/10/2025 This note is dictated and transcribed by [employer]. Patient Care Assistant variances may occur. Despite proofreading, typographical errors may occur. Occasional wrong-word or 'hyeaj-d-rtck' substitutions may have occurred due to the [...] skele ton [facility] [address] [place] [address] Patien t Name: CHIKI MACDONALD Access ion #: [id number] Sex: F : 1950 2 Dictat [...] fied by WHO criter ia. Page 1 [facility] [address] [place] [address] Patien t Name: CHIKI MACDONALD Access ion #: [id number] Sex: F : 1950 2 Dictat ed By: Morena Portillo Attend ing Physic rafy: SINAI MORTENSEN [facility] Physic rayf: JULIUS GREEN Exam Date: 2023 12:19 PM [...] 2023 12:38: 41 PM Page 2 [email or web address] [facility] (Imaging) [address] [place], [address], 04/06/2024 10:52:59 04/18/2004/16/2024 MAMMO , scree ben, digit al, bilat eral [facility] [address] [place] [address] Patien t Name: CHIKI MACDONALD Access ion #: [id number] Sex: F : 1950 5 Dictat ed By: Morena Portillo Attend ing Physic rayf: JULIUS GREEN Orderi ng Physic rafy: JULIUS [...] at 2023 13:57: 38 PM Page 1 [email or web address] [facility] (Imaging) [address] [place], [address], 06/05/2024 11:20:59 Result Notes Documentation Provider Name and Address Organization Details Recorded Time Dexa, Axial Skeleton : [facility] [address] [place] [address] Patient Name: DEQUAN MACDONALD Sex: F : 1950 Dictated By: Morena Portillo Attending Physician: SOPHIE GREEN Ordering Physician: SOPHIE GREEN Exam Date: 03/28/2024 12:19 PM Exam Name: XR DEXA-HIPS PELVIS SPINE Admitting Diagnosis(es): INDICATION: 73 years old, Female; post menopausal state. Osteoporosis screening. DEXA SCAN: BONE DENSITY REPORT: AP SPINE (L1-L4) : T Score: 7.0, this is likely over measured due to sclerotic degenerative endplate changes. LEFT HIP TOTAL : T Score: 0.7 RT HIP TOTAL : T Score: 0.2 TOTAL BILAT HIP AVG: T Score: 0.5 10 YEAR FRACTURE RISK* Not provided. IMPRESSION: Normal bone mineral density of the bilateral hips and lumbar spine. --- *FRAX version 3.08. Fracture probability calculated for an untreated patient. Fracture probability may be lower if the patient has received treatment. T-score: comparison by standard deviation (SD) to a young adult population, matched for sex and ethnicity (used for postmenopausal women and men >50 years) and classified by WHO criteria. Page 1 [facility] [address] [place] [address] Patient Name: DEQUAN MACDONALD Sex: F : 1950 Dictated By: Morena Portillo Attending Physician: SINAI BARRIOS Ordering Physician: SOPHIE GREEN Exam Date: 03/28/2024 12:19 PM Exam Name: XR DEXA-HIPS PELVIS SPINE Admitting Diagnosis(es): -1.0: normal <-1.0 to >-2.5: osteopenia -2.5: osteoporosis -2.5 plus fragility fracture: severe osteoporosis Z-score: compared by SD to an age, sex, and ethnicity population (used for premenopausal women, men <50 years, and children instead of T-score WHO criteria 4) <-2.0: below expected range/low bone density for age, and a cause should be sought Page 2 Yancy Colon APRN [address] [facility], [facility] [address], [place], [address], [employer] 04/06/2024 10:52:59 Mammo, Screening, Digital, Bilateral : [facility] [address] [place] [address] Patient Name: DEQUAN MACDONALD Sex: F : 1950 Dictated By: Morena Portillo Attending Physician: SOPHIE GREEN Ordering Physician: SOPHIE GREEN Exam Date: 04/16/2024 12:55 PM Exam Name: MG GRAHAM MAMMO MARIA GUADALUPE BOWEN Admitting Diagnosis(es): CLINICAL INDICATION: Screening COMPARISON STUDY: 04/25/21; 10/16/19 TECHNIQUE: Using a full field digital 2D mammography unit CC and MLO views of both breasts are performed. FINDINGS: BREAST COMPOSITION: B - There are scattered areas of fibroglandular density in the bilateral breasts. No suspicious masses, architectural distortion, asymmetries or suspicious calcifications in both breasts. IMPRESSION: No evidence of malignancy. FOLLOWUP RECOMMENDATION: Recommend annual mammogram. BIRADS: 2 - Benign Page 1 Selin vuong [employer] 06/05/2024 11:20:59 Problems Name Problem SNOMED Code Status Onset Date Resolution Date Notes Provider Name and Address Organization Details Recorded Time Metatarsa lgia 07480507 Completed 201810/01/2019 Not Available [facility] 3 01:18:01 Paronychi a of toe of right foot 78163865008 908355 Active 2020 Not Available [facility] 3 20:40:18 Paronychi a of toe of right foot 66474162554 394358 Completed 201910/14/2020 Not Available [facility] 3 01:18:01 History of diabetic foot ulcer 27980001985 482987 Active 2020 Not Available [facility] 3 20:40:18 Leukocyto sis 892389959 Active 2022 Not Available [facility] 3 20:40:18 Hammer toe 052429843 Active 2017 Howard Hauser DPM [address], [place], [address] , [employer] 5 13:50:00 Hammer toe 904142396 Active 2020 Not Available [facility] 3 20:40:18 Postopera tive care Active 2021 Not Available [facility] 3 20:40:18 Hyperchol esterolem ia 85777478 Active 2017 Not Available [facility] 3 20:40:18 Pain of right shoulder joint 68919110322 973106 Active 2021 Not Available [facility] 3 20:40:18 White blood cell count outside reference range 054717830 Active 2022 Not Available [facility] 3 20:40:18 Asthma 404622801 Active 2017 Not Available [facility] 3 20:40:18 Callosity on toe 205321191 Active 2017 Hwoard Hauser DPM [address], [address], [place], [address] , [employer] 5 13:49:48 Abdominal pain 69122690 Active 2021 Not Available [facility] 3 20:40:18 Neuropath y due to diabetes mellitus 767664268 Active 2017 Not Available [facility] 3 20:40:18 Ankle pain 680204334 Completed 201810/14/2020 Not Available [facility] 3 01:18:02 Unable to cut own toenails 798600183 Active 2021 Not Available [facility] 3 20:40:18 Ulcer of toe 366697007 Active 2020 Not Available [facility] 3 20:40:18 Ulcer of toe 662309087 Completed 201710/01/2019 Not Available [facility] 3 01:18:02 Ulcer of toe 777913565 Active 2021 Not Available [facility] 3 20:40:18 Type 2 diabetes mellitus without complicat ion 330919382 Active 2021 Not Available [facility] 3 20:40:18 Sinusitis 48616052 Active 2021 Not Available [facility] 3 20:40:18 Disorder of eye 764276409 Active 2017 Not Available [facility] 3 20:40:18 Arthritis 9587465 Active 2017 Not Available [facility] 3 20:40:18 Hypertens anu disorder 48522083 Active 2017 Not Available [facility] 3 20:40:18 Neuropath y 070701838 Active 2021 Not Available [facility] 3 20:40:18 Vertigo 945618453 Active 2021 Not Available [facility] 3 20:40:18 Periphera l arterial occlusive disease 062488693 Active 2017 Not Available [facility] 3 20:40:18 Onychomyc osis of toenails 385582628 Active 2020 Not Available [facility] 3 20:40:18 Lymphedem a of lower extremity 519519940 Active 2017 Not Available [facility] 3 20:40:18 Dizziness 100415214 Active 2017 Not Available [facility] 3 20:40:18 Obesity 347468761 Active 2017 Not Available [facility] 3 20:40:19 Diabetic periphera l neuropath y 496913983 Active 2017 Not Available [facility] 3 20:40:19 Avulsion of toenail 743511548 Completed 201810/01/2019 Not Available [facility] 3 01:18:03 Pressure ulcer of toe of left foot stage 1 Active 2020 Not Available [facility] 3 20:40:19 Pain of right knee joint 80982212389 4100 Active 2021 Not Available [facility] 3 20:40:19 Foot pain 76536571 Completed 201810/01/2019 Not Available [facility] 3 01:18:04 Coronary arteriosc lerosis 24633743 Active 2017 Not Available [facility] 3 20:40:19 Blister of toe without infection 93942916 Completed 201810/01/2019 Not Available [facility] 3 01:18:04 Hyperlipi demia 61496005 Active 2017 Not Available [facility] 3 20:40:19 Essential hypertens ion 26280550 Active 2017 Not Available [facility] 3 20:40:19 Diabetes mellitus 08548353 Active 2017 Not Available [facility] 3 20:40:19 Sleep apnea 77525812 Active 2017 Not Available [facility] 3 20:40:19 Sebaceous cyst of skin 702346580 Active 2021 Not Available [facility] 3 20:40:19 Leukopeni a 58269195 Active 2022 Not Available [facility] 3 20:40:19 Cardiomyo betzy 87310873 Active 2021 Not Available [facility] 3 20:40:19 Disorder of intestine 83859148 Active 2017 Not Available [facility] 3 20:40:19 Dystrophi a unguium 09565033 Active 2021 Howard Hauser, DPM [address] [facility], [address], [place], [address] , [employer] 5 13:50:24 Dystrophi a unguium 63396078 Completed 201810/14/2020 Howard Hauser DPM [address], [place], [address] , [employer] [facility] [employer] 5 13:50:24 Type 2 diabetes mellitus 41835576 Active 2022 Not Available [facility] 3 20:40:19 Open wound of toe 102798068 Active 2022 Not Available [facility] 3 20:40:18 Hammer toe 506515961 Active 2022 Not Available [facility] 3 20:40:18 Skin ulcer of toe due to diabetes mellitus type 2 72423280555 756946 Active 2022 Not Available [facility] 3 20:40:18 Open wound of toe 696729641 Active 2023 Howard Hauser DPM [address], [address], [place], [address] , [employer] 4 09:32:41 Acquired right mallet toe 15570580220 715925 Active [address], [place], [address] , [employer] 4 13:02:46 Notes:Some problems listed i n Documents: #[id number], #[id number] could not be added to this patient's chart. Please review these documents and add these problems to the patient's chart manually as needed. Problem Notes None recorded. Procedures Surgical History Date Name Laterality Status Provider Name and Address Organization Details Recorded Time 025 Nail Debridement completed Howard Hauser DPM [address], [address], [place], [address], [employer] [facility] [employer] 02/10/2025 13:47:29 025 Callus Debridement 2-4 completed Howard Hauser DPM [address], [address], [place], [address], [facility] 02/10/2025 13:47:18 025 Nail Debridement completed Howard Hauser DPM [address], [address], [place], [address], [facility] 11/06/2024 08:37:15 025 Callus Debridement 2-4 completed Howard Hauser DPM [address], [address], [place], [address], [facility] 11/06/2024 08:37:19 024 Nail Debridement completed Howard Hauser DPM [address], [address], [place], [address], [facility] 07/29/2024 14:30:29 024 Blank Procedure Note completed Howard Hauser DPM [address], [address], [place], [address], [facility] 07/29/2024 14:34:38 024 Callus Debridement, One completed Howard Hauser DPM [address], [address], [place], [address], [facility] 07/29/2024 14:31:14 024 Nail Debridement completed Howard Hauser DPM [address], [address], [place], [address], [facility] 05/07/2024 09:19:46 024 Callus Debridement, One completed Howard Hauser DPM [address], [address], [place], [address], [facility] 05/07/2024 09:18:04 024 Flexor Tenotomy completed Howard Hauser DPM [address], [address], [place], [address], [facility] 02/12/2024 13:58:36 024 Callus Debridement 2-4 completed Howard Hauser DPM [address], [address], [place], [address], [facility] 02/12/2024 14:01:29 024 Nail Debridement completed Howard Hauser DPM [address], [address], [place], [address], [facility] 11/15/2023 09:32:26 024 Wound Care-Podiatry completed Howard Hauser DPM [address], [address], [place], [address], [facility] 11/13/2023 14:07:43 023 Nail Debridement completed Howard Hauser DPM [address], [address], [place], [address], [facility] 08/07/2023 14:55:36 023 Wound Care-Podiatry completed Howard Hauser DPM [address], [address], [place], [address], [facility] 08/07/2023 14:55:22 023 Callus Debridement, One completed Howard Hauser DPM [address], [place], [address], [facility] 08/07/2023 14:55:59 023 Nail Debridement completed Howard Hauser DPM [address], [address], [place], [address], [facility] 04/26/2023 16:01:34 023 Wound Care-Podiatry completed Howard Hauser DPM [address], [address], [place], [address], [facility] 04/26/2023 16:01:13 023 Callus Debridement, One completed Howard Hauser DPM [address], [address], [place], [address], [facility] 04/26/2023 16:02:47 023 Nail Debridement completed Howard Hauser DPM [address], [place], [address], [facility] [employer] [facility] 01/25/2023 12:33:07 023 Callus Debridement 2-4 completed Howard Hauser DPM [address], [place], [address], [facility] [employer] [facility] 01/25/2023 12:32:58 019 Most Recent Bone Density completed Not Available [facility] 11/22/2022 01:12:00 016 Date of Last Colonoscopy completed Not Available [facility] 11/22/2022 01:12:00 016 Colon ca scrn not hi rsk ind completed Not Available [facility] 11/22/2022 01:12:02 Hysterectomy completed Not Available [facility] 11/22/2022 01:12:02 Gastrointestinal Surgery completed Not Available [facility] 11/22/2022 01:12:02 Tonsillectomy completed Not Available [facility] 11/22/2022 01:12:02 Appendectomy completed Not Available [facility] 11/22/2022 01:12:02 Imaging Results None recorded. Procedure Notes None recorded. Medical Equipment None Reported. Allergies Allergen ID Allergen Name Allergen Category Reaction Reaction Severity Criticality Documentation Date Start Date Code Code System Note Provider Name and Address Organization Details Recorded Time 2331 Ultram medicatio n dizziness nausea Not available Not available Not available 11/22/2022 98912 6 RxNorm Not Available [facility] 3 01:25:00 2332 pantopraz ole medicatio n diarrhea severe Not available 11/22/2022 67017 RxNorm Not Available [facility] 3 01:25:00 2333 nickel environme nt rash Not available Not available 11/22/2022 06073 29 RxNorm Not Available [facility] 3 01:25:00 2334 mold extract environme nt other Not available Not available 11/22/2022 24459 8 RxNorm sinus drain age Not Available [facility] 3 01:25:01 2335 Levaquin medicatio n rash Not available Not available 11/22/2022 86300 2 RxNorm Not Available [facility] 3 01:25:01 2336 kiwi fruit extract food edema Not available Not available 11/22/2022 90713 01 RxNorm Not Available [facility] 3 01:25:01 2337 hydrocodo ne Not available vomiting Not available Not available 11/22/2022 5489 RxNorm high dose Not Available [facility] 3 01:25:01 2338 hydrochlo rothiazid e medicatio n hives Not available Not available 11/22/2022 5487 RxNorm Not Available [facility] 3 01:25:01 2339 Gyne-Lotr imin medicatio n hives Not available Not available 11/22/2022 57558 5 RxNorm Not Available [facility] 3 01:25:01 2340 gabapenti n medicatio n dizziness Not available Not available 11/22/2022 37474 RxNorm Not Available [facility] 3 01:25:01 2341 Dilaudid medicatio n dizziness Not available Not available 11/22/2022 53901 3 RxNorm Not Available [facility] 3 01:25:02 2342 Acetamino phen / Propoxyph milena medicatio n respirato ry distress Not available Not available 11/22/2022 38834 RxNorm Not Available [facility] 3 01:25:02 2343 cyclobenz aprine medicatio n dizziness Not available Not available 11/22/2022 73619 RxNorm Not Available [facility] 3 01:25:02 2344 Celebrex medicatio n respirato ry distress Not available Not available 11/22/2022 20970 7 RxNorm Not Available [facility] 3 01:25:02 2345 cefdinir medicatio n Not available Not available Not available 11/22/20222018 57363 RxNorm Not Available [facility] 3 01:25:02 2346 Azopt medicatio n eye redness Not available Not available 11/22/2022 37338 2 RxNorm Not Available [facility] 3 01:25:02 2347 azithromy luz medicatio n diarrhea severe Not available 11/22/2022 30825 RxNorm Not Available [facility] 3 01:25:02 2348 Augmentin medicatio n diarrhea vomiting severe moderate Not available 11/22/20222021 81581 2 RxNorm Not Available [facility] 3 01:25:03 2349 Altace medicatio n hives Not available Not available 11/22/2022 98934 8 RxNorm Not Available [facility] 3 01:25:03 2350 Alphagan medicatio n eye redness Not available Not available 11/22/2022 28752 8 RxNorm Not Available [facility] 3 01:25:03 2351 adhesive tape environme nt,medica tion hives Not available Not available 11/22/2022 51736 UNK Not Available [facility] 3 01:25:03 Medications Name Sig Start Date [...] azelastine 137 mcg (0.1 %) nasal spray [place] 2 sprays twice a day by intranasa [...] Not Available No t Available Fluzone High-Dose (PF) 180 mcg/0.5 mL intramuscul ar syringe [...] Not Available Not Available No t Available Jerryxela [employer] 05/16 completed Not Available Not Available Not Available Rocklatan 0.02 %-0.005 % eye drops INSTILL 1 DROP IN BOTH EYES AT BEDTIME FOR 30 TO 90 DAYS active Not Available Not Available No t Available BD Melani 2nd Gen Pen Needle 32 gauge x USE DAILY active Not Available Not Available [...] Not Available Not Available No t Available [facility] COVID-19 Antigen Rapid Home Test kit DIRECTED 05/16 completed Not Available Not Available Not Available Ozempic 0.25 mg or 0.5 mg (2 mg/3 mL) subcutaneou s pen injector INJECT 0.5 MG UNDER THE SKIN EVERY WEEK 02/11 completed Not Available Not Available Not Available Klayesta 100,000 unit/gram topical powder APPLY TOPICALLY TO THE AFFECTED AREA TWICE DAILY active Not Available Not Available No t Available Vitals Date Recorded Body height Body mass index (BMI) Body weight Heart rate Respiratory rate Oxygen saturation Oxygen saturation in Arterial blood by Pulse oximetry Systolic blood pressure Diastolic blood pressure Provider Name and Address Organization Details Last Updated DateTime 5 165.1 cm 35.3 kg/m2 66535.5 8 g 98 /min 14 /min 98 % 98 % 103 mm[Hg] 49 mm[Hg] Zarina Pena [employer] [facility] 5 14:33:06 Date Recorded Body height Body mass index (BMI) Body weight Provider Name and Address Organization Details Last Updated DateTime 02/10/2025 165.1 cm 35.3 kg/m2 28119.58 g Josué De La PazADEFabi [facility] 02/10/2025 11:18:05 Date Recorded Heart rate Respiratory rate Oxygen saturation Oxygen saturation in Arterial blood by Pulse oximetry Systolic blood pressure Diastolic blood pressure Provider Name and Address Organization Details Last Updated DateTime 5 86 /min 14 /min 98 % 98 % 106 mm[Hg] 57 mm[Hg] Zarina Pena [employer] [facility] 5 11:22:39 Date Recorded Body height Body mass index (BMI) Body weight Heart rate Respiratory rate Oxygen saturation Oxygen saturation in Arterial blood by Pulse oximetry Systolic blood pressure Diastolic blood pressure Provider Name and Address Organization Details Last Updated DateTime 4 165.1 cm 35.3 kg/m2 37239.5 8 g 100 /min 14 /min 98 % 98 % 88 mm[Hg] 55 mm[Hg] Zarina Pena [employer] [facility] 4 11:31:10 Date Recorded Body height Body mass index (BMI) Body weight Heart rate Respiratory rate Body temperature Oxygen saturation Oxygen saturation in Arterial blood by Pulse oximetry Systolic blood pressure Diastolic blood pressure Provider Name and Address Organization Details Last Updated DateTime 4 165.1 cm 35.3 kg/m2 25816.5 8 g 90 /min 18 /min 98.3 [degF] 98 % 98 % 140 mm[Hg] 80 mm[Hg] Ana Chang [employer] [facility] [employer] 4 17:15:47 Date Recorded Body height Body mass index (BMI) Body weight Heart rate Respiratory rate Oxygen saturation Oxygen saturation in Arterial blood by Pulse oximetry Systolic blood pressure Diastolic blood pressure Provider Name and Address Organization Details Last Updated DateTime 4 165.1 cm 35.3 kg/m2 11984.5 8 g 68 /min 14 /min 98 % 98 % 107 mm[Hg] 63 mm[Hg] Zarina Pena [place] - [facility] 4 12:45:57 Social History Question Answer Notes LastModified by Organizat ion Details LastModified Time Tobacco Smoking Status Never Smoker Not Available [employer] 11/22/2022 01:11:26 Do You Have An Advance Directive? Yes MIGRATION.42864 21011 Information not available 11/22/2022 Are You Blind Or Do You Have Difficulty Seeing? No MIGRATION.81639 05925 Information not available 11/22/2022 What Is Your Level Of Caffeine Consumption? None MIGRATION.96043 18942 Information not available 11/22/2022 How Much Tobacco Do You Chew? None MIGRATION.77735 83684 Information not available 11/22/2022 In The 14 Days Before Symptom Onset, Have You Had Close Contact With A Laboratory-confi rmed COVID-19 While That Case Was Ill? No MIGRATION.69887 83488 Information not available 11/22/2022 In The 14 Days Before Symptom Onset, Have You Had Close Contact With A Person Who Is Under Investigation For COVID-19 While That Person Was Ill? No MIGRATION.68641 85001 Information not available 11/22/2022 Are You Deaf Or Do You Have Serious Difficulty Hearing? No MIGRATION.15589 70353 Information not available 11/22/2022 What Type Of Diet Are You Following? REGULAR MIGRATION.18347 02241 Information not available 11/22/2022 Which Illicit Or Recreational Drugs Have You Used? None MIGRATION.63473 10397 Information not available 11/22/2022 What Is The Highest Grade Or Level Of School You Have Completed Or The Highest Degree You Have Received? [id number] MIGRATION.14965 48604 Information not available 11/22/2022 Have There Been Any Changes To Your Family Or Social Situation? No MIGRATION.19250 53893 Information not available 11/22/2022 What Is The Fluoride Status Of Your Home? Unknown MIGRATION.05746 43885 Information not available 11/22/2022 Are There Any Guns Present In Your Home? No MIGRATION.43332 91053 Information not available 11/22/2022 Do You Use Insect Repellent Routinely? No MIGRATION.11054 36355 Information not available 11/22/2022 Where Do You Live? SingleLevelHouse MIGRATION.16021 56502 Information not available 11/22/2022 Do You Have A Medical Power Of Zoology Professor? Yes MIGRATION.65853 14176 Information not available 11/22/2022 What Was The Date Of Your Most Recent Tobacco Screening? 02/10/2025 levar Information not available 02/10/2025 Do You Have Any Pets? No MIGRATION.31895 87491 Information not available 11/22/2022 What Is Your Relationship Status? Single MIGRATION.26729 71783 Information not available 11/22/2022 Do You Use Your Seat Belt Or Car Seat Routinely? Yes MIGRATION.55965 71772 Information not available 11/22/2022 Do You Have Smoke And Carbon Monoxide Detectors In Your Home? Yes MIGRATION.14671 41567 Information not available 11/22/2022 Are You Passively Exposed To Smoke? No MIGRATION.71621 61679 Information not available 11/22/2022 Are There Any Smokers In Your House? No MIGRATION.72510 23640 Information not available 11/22/2022 How Much Tobacco Do You Smoke? No MIGRATION.78045 57127 Information not available 11/22/2022 What Types Of Sporting Activities Do You Participate In? None MIGRATION.86596 71875 Information not available 11/22/2022 Do You Use Sunscreen Routinely? Yes MIGRATION.83791 34461 Information not available 11/22/2022 Has Tobacco Cessation Counseling Been Provided? No Not Needed-ne daria Smoked MIGRATION.64876 91922 Information not available 11/22/2022 How Many Years Have You Smoked Tobacco? 0 MIGRATION.11104 80170 Information not available 11/22/2022 Have You Recently Traveled Abroad? No MIGRATION.77390 25810 Information not available 11/22/2022 Do You Have Difficulty Walking Or Climbing Stairs? Yes MIGRATION.50889 04583 Information not available 11/22/2022 Do You Have Any Dietary Restrictions? No MIGRATION.56514 71904 Information not available 11/22/2022 Sex: Female Functional Status Question Answer Note LastModified by Organizat ion Details LastModified Time Do you use any illicit or recreational drugs? No MIGRATION.37718 87143 Information not available 11/22/2022 Do you or have you ever used any other forms of tobacco or nicotine? No MIGRATION.51929 50816 Information not available 11/22/2022 What is your level of alcohol consumption? None MIGRATION.61657 91354 Information not available 11/22/2022 Do you or have you ever used smokeless tobacco? Never used smokeless tobacco MIGRATION.62589 37249 Information not available 11/22/2022 Do you have transportation difficulties? No MIGRATION.55338 14001 Information not available 11/22/2022 Are you able to walk? YESASSIST uses walker MIGRATION.02395 34265 Information not available 11/22/2022 Do you have difficulty doing errands alone? No MIGRATION.79229 92987 Information not available 11/22/2022 Are you able to care for yourself? Yes MIGRATION.63700 29262 Information not available 11/22/2022 What is your occupation? disabled MIGRATION.55236 56113 Information not available 11/22/2022 Do you have difficulty dressing or bathing? Yes MIGRATION.87893 95435 Information not available 11/22/2022 Do you or have you ever used e-cigarettes or vape? Never used electronic cigarettes MIGRATION.33708 27711 Information not available 11/22/2022 What is your exercise level? None MIGRATION.09406 99948 Information not available 11/22/2022 Mental Status Question Answer Note LastModified by Organizat ion Details LastModified Time Do you feel stressed (tense, restless, nervous, or anxious, or unable to sleep at night)? [id number] MIGRATION.59089860 26 Information not available 11/22/2022 Do you have difficulty concentrating, remembering or making decisions? No MIGRATION.39894346 26 Information not available 11/22/2022 Family History Relationship Description Onset Age of this Age Resolved Age Notes LastModified by Organization Details LastModified Time Mother Chronic obstructive pulmonary disease MIGRATION.945 [id number] Not available 11/22/2022 01:12:07 Mother Hypertensive disorder MIGRATION.883 [id number] Not available 11/22/2022 01:12:07 Mother Glaucoma MIGRATION.327 3351305 Not available 11/22/2022 01:12:07 Mother Diabetes mellitus MIGRATION.077 1162829 Not available 11/22/2022 01:12:07 Father Diabetes mellitus MIGRATION.257 8665672 Not available 11/22/2022 01:12:07 Father Heart disease MIGRATION.341 8248284 Not available 11/22/2022 01:12:07 Maternal Grandfather Diabetes mellitus MIGRATION.542 1661714 Not available 11/22/2022 01:12:07 Paternal Grandmother Diabetes mellitus MIGRATION.788 [id number] Not available 11/22/2022 01:12:07 Sister Glaucoma MIGRATION.088 3072734 Not available 11/22/2022 01:12:07 Medical History Condition [...] HAVE YOU BEEN HOSPITALIZED OR SEEN IN [facility] IN THE PAST YEAR ? N [...] mL dose 1 completed Not Available [facility] 09/10/2023 20:40:19 COVID-19, mRNA, LNP-S, PF, 30 mcg/0.3 mL dose 1 completed Not Available [facility] 09/10/2023 20:40:19 Influenza, high-dose, trivalent, PF 0 completed Not Available [facility] 09/10/2023 20:40:20 Influenza, split virus, quadrivalent, preservative 9 completed Not Available [facility] 09/10/2023 20:40:19 pneumococcal polysaccharide PPV23 9 completed Not Available [facility] 09/10/2023 20:40:19 zoster recombinant 8 completed Not Available [facility] 09/10/2023 20:40:19 Pneumococcal conjugate PCV 13 7 completed Not Available [facility] 09/10/2023 20:40:20 tetanus toxoid, unspecified formulation 2 completed Not Available [facility] 09/10/2023 20:40:19 COVID-19, mRNA, LNP-S, PF, 30 mcg/0.3 mL dose 1 completed Not Available [facility] 09/10/2023 20:40:19 Influenza, high-dose, trivalent, PF 7 completed Not Available [facility] 09/10/2023 20:40:20 Influenza, high-dose, quadrivalent, PF 1 completed Not Available [facility] 09/10/2023 20:40:19 pneumococcal polysaccharide PPV23 9 completed Not Available [facility] 09/10/2023 20:40:19 Influenza, high-dose, trivalent, PF 8 completed Not Available [facility] 09/10/2023 20:40:20 Past Encounters Encounter ID Performer Location Encounter Start Date Encounter Closed Date Diagnosis/Indication Diagnosis SNOMED-CT Code Diagnosis ICD10 Code Diagnosis Note [id number] Sophie Green MD [facility] Internal Med [facility] 15 [address] [facility] [address] [place] [address] 12/15/2020 00:00:00 12/19/2020 17:11:31 [id number] [facility]_M IGRATION_ DEFAULT_1 _1 , 12/31/2020 00:00:00 12/31/2020 11:51:02 [id number] Howard Hauser DPM [facility] [place] [address] [place] [id number] 0 01/13/2021 00:00:00 01/13/2021 13:46:08 [id number] Howard Hauser DPM [facility] [address] [address] 04/14/2021 00:00:00 04/14/2021 12:34:24 [id number] Sophie Green MD [facility] Internal Med [facility] [address] [place] [address] 1 04/20/2021 00:00:00 04/24/2021 20:50:30 [id number] Howard Hauser DPM [facility] [place] [address] [place] [address] 0 07/14/2021 00:00:00 07/14/2021 11:18:00 [id number] Sophie Green MD [facility] Internal Med [facility] [address] [place] [address] 1 07/20/2021 00:00:00 07/30/2021 21:00:17 [id number] Howard Hauser DPM [facility] [place] [address] [place] [address]92[address]470 0 07/21/2021 00:00:00 07/21/2021 12:19:40 [id number] Howard Hauser DPM [facility] [place] [address] [place] [address] 0 07/28/2021 00:00:00 07/28/2021 17:45:52 [id number] Howard Hauser DPM [facility] [place] [address] [place] [address] 0 08/04/2021 00:00:00 08/08/2021 08:50:32 [id number] [facility] [address] [place] [id number] 0 08/23/2021 00:00:00 08/23/2021 16:13:47 [id number] Sophie Green MD [facility] Internal Med [facility] [address] [place] [address] [address] 1 08/24/2021 00:00:00 09/11/2021 21:40:21 [id number] [facility] [address] [place] [address] 0 10/13/2021 00:00:00 10/13/2021 12:16:02 [id number] Sophie Green MD [facility] Internal Med [facility] [address] [address] 1 10/19/2021 00:00:00 10/19/2021 21:37:55 [id number] [facility] [address] [place] [address] 0 10/20/2021 00:00:00 10/20/2021 17:21:07 [id number] [facility] [address] [place] [address] 0 10/25/2021 00:00:00 11/03/2021 13:23:18 [id number] Howard Hauser DPM [facility] [place] [address] [place] [address]781[address]824 0 11/07/2021 00:00:00 11/07/2021 12:20:14 [id number] Howard Hauser DPM [facility] [place] [address] [place] [address]130[address]553 0 11/14/2021 00:00:00 11/14/2021 12:46:10 [id number] Howard Hauser DPM [facility] [place] [address] [place] [address] [id number] 0 11/21/2021 00:00:00 11/21/2021 11:46:51 [id number] Howard Hauser DPM [facility] [place] [address] [place] [id number] 0 12/12/2021 00:00:00 12/12/2021 12:19:50 [id number] Howard Hauser DPM [facility] [place] [address] [place] [id number] 0 12/26/2021 00:00:00 12/26/2021 15:17:08 [id number] Howard Hauser DPM [facility] [place] [address] [place] [id number] 0 01/02/2022 00:00:00 01/20/2022 14:32:58 [id number] [facility] [address] [place] [id number] 0 01/09/2022 00:00:00 01/17/2022 22:52:13 [id number] Howard Hauser DPM [facility] [place] [address] [place] [id number] 0 01/16/2022 00:00:00 01/16/2022 21:54:23 [id number] Howard Hauser DPM [facility] [place] [address] [place] [id number] 0 01/26/2022 00:00:00 01/26/2022 15:19:09 [id number] Sophie Green MD [facility] [place] [address] [address] [address] 1 02/15/2022 00:00:00 02/15/2022 22:14:08 [id number] Howard Hauser DPM [facility] [place] [address] [place] [id number] 0 04/27/2022 00:00:00 04/27/2022 12:46:18 [id number] Sophie Green MD [facility] Internal Med [facility] [address] [place] [address] 1 05/17/2022 00:00:00 05/18/2022 08:04:41 [id number] Howard Hauser DPM [facility] Podiatry [address] [address] 0 08/02/2022 00:00:00 08/08/2022 11:09:55 [id number] Sophie Green MD [facility] Internal Med [facility] [address] [place] [address] 1 09/08/2022 00:00:00 09/08/2022 21:56:24 [id number] Howard Hauser DPM [facility] Podiatry [address] [address] 0 10/26/2022 00:00:00 10/26/2022 14:04:51 [id number] Sophie Green MD [facility] Internal Med [facility] [address] [place] [address] 1 01/12/2023 11:01:53 01/12/2023 11:54:06 Diabetes mellitus 78561535 E11.9 Essential hypertension 43038629 I10 Diabetic p eripheral neuropathy 639747520 E11.42 Hypercholesterolemia 136 87393 E78.00 Leukocytosis 060636472 D 72.829 [id number] Howard Hauser DPM S_G Podiatry [address] [address] 0 01/25/2023 11:40:19 01/25/2023 12:35:41 Dystrophia unguium 55662487 L60.3 Nails 1 through 10 were debrided with sharp mechanical debridemen t without incident. Nails were debrided and greater than 50% length and thickness where needed. Hammer toe 707824788 M20 .41 Continue offloading with conservati ve therapy and diabetic shoe gear Diabetic p eripheral neuropathy 582372517 E11.42 Patient educated on neuropathy , diabetes, [...] immediatel y Unable to cut own toenails 614683091 Z74.1 [id number] Howard Hauser DPM [facility] [place] [address] [address] 04/26/2023 15:46:00 04/30/2023 11:04:57 Open wound of toe 862424563 S91.104A right 2nd toedebride d per notewound care reviewed with the patientFol low up in 1 week for wound care Dystrophia unguium 47689 009 L60.3 Nails 1 through 10 were debrided with sharp mechanical debridemen t without incident. Nails were debrided and greater than 50% length and thickness where needed. Neuropathy due to diabetes mellitus 876351525 E11.42 continue diabetic shoe gear and insoles Hammer toe 435668808 M20 .41 Continue offloading with conservati ve therapy and diabetic shoe gear Callosity on toe 20100101 01 L84 Debrided without incidentLe ft great toe and 2nd toeContinu e offloading with diabetic shoes and insolesMon itor for wounds daily if presents to medical attention immediatel y [id number] Howard Hauser DPM [facility] Pod[facility] [place] [address] [address] 05/01/2023 10:18:50 05/01/2023 11:09:20 Open wound of toe 153801845 S91.104A right 2nd toe - improved by approximat bre 50%patient did not obtain x-rays recommend obtainingc ontinue daily wound care with gentamicin ointmentwo und care reviewed with the patientFol low up in 1 week for wound care Hammer toe 213361758 M20 .41 Continue offloading with conservati ve therapy and diabetic shoe gear [id number] Sophie Green MD [facility] Internal Med [facility] 2043 [facility] [address] [address] 05/16/2023 11:17:01 05/16/2023 12:47:45 Diabetes mellitus 83900542 E11.9 Asthma 773652404 J45.90 9 Essential hypertension 99563614 I10 Hypercholesterolemia 136 91958 E78.00 Neuropathy 522411541 G62 .9 [id number] Sophie Green MD [facility] Internal Med [facility] 2043 [facility], [address] [address] 07/09/2023 11:04:56 07/09/2023 13:10:54 Diabetes mellitus 46672283 E11.9 Coronary arteriosclerosis 73888453 I25.10 Pre-surger y evaluation 758076116 Z01.204 [id number] Howard Hauser DPM [facility] Podiat[facility] [place] [address] [address] 08/07/2023 12:09:07 08/07/2023 16:25:10 Diabetic peripheral neuropathy 592573250 E11.42 Patient educated on neuropathy , diabetes, diabetic diet, and daily foot exams. Patient is to check feet daily for new wounds, blisters, redness to prevent infection and ulceration s to the feet. Patient will return to clinic in 3 months for diabetic foot workup. Dystrophia unguium 78594 009 L60.3 Nails 1 through 10 were debrided with sharp mechanical debridemen t without incident. Nails were debrided and greater than 50% length and thickness where needed. Skin ulcer of toe due to diabetes mellitus type 2 7092023940 0382907 E11.621 right 2nd toedebride d without incidentco ntinue offloading daily wound care to prevent infectionf ollow-up 2 weeks if not healed [id number] Sophie Green MD [facility] Internal Med [facility] 2043 [facility] [address] [address] 1 09/12/2023 11:07:05 09/12/2023 12:41:29 Diabetes mellitus 13466128 E11.9 Neuropathy due to diabetes mellitus 212143496 E11.42 Coronary arteriosclerosis 60984434 I25.10 Essential hypertension 45561277 I10 Hyperlipidemia 37600613 E78.5 [id number] Howard Hauser DPM [facility] Podiat[facility] [place] [address] [place] [address] 0 11/13/2023 12:12:37 11/15/2023 09:40:56 Diabetic peripheral neuropathy 001087266 E11.42 Patient educated on neuropathy , diabetes, diabetic diet, and daily foot exams. Patient is to check feet daily for new wounds, blisters, redness to prevent infection and ulceration s to the feet. Patient will return to clinic in 3 months for diabetic foot workup. Dystrophia unguium 26394 009 L60.3 Nails 1 through 10 were debrided with sharp mechanical debridemen t without incident. Nails were debrided and greater than 50% length and thickness where needed. Open wound of toe 739998 002 S91.104A right 2nd toe - improved by approximat bre 50%patient did not obtain x-rays [facility] wound care with gentamicin ointmentwo und care reviewed with the patientFol low up in 1 week for wound care [id number] Howard Hauser DPM [facility] Podiat[facility] [place] [address] [place] [address] 0 02/12/2024 12:31:51 02/12/2024 14:14:07 Acquired right mallet toe 1943678184 7850361 M20.5X1 right secondflex or tenotomy today, right second toedressin gs reviewedre turn in 10 days for follow up Ulcer of toe 250850697 L 97.509 right 2nd toewound debrided without incidentda prosper wound care with betadine wet to dry dressingso ffloading all timesfollo w-up in 1-2 weeks Dystrophia unguium 62394 009 L60.3 Nails 1 through 10 were debrided with sharp mechanical debridemen t without incident. Nails were debrided and greater than 50% length and thickness where needed. Callosity on toe 20100101 01 L84 Debrided without incidentbi lateral 2nd toeContinu e offloading with diabetic shoes and insolesMon itor for wounds daily if presents to medical attention immediatel y Neuropathy due to diabetes mellitus 469757227 E11.42 continue diabetic shoe gear and insolescon tinue diabetes management per PCP recommenda tions [id number] Howard Hauser DPM [facility] Pod[facility] [place] [address] [address] 02/21/2024 11:25:46 02/21/2024 11:53:53 Skin ulcer of toe due to diabetes mellitus type 2 8555754930 3240069 E11.621 right 2nd toeHealedf ollow-up 3 months Postoperative care 49876 9007 Z48.89 follow-up flexor tenotomy right 2nd toeplantar loading rectus 2nd toe, rightincis ion area healedcont inue diabetic shoes and insoles [id number] Howard Hauser DPM [facility] Pod[facility] [place] [address] [address] 05/06/2024 17:08:48 05/21/2024 14:10:32 Diabetes mellitus 47357679 E11.9 Continue diabetic control per PCP recommenda tion Neuropathy due to diabetes mellitus 984915135 E11.42 continue diabetic shoe gear and insolescon tinue diabetes management per PCP recommenda tions Callosity on toe 20100101 L84 Debrided without incidentri ght 2nd toeContinu e offloading with diabetic shoes and insolesMon itor for wounds daily if presents to medical attention immediatel y Dystrophia unguium 68014 009 L60.3 Nails 1 through 10 were debrided with sharp mechanical debridemen t without incident. Nails were debrided and greater than 50% length and thickness where needed. [id number] Howard Hauser DPM [facility] Pod[facility] [place] [address] [address] 0 07/29/2024 12:25:01 09/19/2024 11:20:22 Diabetes mellitus 92547960 E11.9 Continue diabetic control per PCP recommenda tion Neuropathy due to diabetes mellitus 137085128 E11.42 continue diabetic shoe gear and insolescon tinue diabetes management per PCP recommenda tions Callosity on toe 6137967 01 L84 Debrided without incidentri ght 2nd toeContinu e offloading with diabetic shoes and insolesMon itor for wounds daily if presents to medical attention immediatel y Acquired r ight mallet toe 8330140543 2446309 M20.5X1 right secondrepe at flexor tenotomy today, right second toedressin gs reviewedfo llow up as needed [id number] Howard Hauser DPM [facility] [address] [place] [address] 11/05/2024 14:13:15 11/05/2024 14:52:13 Diabetes mellitus 86262603 E11.9 Continue diabetic control per PCP recommenda tion Neuropathy due to diabetes mellitus 141202815 E11.42 continue diabetic shoe gear and insolescon tinue diabetes management per PCP recommenda tions Callosity on toe 20100101 L84 Debrided without incidentCo ntinue offloading with diabetic shoes and insolesMon itor for wounds daily if presents to medical attention immediatel y Dystrophia unguium 56176 009 L60.3 Nails 1 through 10 were debrided with sharp mechanical debridemen t without incident. Nails were debrided and greater than 50% length and thickness where needed. [id number] Howard Hauser DPM [facility] Pod[facility] [place] 2044 [facility] [address] [place] [address] 02/10/2025 11:15:12 02/12/2025 16:24:14 History of diabetic foot ulcer 9555884750 0289552 Z86.31 Diabetes mellitus 066745 09 E11.9 Continue diabetic control per PCP recommenda tion Callosity on toe 20100101 L84 Debrided without incidentCo ntinue offloading with diabetic shoes and insolesMon itor for wounds daily if presents to medical attention immediatel y Hammer toe 279504321 M20 .41 M20.42 Continue offloading with conservati ve therapy and diabetic shoe gear Dystrophia unguium 90484 009 L60.3 Nails 1 through 10 were debrided with sharp mechanical debridemen t without incident. Nails were debrided and greater than 50% length and thickness where needed. Health Concerns Section Related Observation LastModified by Organization Detai ls LastModified Time None Recorded Concern Status LastModified by Organization Details LastModified Time None Recorded Advance Directives Directive Y: Payers Insurance Date Sequence Insurance Name Policy Number Policy Jones Covered Member ID Jones Member ID Guarantor Name 02/07/[address] [facility] (MEDICARE REPLACEMENT/AD VANTAGE - PPO) [id number] Dequan Macdonald [id number] Dequan J Torres 05/06/2024 2 [place] WHEN MEDICARE OR MEDICARE REPLACEMENT PRIMARY) Dequan Alicea Torres [id number] Dequan Alicea Torres 02/07/2025 2 [place] [facility] Dequan Alicea Torres [id number] Dequan Macdonald Notes Date Note Type Note Provider [...] denies any other complaints. Howard Hauser DPM [address], [address], [place], [address], [employer] 02/21/2024 11:50:16 05/06/2024 text/html Patient is a 73-year-old female diabetic with neuropathy who returns for foot care. Patient has a callus to the distal 2nd toe right foot. Patient denies any open wounds or infection she requests her nails be cut as they are long. Patient denies any other complaints. Howard Hauser DPM [address], [address], [place], [address], [employer] 05/07/2024 09:21:07 07/29/2024 text/html . Patient is [...] Howard Hauser DPM [address], [address], [place], [address], [employer] 07/29/2024 14:36:11 11/05/2024 text/html . Patient is a 73-year-old female diabetic shoe returns the office for routine diabetic foot care she states overall she is doing well she has minor callusing secondary to hammertoe deformities and elongated toenails but denies any open wounds. Patient denies any other complaints. Howard Hauser DPM [address], [address], [place], [address], [employer] 11/06/2024 08:42:53 02/10/2025 text/html . Patient is [...] and would like her nails cut. Howard Hauser DPM [address], [address], [place], [address], [employer] 02/10/2025 13:51:32 OBGyn Episode No OBEpisode recorded.
--- OUTSIDE RECORDS SUMMARY | 2025-03-06 11:43 | XMS_ITS | Clinical Summary ---
Author Organization [facility] Address [address] [facility], [place] [address] Phone Care Team Providers Care Lottery Clerk Name Role Phone Ruslan Kellogg MD Unavailable Ren Green MD Primary Care Provider [phone] Allergies Active Allergy Reactions Criticality Noted Date [...] by inhalation 2 times daily. Active Tiotropium [place] Monohydrate (SPIRIVA HANDIHALER IN) take by inhalation daily. Active nystatin 482620 UNIT/GM Powder Apply 100,000 Units 3 times daily. Apply to affected area as directed. Active Nystatin (NYAMYC) 013518 UNIT/GM Powder 100,000 Units by Apply externally [...] Department Care Team Description 01/01/2025 Telephone [facility] - Pulmonology & Sleep Medicine [facility] [place] [address] [place] [phone] Ruslan Kellogg MD 12/[facility] [place] [address] [place] [phone] Ruslan Kellogg MD 12/09/2024 [facility] [place] [address] [place] [address] Ruslan Kellogg MD from Last 3 Months [...] Comments Blood Pressure 134/70 11/13/2024 11:45 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 Pulse 94 11/13/2024 11:45 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 Temperature 36.3 C (97.3 F) 11/13/2024 11:45 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 Respiratory Rate 18 11/13/2024 11:4 5 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 Oxygen Saturation 94% 11/13/2024 11: 45 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 Inhaled Oxygen Concentration - - Weight 100.6 kg (221 lb 11.2 oz) 2024 11:45 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 Height 165.1 cm (5' 5) 11/13/2024 11:4 5 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 Body Mass Index 36.89 11/13/2024 11:45 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 Plan of Treatment Upcoming Encounters Date Type Department Care Team (Late st Contact Info) Description 05/15/2025 11:30 AM CDT Office Visit [facility] - Pulmonology & [facility] Medicine - [place] [address] [place] [phone] Ruslan Kellogg MD [address] [place] [phone] Health Maintenance Due Date Last Done Comments DEXA Bone Density 1950 Diabetes: Eye Exam 1950 Diabetes: Foot Exam 1950 Diabetes: Hemoglobin A1c 1950 Hepatitis C Virus (HCV) Screening 1950 Mammogram 1950 TdaP Immunization 1950 Diabetes: Nephropathy Screening 12/20/1969 Cologuard 12/20/1996 Immunochemical Fecal Occult Blood 12/20/1996 Respiratory Syncytial Virus (RSV) Immunization (Adult) (1 - Risk 60-74 years 1-dose series) 2011 Zoster Immunization (2 of 2) 11/05/2018 09/10/2018 SARS-COV-2 Immunization ( season) 2024 06/12/2023, 04/12/2022, 08/30/2021, Additional history exists Colonoscopy 06/12/2026 06/12/2016 Colorectal Cancer Screening 06/12/2026 Pneumococcal Immunization (50+ years) Completed 06/30/2019, 01/15/2019, 07/19/2017, Additional history exists Pneumococcal Immunization Combined Discontinued 06/30/2019, 01/15/2019, 07/19/2017, Additional history exists Influenza Immunization Completed , 06/12/2023, 07/19/2022, Additional history exists Hepatitis B Immunization Aged Out No longer eligible based on patient's age to complete this topic Human Papillomavirus (HPV) Immunization Aged Out No longer eligible based on patient's age to complete this topic Meningococcal Immunization (ACWY) Aged Out No longer eligible based on patient's age to complete this topic Rotavirus Immunization Aged Out No lo nger eligible based on patient's age to complete this topic Insurance MEDICAID [place] MEDICARE C [facility] Care Teams Lottery Clerk Relationship Specialty Start Date End Date Ren Green MD [address] [place] [address] PCP - General Internal Medicine 07/16/18 Ruslan Kellogg MD [address] [place] [address] Consulting Physician Pulmonary Disease 03/23/16
--- OUTSIDE RECORDS SUMMARY | 2025-03-06 11:44 | XMS_ITS | Continuity of Care Document ---
Author Organization [facility] Address [address] [place] [address] Phone Care Team Providers Care Field Worker Name Role Phone Kim Trinidad Unavailable Unavailable [...] Ma Visual Field Examination(s) BF Plastic Sphcyl Shelton To +/-4d .12-2d Frames Deluxe Tax - Medical Refraction Eye Exam & Treatment Special Reports Or Forms Advance Directives Directive Yes / No Effective Date File Name No Information Encounters Encounter Description Practice Location Reason(s) For Visit Diagnoses Date Provider Providers Copied on Encounter Office/outpat ient Visit, [facility], [address] [place] [address] [address], [place], [place], [id number], [place] tel:[phone] [facility] [place] No Information 0 Kim Shaikh [address] [facility] , [address], [place], [place], [facility], [place]. tel:[phone] [facility], [address] [place] [address] [address], [place], [place], [id number], tel:[phone] [facility] No Information 0 Kim Shaikh [address] , [address], [place], [facility], [place]. tel:[phone] Referring Provider: [address] [facility] [address], [place], [facility]. tel:[phone] Office/outpat ient Visit, [facility], [address] [place] [address] [address], [place], [place], [id number], [place] tel:[phone] SEC [facility] [place] No Information 0 Kim Shaikh [address] [facility] , [address], [place], [facility], [place]. tel:[phone] Office/outpat ient Visit, [facility], [address] [place] [address] [address], [place], [place], [id number], [place] tel:[phone] [facility] [place] No Information 200 9 Kim Shaikh [address] , [address], [place], [facility], [place]. tel:[phone] [facility], [address] [place] [address] [address], [place], [place], [id number], [place] tel:[phone] [facility] No Information 6[address] Kim Shaikh [address] [facility] , [address], [place], [facility], [place]. tel:[phone] Referring Provider: Trniidad Najera, [address], [place], [address]. tel:[phone] [facility], [address], [place], [place], [id number], [place] tel:[phone] [facility] No Information Olivier-2 5-200 9 Kim Abdi. [address] , [address], [place], [facility], [place]. tel:[phone] Office/outpat ient Visit, [facility], [address] [place] [address] [address], [place], [place], [address], [place] tel:[phone] [facility] [place] No Information Mar-1 2-200 9 Kim Abdi. [facility] , [address], [place], [facility], [place]. tel:[phone] Office/outpat ient Visit, [facility], [address] [place] [address] [address], [place], [place], [address], [place] tel:[phone] SEC [facility] [place] No Information Sep-1 1-200 8 Kim Shaikh [address] [facility] , [address], [place], [facility], [place]. tel:[phone] [facility], [address] [place] [address] [address], [place], [place], [address], [place] tel:[phone] SEC [facility] No Information January-2 0-200 8 Kim Abdi. [address] [facility] , [address], [place], [facility], [place]. tel:[phone] Referring Provider: Trinidad Najera, [address], [place], [address]. tel:[phone] Office/outpat ient Visit, [facility], [address] [place] [address] [address], [place], [place], [id number], [place] tel:[phone] SEC [facility] No Information 0-200 8 Kim Abdi. [address] , [address], [place], [facility], . tel:[phone] Office/outpat ient Visit, [facility], [address], [place], [place], [id number], tel:[phone] [facility] No Information May-2 0-200 7 Kim Abdi. [address] , [address], [place], [facility], . tel:[phone] Referring Provider: Trinidad Najera, [address] [facility] [address], [place], [facility]. tel:[phone] [facility], [address] [place] [address] [address], [place], [place], [id number], tel:[phone] SEC [facility] No Information 7200 7 Kim Abdi. [facility] , [address], [place], [facility], [place]. tel:[phone] Referring Provider: Trinidad Najera, [address] [facility] [address], [place], [facility]. tel:[phone] [facility], [address] [place] [address] [address], [place], [place], [id number], [place] tel:[phone] SEC [facility] No Information 6200 7 Kim Abdi. [facility] , [address], [place], [facility], [place]. tel:[phone] Referring Provider: Trinidad Najera, [address] [facility] [address], [place], [facility]. tel:[phone] [facility], [address] [place] [address] [address], [place], [place], [id number], tel:[phone] SEC [facility] No Information 0 3-200 7 [facility] . [address] [facility], [address], [place], [place], [address], . tel:[phone] Referring Provider: Trinidad Najera, [address] [place] [address] [address], [place], [address]. tel:[phone] sulting Provider: Casey Alves, [address] [place] [address], [place], [facility]. tel:[phone] [facility], [address], [place], [place], [address], tel:[phone] SEC [facility] No Information 3-200 7 Kim Abdi. [address] [place] [address] , [address], [place], [address], [place]. tel:[phone] [facility], [address], [place], [place], [id number], [place] tel:[phone] SEC [facility] No Information 0200 7 Kim Abdi. [address] [place] [address] , [address], [place], [address], [place]. tel:[phone] Family History Family Member Type Diagnosis Age At Onset No Information Payers Payer name Insurance type Covered constitution party ID Authoriza tion(s) No Information Social History [...]
--- OUTSIDE RECORDS SUMMARY | 2025-03-06 11:44 | XMS_ITS | Data Portability ---
[facility] [address] [place] [id number] Care Team Providers Care Medical Dermatologist Name Role Phone SOPHIE GREEN Primary Care Provider [phone] FLORY HAYWARD Toy Packer MARY BETH CORNELL Peeled Potato Inspector JESSE SOTO Gaming Department Head PAL SAEED Dog Or Horse Racing Official CHASIDY LE Jewelry Designer GIRISH CÁRDENAS Medical Oncologist Assessment Encounter Date Assessment Date Assessment LastModified by Organization Details LastModified Time 04/23/2024 04/23/2024 doxycycline for 10 days she will call in 2-3 days with update any fever chills confusion or if she develops any significant worsening over the next few days go to ER [email or web address] Not available 04/25/2024 21:41:42 06/17/2024 06/17/2024 flu shot. Healthy lifestyle care instructions. Refill triamcinolone. Problems in the assessment and plan have been discussed in the management of those problems. Patient has been given the opportunity to ask questions all questions have been answered to patient's satisfaction she will follow up on me in 3 months [email or web address] Not available 07/13/2024 17:48:31 08/19/2024 08/19/2024 her [...] the container see me in 3 months [email or web address] Not available 11/15/2024 20:55:43 02/12/2025 02/12/2025 Overall she appears to be stable we will obtain blood work continue with the current therapy questions have been answered follow up in 3-4 months [email or web address] Not available 02/14/2025 17:14:06 Plan of Treatment Reminders Order Date Submit Date Provider Last Modified By Organization Details Last Modified Time Details Appointments ANY 15 2024 11:00A Roseann Green MD Not available Not available Not available Lab HbA1c (hemoglob in A1c), blood 2024 025 [facility] [address], [place], [address], 02/17/2025 16:51:57 lipid panel, serum 2024 025 [facility], [address], [place], [address], 02/17/2025 16:51:56 CBC w/ auto diff 2024 025 [facility], [address], [place], [address], 02/17/2025 16:51:57 CMP, serum or plasma 2024 025 [facility], [address], [place], [address], 02/17/2025 16:51:56 HbA1c (hemoglob in A1c), blood 2024 025 NANC[facility], [address], [place], [address], 11/15/2024 08:25:18 lipid panel, serum 2024 025 NANCY [facility], [address], [place], [address], 11/15/2024 08:25:16 CBC w/ auto diff 2024 025 [facility], [address], [place], [address], 11/15/2024 08:25:19 CMP, serum or plasma 2024 025 [facility], [address], [place], [address], 11/15/2024 08:25:17 HbA1c (hemoglob in A1c), blood 2023 024 [facility], [address], [place], [address], 08/20/2024 10:15:11 lipid panel, serum 2023 024 [facility], [address], [place], [address], 08/20/2024 10:15:08 CMP, serum or plasma 2023 024 [facility], [address], [place], [address], 08/20/2024 10:15:10 CBC w/ auto diff 2023 024 [facility], [address], [place], [address], 08/20/2024 10:15:13 Referral None recorded. Procedures None recorded. Surgeries None recorded. Imaging None recorded. Medication Orders triamcino lone acetonide 0.1 % topical cream 2023 024 [email or web address] [id number], [address], [place], [place], [id number], 06/17/2024 18:18:32 doxycycli ne hyclate 100 mg capsule 2023 024 [id number], [address], [place], [place], [id number], 06/17/2024 14:26:55 Patient TargetsNo targets recorded. Patient Instructions Encounter Date Encounter Id Patient Instructions Last Modified By Organization Details Last Modified Time 06/17/2024 [id number] A healthy lifestyle: care instructions [email or web address] Not available 06/17/2024 18:18:32 08/19/2024 [id number] A healthy lifestyle: care instructions [email or web address] Not available 08/19/2024 16:39:48 11/14/2024 [id number] A healthy lifestyle: care instructions [email or web address] Not available 11/14/2024 12:47:57 02/12/2025 [id number] A healthy lifestyle: care instructions [email or web address] Not available 02/12/2025 17:58:05 Reason for Referral None Reported. Results Created Date Observation Date Name Description Value Unit Range Abnormal Flag Note LastModifiedBy Organization Detail LastModifiedTime 08/19/2008/20/2024 LIPID PANEL cholesterol, total 118 mg/dL 100-19 9 Not Available [facility] ([facility]) [address] [place], [address], 08/20/2024 10:15:08 08/19/2008/20/2024 LIPID PANEL triglyceride s 173 mg/dL 0-149 above high normal Not Available [facility] ([facility]) [address] [place], [address], 08/20/2024 10:15:08 08/19/2008/20/2024 LIPID PANEL HDL cholesterol 36 mg/dL >39 below low normal Not Available [facility] ([facility]) [address] [place], [address], 08/20/2024 10:15:08 08/19/2008/20/2024 LIPID PANEL VLDL cholesterol getachew 29 mg/dL 5-40 Not Available [facility] ([facility]) [address] [place], [address], 08/20/2024 10:15:08 08/19/20 24 08/20/2024 LIPID PANEL LDL chol calc ([facility]) 53 mg/dL 0-99 Not Available [facility] ([facility]) [address] [place], [address], 08/20/2024 10:15:08 08/19/20 24 08/20/2024 COMP. METAB OLIC PANEL (14) glucose 115 mg/dL 70-99 above high normal Not Available [facility] ([facility]) [address] [place], [address], 08/20/2024 10:15:10 08/19/20 24 08/20/2024 COMP. METAB OLIC PANEL (14) BUN 25 mg/dL 8-27 Not Available [facility] ([facility]) [address] [place], [address], 08/20/2024 10:15:10 08/19/20 24 08/20/2024 COMP. METAB OLIC PANEL (14) creatinine 0.92 mg/dL 0.57-1 .00 Not Available [facility] ([facility]) [address] [place], [address], 08/20/2024 10:15:10 08/19/20 24 08/20/2024 COMP. METAB OLIC PANEL (14) eGFR 66 mL/mi n/1.7 3 >59 Not Available [facility] ([facility]) [address] [place], [address], 08/20/2024 10:15:10 08/19/20 24 08/20/2024 COMP. METAB OLIC PANEL (14) BUN/creatini ne ratio 12-28 Not Available [facility] ([facility]) [address] [place], [address], 08/20/2024 10:15:10 08/19/20 24 08/20/2024 COMP. METAB OLIC PANEL (14) sodium 143 mmol/ L 134-14 4 Not Available [facility] ([facility]) [address] [place], [address], 08/20/2024 10:15:10 08/19/20 24 08/20/2024 COMP. METAB OLIC PANEL (14) potassium 4.3 mmol/ L 3.5-5. 2 Not Available [facility] ([facility]) [address] [place], [address], 08/20/2024 10:15:10 08/19/20 24 08/20/2024 COMP. METAB OLIC PANEL (14) chloride 106 mmol/ L 96-106 Not Available [facility] ([facility]) [address] [place], [address], 08/20/2024 10:15:10 08/19/20 24 08/20/2024 COMP. METAB OLIC PANEL (14) carbon dioxide, total 22 mmol/ L 20-29 Not Available [facility] ([facility]) [address] [place], [address], 08/20/2024 10:15:10 08/19/20 24 08/20/2024 COMP. METAB OLIC PANEL (14) calcium 9.4 mg/dL 8.7-10 .3 Not Available [facility] ([facility]) [address] [place], [address], 08/20/2024 10:15:10 08/19/20 24 08/20/2024 COMP. METAB OLIC PANEL (14) protein, total 6.7 g/dL 6.0-8. 5 Not Available [facility] ([facility]) [address] [place], [address], 08/20/2024 10:15:10 08/19/20 24 08/20/2024 COMP. METAB OLIC PANEL (14) albumin 3.9 g/dL 3.8-4. 8 Not Available [facility] ([facility]) [address] [place], [address], 08/20/2024 10:15:10 08/19/20 24 08/20/2024 COMP. METAB OLIC PANEL (14) globulin, total 2.8 g/dL 1.5-4. 5 Not Available [facility] ([facility]) [address] [facility], [place], [address], 08/20/2024 10:15:10 08/19/20 24 08/20/2024 COMP. METAB OLIC PANEL (14) bilirubin, total 0.3 mg/dL 0.0-1. 2 Not Available [facility] ([facility]) [address] [place], [address], 08/20/2024 10:15:10 08/19/20 24 08/20/2024 COMP. METAB OLIC PANEL (14) alkaline phosphatase 112 IU/L 44-121 Not Available [facility] ([facility]) [address] [place], [address], 08/20/2024 10:15:10 08/19/20 24 08/20/2024 COMP. METAB OLIC PANEL (14) AST (SGOT) 17 IU/L 0-40 Not Available [facility] ([facility]) [address] [place], [address], 08/20/2024 10:15:10 08/19/20 24 08/20/2024 COMP. METAB OLIC PANEL (14) ALT (SGPT) 18 IU/L 0-32 Not Available [facility] ([facility]) [address] [place], [address], 08/20/2024 10:15:10 08/19/20 24 08/20/2024 HEMOG LOBIN A1C hemoglobin A1C 6.5 % 4.8-5. 6 above high normal Predi abete s: 5.7 - 6.4 Diabe johnie: >6.4 Glyce uog contr ol for adult s with diabe johnie: <7.0 Not Available [facility] ([facility]) [address] [place], [address], 08/20/2024 10:15:11 08/19/20 24 08/20/2024 CBC WITH DIFFE RENTI AL/PL ATELE T WBC 15.8 x10e3 /uL 3.4-10 .8 above high normal Eff ectiv e Decem carl 2023 [place] [id number] 5 WBC will be made* * non-o rdera ble as a stand -leticia e order code. Not Available [facility] ([facility]) [address] [facility], [place], [address], 08/20/2024 10:15:12 08/19/20 24 08/20/2024 CBC WITH DIFFE RENTI AL/PL ATELE T RBC 5.09 x10e6 /uL 3.77-5 .28 Not Available [facility] ([facility]) [address] [place], [address], 08/20/2024 10:15:12 08/19/20 24 08/20/2024 CBC WITH DIFFE RENTI AL/PL ATELE T hemoglobin 13.9 g/dL 11.1-1 5.9 Not Available [facility] ([facility]) [address] [place], [address], 08/20/2024 10:15:12 08/19/20 24 08/20/2024 CBC WITH DIFFE RENTI AL/PL ATELE T hematocrit 43.0 % 34.0-4 6.6 Not Available [facility] ([facility]) [address] [place], [address], 08/20/2024 10:15:12 08/19/20 24 08/20/2024 CBC WITH DIFFE RENTI AL/PL ATELE T MCV 85 fL 79-97 Not Available [facility] ([facility]) [address] [place], [address], 08/20/2024 10:15:12 08/19/20 24 08/20/2024 CBC WITH DIFFE RENTI AL/PL ATELE T MCH 27.3 pg 26.6-3 3.0 Not Available [facility] ([facility]) [address] [facility], [place], [address], 08/20/2024 10:15:12 08/19/20 24 08/20/2024 CBC WITH DIFFE RENTI AL/PL ATELE T MCHC 32.3 g/dL 31.5-3 5.7 Not Available [facility] ([facility]) [address] [facility], [place], [address], 08/20/2024 10:15:12 08/19/20 24 08/20/2024 CBC WITH DIFFE RENTI AL/PL ATELE T RDW 13.2 % 11.7-1 5.4 Not Available [facility] ([facility]) [address] [place], [address], 08/20/2024 10:15:12 08/19/20 24 08/20/2024 CBC WITH DIFFE RENTI AL/PL ATELE T platelets 279 x10e3 /uL 150-45 0 Not Available [facility] ([facility]) [address] [place], [address], 08/20/2024 10:15:12 08/19/20 24 08/20/2024 CBC WITH DIFFE RENTI AL/PL ATELE T neutrophils 72 % notest ab. Not Available [facility] ([facility]) [address] [place], [address], 08/20/2024 10:15:12 08/19/20 24 08/20/2024 CBC WITH DIFFE RENTI AL/PL ATELE T lymphs 19 % notest ab. Not Available [facility] ([facility]) [address] [place], [address], 08/20/2024 10:15:12 08/19/20 24 08/20/2024 CBC WITH DIFFE RENTI AL/PL ATELE T monocytes 7 % notest ab. Not Available [facility] ([facility]) [address] [place], [address], 08/20/2024 10:15:12 08/19/20 24 08/20/2024 CBC WITH DIFFE RENTI AL/PL ATELE T eos 2 % notest ab. Not Available [facility] ([facility]) [address] [facility], [place], [address], 08/20/2024 10:15:12 08/19/20 24 08/20/2024 CBC WITH DIFFE RENTI AL/PL ATELE T basos 0 % notest ab. Not Available [facility] ([facility]) [address] [place], [address], 08/20/2024 10:15:12 08/19/20 24 08/20/2024 CBC WITH DIFFE RENTI AL/PL ATELE T neutrophils (absolute) 11.3 x10e3 /uL 1.4-7. 0 above high normal Not Available [facility] ([facility]) [address] [place], [address], 08/20/2024 10:15:12 08/19/20 24 08/20/2024 CBC WITH DIFFE RENTI AL/PL ATELE T lymphs (absolute) 3.0 x10e3 /uL 0.7-3. 1 Not Available [facility] ([facility]) [address] [place], [address], 08/20/2024 10:15:12 08/19/20 24 08/20/2024 CBC WITH DIFFE RENTI AL/PL ATELE T monocytes(ab solute) 1.0 x10e3 /uL 0.1-0. 9 above high normal Not Available [facility] ([facility]) [address] [facility], [place], [address], 08/20/2024 10:15:12 08/19/20 24 08/20/2024 CBC WITH DIFFE RENTI AL/PL ATELE T eos (absolute) 0.3 x10e3 /uL 0.0-0. 4 Not Available [facility] ([facility]) [address] [facility], [place], [address], 08/20/2024 10:15:12 08/19/20 24 08/20/2024 CBC WITH DIFFE RENTI AL/PL ATELE T baso (absolute) 0.1 x10e3 /uL 0.0-0. 2 Not Available [facility] ([facility]) [address] [facility], [place], [address], 08/20/2024 10:15:12 08/19/20 24 08/20/2024 CBC WITH DIFFE RENTI AL/PL ATELE T immature granulocytes 0 % notest ab. Not Available [facility] ([facility]) [address] [facility], [place], [address], 08/20/2024 10:15:12 08/19/20 24 08/20/2024 CBC WITH DIFFE RENTI AL/PL ATELE T immature grans (abs) 0.0 x10e3 /uL 0.0-0. 1 Not Available [facility] ([facility]) [address] [place], [address], 08/20/2024 10:15:12 11/14/19 25 11/15/2024 LIPID PANEL cholesterol, total 112 mg/dL 100-19 9 Not Available [facility] ([facility]) [address] [facility], [place], [address], 11/15/2024 08:25:16 11/14/19 25 11/15/2024 LIPID PANEL triglyceride s 135 mg/dL 0-149 Not Available [facility] ([facility]) [address] [place], [address], 11/15/2024 08:25:16 11/14/19 25 11/15/2024 LIPID PANEL HDL cholesterol 41 mg/dL >39 Not Available [facility] ([facility]) [address] [place], [address], 11/15/2024 08:25:16 11/14/19 25 11/15/2024 LIPID PANEL VLDL cholesterol getachew 24 mg/dL 5-40 Not Available [facility] ([facility]) [address] [place], [address], 11/15/2024 08:25:16 11/14/19 25 11/15/2024 LIPID PANEL LDL chol calc ([facility]) 47 mg/dL 0-99 Not Available [facility] ([facility]) [address] [place], [address], 11/15/2024 08:25:16 11/14/19 25 11/15/2024 COMP. METAB OLIC PANEL (14) glucose 89 mg/dL 70-99 Not Available [facility] ([facility]) [address] [place], [address], 11/15/2024 08:25:17 11/14/19 25 11/15/2024 COMP. METAB OLIC PANEL (14) BUN 30 mg/dL 8-27 above high normal Not Available [facility] ([facility]) [address] [place], [address], 11/15/2024 08:25:17 11/14/19 25 11/15/2024 COMP. METAB OLIC PANEL (14) creatinine 0.95 mg/dL 0.57-1 .00 Not Available [facility] ([facility]) [address] [place], [address], 11/15/2024 08:25:17 11/14/19 25 11/15/2024 COMP. METAB OLIC PANEL (14) eGFR 64 mL/mi n/1.7 3 >59 Not Available [facility] ([facility]) [address] [place], [address], 11/15/2024 08:25:17 11/14/19 25 11/15/2024 COMP. METAB OLIC PANEL (14) BUN/creatini ne ratio 32 12-28 above high normal Not Available [facility] ([facility]) [address] [place], [address], 11/15/2024 08:25:17 11/14/19 25 11/15/2024 COMP. METAB OLIC PANEL (14) sodium 139 mmol/ L 134-14 4 Not Available [facility] ([facility]) [address] [place], [address], 11/15/2024 08:25:17 11/14/19 25 11/15/2024 COMP. METAB OLIC PANEL (14) potassium 4.5 mmol/ L 3.5-5. 2 Not Available [facility] ([facility]) [address] [place], [address], 11/15/2024 08:25:17 11/14/19 25 11/15/2024 COMP. METAB OLIC PANEL (14) chloride 102 mmol/ L 96-106 Not Available [facility] ([facility]) [address] [place], [address], 11/15/2024 08:25:17 11/14/19 25 11/15/2024 COMP. METAB OLIC PANEL (14) carbon dioxide, total 22 mmol/ L 20-29 Not Available [facility] ([facility]) [address] [place], [address], 11/15/2024 08:25:17 11/14/19 25 11/15/2024 COMP. METAB OLIC PANEL (14) calcium 10.0 mg/dL 8.7-10 .3 Not Available [facility] ([facility]) [address] [facility] [place] [place], [address], 11/15/2024 08:25:17 11/14/19 25 11/15/2024 COMP. METAB OLIC PANEL (14) protein, total 6.6 g/dL 6.0-8. 5 Not Available [facility] ([facility]) [address] [facility] [place] [place], [address], 11/15/2024 08:25:17 11/14/19 25 11/15/2024 COMP. METAB OLIC PANEL (14) albumin 4.0 g/dL 3.8-4. 8 Not Available [facility] ([facility]) [address] [facility] [place] [place], [address], 11/15/2024 08:25:17 11/14/19 25 11/15/2024 COMP. METAB OLIC PANEL (14) globulin, total 2.6 g/dL 1.5-4. 5 Not Available [facility] ([facility]) [address] [facility] [place] [place], [address], 11/15/2024 08:25:17 11/14/19 25 11/15/2024 COMP. METAB OLIC PANEL (14) bilirubin, total 0.4 mg/dL 0.0-1. 2 Not Available [facility] ([facility]) [address] [place], [address], 11/15/2024 08:25:17 11/14/19 25 11/15/2024 COMP. METAB OLIC PANEL (14) alkaline phosphatase 115 IU/L 44-121 Not Available [facility] ([facility]) [address] [facility] [place] [place], [address], 11/15/2024 08:25:17 11/14/19 25 11/15/2024 COMP. METAB OLIC PANEL (14) AST (SGOT) 18 IU/L 0-40 Not Available [facility] [address] [facility] [place], [address], 11/15/2024 08:25:17 11/14/19 25 11/15/2024 COMP. METAB OLIC PANEL (14) ALT (SGPT) 15 IU/L 0-32 Not Available [facility] ([facility]) [address] [place], [address], 11/15/2024 08:25:17 11/14/19 25 11/15/2024 HEMOG LOBIN A1C hemoglobin A1C 6.4 % 4.8-5. 6 above high normal Predi abete s: 5.7 - 6.4 Diabe johnie: >6.4 Glyce ugo contr ol for adult s with diabe johnie: <7.0 Not Available [facility] ([facility]) [address] [place], [address], 11/15/2024 08:25:18 11/14/19 25 11/15/2024 CBC WITH DIFFE RENTI AL/PL ATELE T WBC 19.4 x10e3 /uL 3.4-10 .8 above high normal Not Available [facility] ([facility]) [address] [place], [address], 11/15/2024 08:25:19 11/14/19 25 11/15/2024 CBC WITH DIFFE RENTI AL/PL ATELE T RBC 4.94 x10e6 /uL 3.77-5 .28 Not Available [facility] ([facility]) [address] [place], [address], 11/15/2024 08:25:19 11/14/19 25 11/15/2024 CBC WITH DIFFE RENTI AL/PL ATELE T hemoglobin 13.7 g/dL 11.1-1 5.9 Not Available [facility] ([facility]) [address] [place], [address], 11/15/2024 08:25:19 11/14/19 25 11/15/2024 CBC WITH DIFFE RENTI AL/PL ATELE T hematocrit 43.1 % 34.0-4 6.6 Not Available [facility] ([facility]) [address] [place], [address], 11/15/2024 08:25:19 11/14/19 25 11/15/2024 CBC WITH DIFFE RENTI AL/PL ATELE T MCV 87 fL 79-97 Not Available [facility] ([facility]) [address] [facility], [place], [address], 11/15/2024 08:25:19 11/14/19 25 11/15/2024 CBC WITH DIFFE RENTI AL/PL ATELE T MCH 27.7 pg 26.6-3 3.0 Not Available [facility] ([facility]) [address] [place], [address], 11/15/2024 08:25:19 11/14/19 25 11/15/2024 CBC WITH DIFFE RENTI AL/PL ATELE T MCHC 31.8 g/dL 31.5-3 5.7 Not Available [facility] ([facility]) [address] [place], [address], 11/15/2024 08:25:19 11/14/19 25 11/15/2024 CBC WITH DIFFE RENTI AL/PL ATELE T RDW 13.0 % 11.7-1 5.4 Not Available [facility] ([facility]) [address] [place], [address], 11/15/2024 08:25:19 11/14/19 25 11/15/2024 CBC WITH DIFFE RENTI AL/PL ATELE T platelets 301 x10e3 /uL 150-45 0 Not Available [facility] ([facility]) [address] [place], [address], 11/15/2024 08:25:19 11/14/19 25 11/15/2024 CBC WITH DIFFE RENTI AL/PL ATELE T neutrophils 72 % notest ab. Not Available [facility] ([facility]) [address] [facility], [place], [address], 11/15/2024 08:25:19 11/14/19 25 11/15/2024 CBC WITH DIFFE RENTI AL/PL ATELE T lymphs 19 % notest ab. Not Available [facility] ([facility]) [address] [facility], [place], [address], 11/15/2024 08:25:19 11/14/19 25 11/15/2024 CBC WITH DIFFE RENTI AL/PL ATELE T monocytes 6 % notest ab. Not Available [facility] ([facility]) [address] [facility], [place], [address], 11/15/2024 08:25:19 11/14/19 25 11/15/2024 CBC WITH DIFFE RENTI AL/PL ATELE T eos 2 % notest ab. Not Available [facility] ([facility]) [address] [place], [address], 11/15/2024 08:25:19 11/14/19 25 11/15/2024 CBC WITH DIFFE RENTI AL/PL ATELE T basos 0 % notest ab. Not Available [facility] ([facility]) [address] [place], [address], 11/15/2024 08:25:19 11/14/19 25 11/15/2024 CBC WITH DIFFE RENTI AL/PL ATELE T neutrophils (absolute) 13.9 x10e3 /uL 1.4-7. 0 above high normal Not Available [facility] ([facility]) [address] [facility], [place], [address], 11/15/2024 08:25:19 11/14/19 25 11/15/2024 CBC WITH DIFFE RENTI AL/PL ATELE T lymphs (absolute) 3.8 x10e3 /uL 0.7-3. 1 above high normal Not Available [facility] ([facility]) [address] [facility], [place], [address], 11/15/2024 08:25:19 11/14/1911/15/2024 CBC WITH DIFFE RENTI AL/PL ATELE T monocytes(ab solute) 1.1 x10e3 /uL 0.1-0. 9 above high normal Not Available [facility] ([facility]) [address] [facility], [place], [address], 11/15/2024 08:25:19 11/14/19 25 11/15/2024 CBC WITH DIFFE RENTI AL/PL ATELE T eos (absolute) 0.4 x10e3 /uL 0.0-0. 4 Not Available [facility] ([facility]) [address] [facility], [place], [address], 11/15/2024 08:25:19 11/14/19 25 11/15/2024 CBC WITH DIFFE RENTI AL/PL ATELE T baso (absolute) 0.1 x10e3 /uL 0.0-0. 2 Not Available [facility] ([facility]) [address] [facility], [place], [address], 11/15/2024 08:25:19 11/14/1911/15/2024 CBC WITH DIFFE RENTI AL/PL ATELE T immature granulocytes 1 % notest ab. Not Available [facility] ([facility]) [address] [place], [address], 11/15/2024 08:25:19 11/14/1911/15/2024 CBC WITH DIFFE RENTI [...] getachew signi fican ce.) Not Available [facility] ([facility]) [address], [place], [address], 11/15/2024 08:25:19 03/28/2003/28/2024 bone densi ty No observ ation record ed. [facility] [address] [place], [address], 04/02/2024 14:29:56 04/18/20 24 04/16/2024 MAMMO , scree ben, bilat eral No observ ation record ed. [facility] [address] [place], [address], 04/29/2024 11:20:36 Result Notes None recorded. Problems Name Problem SNOMED Code Status Onset Date Resolution Date Notes Provider Name and Address Organization Details Recorded Time Type 2 diabetes mellitus [id number] Active 2023 Sophie Green MD Attn: Ga de leon,[address] [place], [address], [facility] 4 12:04:42 Essential hypertension 67411693 Active 2023 Sophie Green MD Attn: Ga de leon,[address] [place], [address], [place] [facility] 4 12:04:43 Hyperlipidemia 52182414 Active 2023 Sophie Green MD Attn: Ga de leon,[address] [facility], [place], [address], [place] 4 12:04:46 Chronic obstructive pulmonary disease 35361259 Active 2023 Sophie Green MD Attn: Ga de leon,[address] [place], [address] 4 12:04:47 Chronic rhinitis 43709079 Active 2023 Sophie Green MD Attn: Ga de leon,[address] [facility], [place], [address], [facility] 4 12:04:48 Gastroesophage al reflux disease without esophagitis 094779543 Active 2023 Sophie Green MD Attn: Ga de leon,[address] [facility], [place], [address], [facility] 4 12:04:51 Chronic diastolic heart failure 289802702 Active 2023 Sophie Green MD Attn: Ga de leon,[address] [facility], [place], [address], [facility] - [facility] 4 12:05:15 Problem Notes Documentation Provider Name and Address Organization Details Recorded Time 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 Patient : 1950. Patient . Amparo Seals [facility] 07/15/2024 10:21:31 Procedures Surgical History Date Name Laterality Status Provider Name and Address Organization Details Recorded Time 05/30/20 24 Upper gi endoscopy performed completed Abi Sandoval LPN [facility] 06/12/2024 11:04:35 hysterectomy completed [facility] 12:11:31 tonsillectomy completed [facility] 12:11:38 appendectomy completed Nad[facility] 12:11:44 procedure on aorta completed [facility] 03/19/2024 12:12:03 hammer toe operation completed [facility] 03/19/2024 12:12:09 Imaging Results None recorded. Procedure Notes None recorded. Medical Equipment None Reported. Allergies Allergen ID Allergen Name Allergen Category Reaction Reaction Severity Criticality Documentation Date Start Date Code Code System Note Provider Name and Address Organization Details Recorded Time 685956 hydrocodo ne Not available nausea vomiting Not available Not available Not available 12/03/2023 5489 RxNorm Emmanuelle Rizzo RMA [place] [facility] 4 14:50:27 122469 nickel environme nt rash Not available Not available 12/03/2023 18705 29 RxNorm Emmanuelle Matthias R[place] [facility] 4 14:50:48 422944 metformin medicatio n diarrhea Not available Not available 12/03/2023 6809 RxNorm Emmanuelle Rizzo [place] [facility] 4 14:50:58 997885 Levaquin medicatio n rash Not available Not available 12/03/2023 64999 2 RxNorm Emmanuelle Rizzo [place] [facility] 4 14:51:09 720639 mold extract environme nt Not available Not available Not available 12/03/2023 70233 8 RxNorm Emmanuelle Matthias [place] [facility] 4 14:51:28 784045 amoxicill in medicatio n vomiting Not available Not available 12/03/2023 723 RxNorm Emmanuelle Rizzo [place] [facility] 4 14:51:39 634334 potassium medicatio n diarrhea Not available Not available 12/03/2023 8588 RxNorm Emmanuelle Rizzo [place] [facility] 4 14:52:09 904739 Alphagan medicatio n eye redness Not available Not available 12/03/2023 64112 8 RxNorm BETTY [place] [facility] 5 10:16:33 061454 Darvocet- N medicatio n dyspnea Not available Not available 12/03/2023 82525 UNK Emmanuelle Rizzo R[place] [facility] 4 14:52:59 484241 Dilaudid medicatio n Not available Not available Not available 12/03/2023 37888 3 RxNorm clamm y and hot flash es NASIMA Aguayo [place] [facility] 4 14:53:30 344798 hydrochlo rothiazid e medicatio n Not available Not available Not available 12/03/2023 5487 RxNorm NASIM[place] [facility] 4 14:53:47 078943 Medicinal product acting as adhesive (product) environme nt,medica tion hives itching Not available Not available high 11/14/20242015 02594 2009 SNOMED BETTY Perez, [place] [facility] 5 10:16:27 113897 Altace medicatio n hives Not available Not available 11/14/2024 79089 8 RxNorm BETTY [place] [facility] 5 10:16:36 983427 Augmentin medicatio n diarrhea vomiting severe moderate Not available 11/14/20242021 25410 2 RxNorm BETTY [place] [facility] 5 10:16:40 953999 azithromy luz medicatio n diarrhea severe Not available 11/14/2024 99768 RxNorm BETTY [place] [facility] 5 10:16:45 912927 brimonidi ne medicatio n Not available Not available low 11/14/20242015 36619 5 RxNorm RED EYE RED EYE React ion: Other React ion: Other , BETTY Perez, [place] [facility] 5 10:16:49 935840 brinzolam hina medicatio n itching Not available low 11/14/20242015 54049 1 RxNorm RED EYES RED EYES BETTY Perez, [place] [facility] 5 10:16:59 Medications Name Sig Start Date Stop Date Status Note LastModified by Organization Details LastModified Time frentsTouch Ultra Blue Test Strips test blood sugars four times daily as directed 2023 active Not Available Not Available Not Avai lable furosemide 40 mg tablet TAKE 1 TABLET BY MOUTH EVERY DAY 2024 active Not Available Not Available Not Avai lable atorvastati n 40 mg tablet TAKE 1 TABLET BY MOUTH EVERY DAY IN THE EVENING 2024 active Not Available Not Available Not Avai lable fluticasone 250 mcg-salmete rol 50 mcg/dose blistr [...] Available Not Available No t Available OneTouch Ultra Test strips USE TO [...] with needle 1 mL 31 gauge x /16 USE 6 TIMES PER DAY DIRECTED active [...] Ultra-Fine Short Pen Needle 31 gauge x 5/16 USE TO INJECT INSULIN DAILY DIRECTED 2023 [...] 2024 active Not Available Not Available Not Avfernanda mckeon OneTouch Ultra2 Meter USE DIRECTED TO CHECK [...] WEEKLY 2024 active Not Available Not Available Not Sami mckeon [facility] COVID-19 Antigen Rapid Home Test kit DIRECTED [...] Updated DateTime 11/14/2024 165.1 cm 36.5 kg/m2 85975.45 g Anjelica Dobbins MA [facility] 11/14/2024 10:33:39 Date Recorded Heart rate Oxygen saturation Oxygen saturation in Arterial blood by Pulse oximetry Systolic blood pressure Diastolic blood pressure Provider Name and Address Organization Details Last Updated DateTime 5 94 /min 97 % 97 % 120 mm[Hg] 62 mm[Hg] Geri Whitfield MA [place] - [facility] 5 10:25:36 Date Recorded Body height Body mass index (BMI) Body weight Heart rate Oxygen saturation Oxygen saturation in Arterial blood by Pulse oximetry Systolic blood pressure Diastolic blood pressure Provider Name and Address Organization Details Last Updated DateTime 5 165.1 cm 37.2 kg/m2 612377. 25 g 94 /min 98 % 98 % 120 mm[Hg] 64 mm[Hg] Kalee Stone MA [facility] 5 15:12:57 Date Recorded Body height Body mass index (BMI) Body weight Heart rate Oxygen saturation Oxygen saturation in Arterial blood by Pulse oximetry Systolic blood pressure Diastolic blood pressure Provider Name and Address Organization Details Last Updated DateTime 4 165.1 cm 36.2 kg/m2 31429.7 g 93 /min 95 % 95 % 108 mm[Hg] 62 mm[Hg] Kalee Stone MA [facility] 4 14:38:43 Date Recorded Body height Body mass index (BMI) Body weight Heart rate Oxygen saturation Oxygen saturation in Arterial blood by Pulse oximetry Systolic blood pressure Diastolic blood pressure Provider Name and Address Organization Details Last Updated DateTime 4 165.1 cm 36.2 kg/m2 97212.0 6 g 92 /min 95 % 95 % 98 mm[Hg] 62 mm[Hg] Geri Whitfield MA [facility] 4 14:26:05 Date Recorded Body height Body mass index (BMI) Body weight Heart rate Oxygen saturation Oxygen saturation in Arterial blood by Pulse oximetry Systolic blood pressure Diastolic blood pressure Provider Name and Address Organization Details Last Updated DateTime 4 165.1 cm 36.4 kg/m2 43902.2 9 g 92 /min 94 % 94 % 132 mm[Hg] 68 mm[Hg] Kalee Stone MA [facility] 4 14:24:46 Social History Question Answer Notes LastModified by Organizat ion Details LastModified Time Tobacco Smoking Status Never Smoker Ewa Lockwood MA [facility] 11/19/2023 15:08:08 Do You Have An Advance Directive? Yes Information not available 03/19/2024 Are You Blind Or Do You Have Difficulty Seeing? Yes Glaucoma Information not available 03/19/2024 What Is Your Level Of Caffeine Consumption? Occasional Information not available 03/19/2024 In The 14 Days Before Symptom Onset, Have You Had [facility] While That Case Was Ill? No [...] Or The Highest Degree You Have Received? [id number] Information not available 03/19/2024 Are There Any Guns Present In Your Home? No Information not available 11/19/2023 In The Past 7 Days, How Many Days Did You Exercise? 0 Information not available 03/19/2024 In The Past 7 Days, How Much Pain Have You [place]? Some Information not available 03/19/2024 In General, [...] Past 7 Days, How Often Have You [place] Sleepy In The Daytime? Usually Information not [...] anxious, or unable to sleep at night)? [id number] Information not available 03/19/2024 Family History Relationship Description Onset Age of this Age Resolved Age Notes LastModified by Organization Details LastModified Time Mother Asthma [email or web address] Not availabl e 12/03/2023 14:16:17 Mother Diabetes mellitus [email or web address] Not available 11/22 14:16:22 Medical History Condition Response Coronary Artery Disease N Other N High Blood Pressure Y Atrial Fibrillation N Kidney or Bladder Problems N Thyroid Problems N GI Problems N Depression N COPD N Blood Clots N Skin Problems N Anemia N Heart Attack ([place]) N Anxiety Disorder N Diabetes Y Muscle, [...] zoster recombinant 8 completed Ewa Lockwood [place], [place] [facility] 11/19/2023 15:30:46 Influenza, high-dose, quadrivalent, PF 2 completed Ewa Lockwood [place] [facility] 11/19/2023 15:30:46 Influenza, high-dose, quadrivalent, PF 1 completed Ewa Lockwood [place] [facility] 11/19/2023 15:30:46 MMR 3 completed Ewa Lockwood [place] [facility] 11/19/2023 15:30:46 Influenza, adjuvanted, [...] 11/19/2023 15:30:47 pneumococcal polysaccharide PPV23 9 completed [place]wa [place] [facility] 11/19/2023 15:30:47 tetanus toxoid, unspecified formulation 2 completed Ewa [place] [facility] 11/19/2023 15:30:47 Pneumococcal conjugate PCV 13 7 completed Ewa [place] [facility] 11/19/2023 15:30:47 Influenza, high-dose, trivalent, PF 8 completed Ewa Lock[place] [facility] 11/19/2023 15:30:47 Influenza, high-dose, trivalent, PF 7 completed Ewa Lock[place] [facility] 11/19/2023 15:30:47 Influenza, high-dose, trivalent, PF 4 completed Sophie Green MD Attn: Accounting,[address] [place], [address], [place] [facility] 07/13/2024 17:46:53 Past Encounters Encounter ID Performer Location Encounter Start Date Encounter Closed Date Diagnosis/Indication Diagnosis SNOMED-CT Code Diagnosis ICD10 Code Diagnosis Note [id number] Sophie Green MD [facility] (Adult Med) [address] [place] [address] 11/19/2023 14:45:48 11/19/2023 15:41:44 Type 2 diabetes mellitus 75941673 E11.9 Coronary atherosclerosis 488563970 I25.10 Essential hypertension 58854003 I10 Hyperlipidemia 68204187 E78.5 Obstructiv e sleep apnea syndrome 16844799 G47.33 Obesity 831218304 E66.9 Chronic pa inful neuropathy due to diabetes mellitus 336959850 E11.40 Gastroesop hageal reflux disease without esophagitis 018732730 K21.9 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 8097537779 4979405 J44.9 [id number] Sophie Green MD [facility] (Adult Med) [address] [place] [address] 12/03/2023 13:54:46 12/03/2023 15:03:50 Type 2 diabetes mellitus 63107980 E11.9 Essential hypertension 44509286 I10 Renewal of prescription 566989961 Z76.0 [id number] MD [facility] (Adult Med) [address] [place] [address] 03/04/2024 14:04:30 03/04/2024 15:09:54 Type 2 diabetes mellitus 68064495 E11.9 Essential hypertension 52409218 I10 Hyperlipidemia 04625656 E78.5 Chronic ob structive pulmonary disease 09601143 J44.9 Chronic rhinitis 2298707 6 J31.0 Gastroesop hageal reflux disease without esophagitis 572128065 K21.9 Chronic di astolic heart failure 963749354 I50.32 [id number] Sophie Green MD [facility] (Adult Med) [address] [place] [address] 03/19/2024 11:07:40 03/19/2024 12:38:29 Adult health examination 391877764 Z00.00 Health Risk Assessment collected and reviewed [facility] 764 [address] Z78.0 Screening mammography 24 652705 Z12.31 Screening for malignant neoplasm of colon 824806307 Z12.11 Obesity 749578718 E66.8 [id number] MD [facility] (Adult Med) [address] [place] [address] 04/23/2024 14:19:22 04/23/2024 15:25:46 Cellulitis of right lower limb 4577485148 0574374 L03.020 [id number] Sophie Green MD [facility] (Adult Med) [address] [place] [address] 06/17/2024 14:00:22 06/17/2024 15:17:13 Obesity 390501801 E66.8 Chronic dermatitis 27468 007 L30.9 Administra tion of influenza vaccine 85817945 Z23 Chronic di astolic heart failure 662539171 I50.32 Chronic ob structive pulmonary disease 29216489 J44.9 Chronic rhinitis 0260822 6 J31.0 Essential hypertension 06593489 I10 Gastroesop hageal reflux disease without esophagitis 739983167 K21.9 Hyperlipidemia 11022220 E78.5 Type 2 robert betes mellitus 97421919 E11.9 [id number] MD [facility] (Adult Med) [address] [place] [address] 08/19/2024 14:05:56 08/19/2024 15:27:18 Obesity 651245156 E66.9 Essential hypertension 08349907 I10 Type 2 robert betes mellitus 43024712 E11.9 Chronic di astolic heart failure 309055561 I50.32 Gastroesop hageal reflux disease without esophagitis 121280856 K21.9 Hyperlipidemia 30969677 E78.5 Chronic ob structive pulmonary disease 35265470 J44.9 [id number] Sophie Green MD [facility] (Adult Med) [address] [place] [address] 11/14/2024 10:04:58 11/14/2024 11:14:57 Body mass index 30+ - obesity 479111446 Z68.36 Obesity 076371439 E66.9 Essential hypertension 58393640 I10 Type 2 robert betes mellitus 87260687 E11.9 Sinusitis 44224772 J32.9 Gastroesop hageal reflux disease without esophagitis 221944897 K21.9 Chronic ob structive pulmonary disease 07649221 J44.9 Chronic di astolic heart failure 376769825 I50.32 Hyperlipidemia 91226798 E78.5 [id number] Sophie Green MD [place] [id number] [place] [address] 02/12/2025 14:53:46 02/12/2025 16:12:00 Obese class II 0917933714 59469 E66.812 Essential hypertension 76829230 I10 Type 2 robert betes mellitus 40623927 E11.9 Chronic di astolic heart failure 853446734 I50.32 Hyperlipidemia 00399827 E78.5 Chronic rhinitis 1738438 6 J31.0 Chronic ob structive pulmonary disease 88733987 J44.9 Gastroesop hageal reflux disease without esophagitis 311637564 K21.9 Health Concerns Section Related Observation LastModified by Organization Detai ls LastModified Time None Recorded Concern Status LastModified by Organization Details LastModified Time None Recorded Advance Directives Directive Y: Payers Insurance Date Sequence Insurance Name Policy Number Policy Jones Covered Member ID Jones Member ID Guarantor Name 02/12/2025 2 MEDICAID-ID (SECONDARY PLAN WHEN MEDICARE OR MEDICARE REPLACEMENT PRIMARY) Dequan Alicea Torres [id number] Dequan J Torres 02/17/2025 1 [facility] (MEDICARE REPLACEMENT/AD VANTAGE - HMO) [id number] Dequan J Torrse [id number] Dequan J Torres 02/12/2025 2 MEDICAID[place]: [place] [employer] Dequanyas Alicea Torres [id number] Dequan Deanne Torres Notes Date Note Type Note Provider Name and Address Organization Details Recorded Time 04/23/2024 text/html acute appointmen t for a red swollen leg that is painful denies trauma but I she has been working with her 2nd toe on all of this on her right lower extremity Sophie Green MD Attn: Accounting, [address] [place], [address], [facility] 04/25/2024 21:41:57 06/17/2024 text/html [...] triamcinolone Sophie Green MD Attn: Accounting, [address] [place], [address], [facility] 07/13/2024 17:48:51 08/19/2024 text/html [...] bit Sophie Green MD Attn: [address]ing[address] [place], [address], [facility] 08/23/2024 20:04:29 11/14/2024 text/html Diabetes no polyphasia [...] triamcinolone Sophie Green MD Attn: Accounting[address] [place], [address], [facility] 11/15/2024 20:56:04 02/12/2025 text/html Diabetes no polyphasia [...] triamcinolone Sophie Green MD Attn: Accounting[address] [facility], [place], [address], [facility] 02/14/2025 17:53:44 OBGyn Episode No OBEpisode recorded.
[2025-03-06 12:13] LABS: Basophils Absolute Auto 0.1 K/mm3 (0.0-0.1); Basophils Percent Auto 0.4 % (0.2-1.2); Eosinophils Absolute Auto 0.4 K/mm3 (0-0.3); Eosinophils Percent Auto 2.5 % (0-4.4); Hematocrit 44.6 % (37.0-47.0); Immature Granulocyte Absolute 0.06 K/mm3 (0.00-0.031); Immature Granulocyte Percent A 0.4 % (0-0.5); Lymphocytes Absolute Auto 3.46 K/mm3 (0.9-3.2); Lymphocytes Percent Auto 23.6 % (18.3-44.2); Mean Corpuscular HGB Conc 31.4 g/dl (32-36); Mean Corpuscular Hemoglobin 27.9 pg (26-34); Mean Platelet Volume 9.8 fl (7.4-10.4); Monocytes Percent Auto 6.6 % (2.6-8.5); Neutrophils Absolute Auto 9.7 K/mm3 (1.3-6.7); Neutrophils Percent Auto 66.5 % (45.5-73.1); Platelet Count Result 280 k/mm3 (150-375); Red Blood Count 5.01 M/mm3 (4.2-5.4); Red Cell Distribution Width 14.3 % (11.5-14.5); White Blood Count 14.6 K/mm3 (4.5-10.0)
== END 2025-03-06 11:40 | disposition home or self-care (01) ==
LOC: ANHLAB 11:40
PROVIDERS: PCP Internal Medicine; Visit Provider Internal Medicine Hematology & Oncology
DX: D72.829 Elevated white blood cell count, unspecified (principal)
CPT/HCPCS: 36415; 85025

== ENCOUNTER 2025-03-13 09:44 | Outpatient (CLI) | payer MEDICARE, MEDICAID, SELFPAY ==
[2025-03-13 10:05] LABS: Basophils Absolute Auto 0.1 K/mm3 (0.0-0.1); Basophils Percent Auto 0.5 % (0.2-1.2); Eosinophils Absolute Auto 0.6 K/mm3 (0-0.3); Eosinophils Percent Auto 3.9 % (0-4.4); Hematocrit 43.1 % (37.0-47.0); Hemoglobin 13.8 g/dL (12.0-15.0); Immature Granulocyte Absolute 0.07 K/mm3 (0.00-0.031); Immature Granulocyte Percent A 0.5 % (0-0.5); Lymphocytes Absolute Auto 3.54 K/mm3 (0.9-3.2); Mean Corpuscular Volume 87.4 fl (80-100); Mean Platelet Volume 9.4 fl (7.4-10.4); Monocytes Percent Auto 6.8 % (2.6-8.5); Neutrophils Absolute Auto 10.1 K/mm3 (1.3-6.7); Neutrophils Percent Auto 65.3 % (45.5-73.1); Platelet Count Result 289 k/mm3 (150-375); Red Blood Count 4.93 M/mm3 (4.2-5.4); White Blood Count 15.4 K/mm3 (4.5-10.0)
[2025-03-13 10:08] LABS: Blood Urea Nitrogen 22 mg/dL (8-26); Carbon Dioxide 24 mmol/L (22-30); Chloride 104 mmol/L (98-109); Estimated Glomerular Filt Rate > 60; Glucose 88 mg/dL (70-105); Potassium 4.2 mmol/L (3.5-4.9); Sodium 140 mmol/L (138-146)
[2025-03-13 11:11] LABS: Alanine Aminotransferase 22 U/L (6-35); Albumin Level 3.7 g/dL (3.5-5.1); Alkaline Phosphatase 115 U/L (38-126); Anion Gap 8 mmol/L (4-12); Aspartate Amino Transferase 54 U/L (14-36); Bilirubin,Total 0.5 mg/dL (0.2-1.3); Blood Urea Nitrogen 22 mg/dL (7-17); Calcium 9.5 mg/dL (8.4-10.2); Carbon Dioxide 25 mmol/L (22-30); Chloride 106 mmol/L (98-107); Estimated Glomerular Filt Rate > 60; Glucose 87 mg/dL (65-110); Potassium 4.3 mmol/L (3.4-5.0); Sodium 139 mmol/L (137-145); Total Protein 6.8 g/dL (6.3-8.2)
== END 2025-03-13 09:45 | disposition home or self-care (01) ==
LOC: ANHLAB 09:45
PROVIDERS: PCP Internal Medicine; Visit Provider Internal Medicine Hematology & Oncology
DX: D72.829 Elevated white blood cell count, unspecified (principal)
CPT/HCPCS: 36415; 80047; 80053; 85025